=== PATIENT | male | born 1955 | race African-American/Black ===

== ENCOUNTER 2020-01-01 15:13 | Inpatient (IN) | payer MEDICARE, OTHER ==
[2020-01-01] VITALS (13 sets, daily range): BP systolic 127–158; BP diastolic 72–99
[~2020-01-01] VITALS: Ht 172.7 cm; Wt 83.9 kg
[2020-01-01] MEDS ORDERED: Solu-MEDROL 125mg Inj IVP ONE (15:30)
[2020-01-01] MEDS ORDERED: Terbutaline 1mg/ml Inj SUBQ ONE (15:30)
[2020-01-01] MEDS ORDERED: Rocuronium Bromide 50mg/5ml Inj IV ONE (15:45)
[2020-01-01] MEDS ORDERED: Etomidate 40mg/20ml Inj IV ONE (15:45)
[2020-01-01] MEDS ORDERED: Albuterol/Ipratropium 3ml neb ONE ×2 (16:17→18:03)
[2020-01-01 17:09] LABS: ALANINE AMINOTRANSFERASE 34 U/L (12-78); ALBUMIN 3.5 G/DL (3.4-5.0); ALBUMIN/GLOBULIN RATIO 0.9 (1.0-2.7); ALKALINE PHOSPHATASE 84 U/L (46-116); ANION GAP 17 mmol/L (5-15); ASPARTATE AMINO TRANSFERASE 38 U/L (15-37); BILIRUBIN,TOTAL 0.6 MG/DL (0.2-1.0); BLOOD UREA NITROGEN 11 mg/dL (7-18); CALCIUM 8.8 MG/DL (8.5-10.1); CARBON DIOXIDE 21 MMOL/L (21-32); CHLORIDE 104 MMOL/L (98-107); CKMB 17.1 NG/ML (0.0-3.6); CREATINE KINASE 1165 U/L (26-308); CREATININE 1.4 MG/DL (0.55-1.30); POTASSIUM 3.9 MMOL/L (3.5-5.1); SODIUM 142 MMOL/L (136-145); TRIGLYCERIDES 264 MG/DL (30-150)
[2020-01-01 17:29] LABS: BASOPHILS % (AUTO) 1.4 % (0.0-2.0); EOSINOPHILS % (AUTO) 2.2 % (0.0-3.0); HEMOGLOBIN 13.9 G/DL (14.2-18.0); LYMPHOCYTES % (AUTO) 28.5 % (20.0-45.0); MEAN CORPUSCULAR VOLUME 98 FL (80-99); NEUTROPHILS % (AUTO) 52.9 % (45.0-75.0); PLATELET COUNT 208 K/UL (150-450); RED BLOOD COUNT 4.18 M/UL (4.70-6.10); RED CELL DISTRIBUTION WIDTH 13.5 % (11.6-14.8); WHITE BLOOD COUNT 14.8 K/UL (4.8-10.8)
--- NOTE | 2020-01-01 18:08 | Diagnostic Imaging Report ---
Indication: Headache Technique: Contiguous 5 mm thick transaxial imaging of the head obtained in a Siemens Sensation [address] scanner. Soft tissue and bone windows generated. Automatic Exposure Control was utilized. Total Dose length Product (DLP): 1101.1mGycm CT Dose Index Volume (CTDIvol): 53.4 mGy Comparison: none Findings: The size and configuration of the cortical sulci, basal cisterns, and ventricles are within normal limits for age. There is no mass effect, midline shift, or edema identified. There is no evidence of acute hemorrhage or abnormal intra-axial or extra-axial fluid collections. The bones and soft tissues are unremarkable. There is some opacification of the left posterior ethmoid and sphenoid sinus. Impression: No mass effect, edema or acute bleed. Sinusitis The CT scanner at [facility] is accredited by the [employer] and the scans are performed using dose optimization techniques as appropriate to a performed exam including Automatic Exposure control.
--- NOTE | 2020-01-01 18:19 | Diagnostic Imaging Report ---
Indication: Chest pain Technique: Continuous helical transaxial imaging of the chest was obtained from the thoracic inlet to the upper abdomen. No intravenous contrast was administered. Coronal 2-D reformats were also obtained. Total Dose length Product (DLP): 640.[address] Dose Index Volume (CTDIvol): 15.9 mGy Comparison: none Findings: Endotracheal tube is in good position. There is breathing motion limiting evaluation. Reticular densities are present in the posterior aspects of both lung bases. This appears to be atelectasis. There may be a chronic component of this or scarring present but this is not evaluated well. There is suggestion of mild emphysema within the upper lobes. Aorta is calcified. Heart is grossly unremarkable. Upper abdomen shows cholecystectomy clips. There are degenerative vertebral endplate osteophytes throughout the thoracic spine. IMPRESSION: Limited study due to motion. Posterior basilar reticular densities likely atelectasis. Some degree of chronic disease at the lung bases not excluded. Suggestion of a mild emphysema in the upper lobes. Endotracheal tube in good position. Status post cholecystectomy. The CT scanner at [facility] is accredited by the [employer] and the scans are performed using dose optimization techniques as appropriate to a performed exam including Automatic Exposure control.
--- NOTE | 2020-01-01 19:39 | Emergency Room Report ---
History of Present Illness General Chief Complaint: Overdose Source: EMS Present Illness HPI Patient is a 64-year-old male who presents after increased difficulty with breathing and altered mental status. Patient was brought in by EMS for possible overdose. He had been given Narcan in the field with some improvement. He was noted to be markedly short of breath and had some prior history of COPD. He had history of albuterol inhaler. History markedly limited by patient's mental status. Allergies: Coded Allergies: UNABLE TO ASSESS (Unverified , 01/01/20) COVID-19 Screening Contact w/high risk pt: No Recent Travel to affected area: No Experienced COVID-19 symptoms?: No Patient History Past Medical History: other - Unknown Nursing Documentation-[facility] Past Medical History Deferred: Patient Unconscious Past Medical History: No History, Except For Review of Systems All Other Systems: limited - By altered mental status Physical Exam Vital Signs Date Time Temp Pulse Resp B/P (MAP) Pulse Ox O2 Delivery O2 Flow Rate FiO2 01/01/20 15:09 97.5 100 20 210/100 (136) 100 Non-Rebreather 15.0 01/01/20 15:50 94 Procedures Critical Care Time Critical Care Time Patient had a critical medical condition which untreated could potentially result in life or limb threatening injury. Total critical care time excluding procedures approximately 45 minutes. Intubation Intubation : Consent: Emergent Time of Intubation: 19:33 Intubation Method: orotracheal Tube Size (cm): 7.5 Medications: Etomidate, Rocuronium Breath Sounds after Intubation: equal Intubation Complications: no complications Post Intubation Xray: Yes Attempts: One Patient Tolerated: Well Complications: None Medical Decision Making Diagnostic Impression: Primary Impression: Respiratory failure ER Course Patient presented for altered mental status. Differential diagnosis include was not limited to pneumonia,COPD exacerbation, hypercapnia, CVA among others. Because of complexity of patient's case laboratory tests and imaging studies were ordered. CT imaging was ordered due to patient's altered mental status. Arterial blood gas did show some evidence of hypercapnia. This is post intubation. Patient was given IV steroids due to prior history of reactive airway disease. CT imaging was also ordered of the chest. Dr. Francois Dickey was contacted for inpatient management Labs Test 01/01/20 16:20 01/01/20 16:52 01/01/20 19:20 01/01/20 19:25 White Blood Count 14.8 K/UL (4.8-10.8) Red Blood Count 4.18 M/UL (4.70-6.10) Hemoglobin 13.9 G/DL (14.2-18.0) Hematocrit 41.0 % (42.0-52.0) Mean Corpuscular Volume 98 FL (80-99) Mean Corpuscular Hemoglobin 33.2 PG (27.0-31.0) Mean Corpuscular Hemoglobin Concent 33.9 G/DL (32.0-36.0) Red Cell Distribution Width 13.5 % (11.6-14.8) Platelet Count 208 K/UL (150-450) Mean Platelet Volume 6.0 FL (6.5-10.1) Neutrophils (%) (Auto) 52.9 % (45.0-75.0) Lymphocytes (%) (Auto) 28.5 % (20.0-45.0) Monocytes (%) (Auto) 15.0 % (1.0-10.0) Eosinophils (%) (Auto) 2.2 % (0.0-3.0) Basophils (%) (Auto) 1.4 % (0.0-2.0) Sodium Level 142 MMOL/L (136-145) Potassium Level 3.9 MMOL/L (3.5-5.1) Chloride Level 104 MMOL/L (98-107) Carbon Dioxide Level 21 MMOL/L (21-32) Anion Gap 17 mmol/L (5-15) Blood Urea Nitrogen 11 mg/dL (7-18) Creatinine 1.4 MG/DL (0.55-1.30) Estimat Glomerular Filtration Rate > 60 mL/min (>60) Glucose Level 111 MG/DL (74-106) Calcium Level 8.8 MG/DL (8.5-10.1) Phosphorus Level 4.0 MG/DL (2.5-4.9) Magnesium Level 2.0 MG/DL (1.8-2.4) Total Bilirubin 0.6 MG/DL (0.2-1.0) Aspartate Amino Transf (AST/SGOT) 38 U/L (15-37) Alanine Aminotransferase (ALT/SGPT) 34 U/L (12-78) Alkaline Phosphatase 84 U/L (46-116) Total Creatine Kinase 1165 U/L (26-308) Creatine Kinase MB 17.1 NG/ML (0.0-3.6) Creatine Kinase MB Relative Index 1.4 Troponin I 0.000 ng/mL (0.000-0.056) Total Protein 7.4 G/DL (6.4-8.2) Albumin 3.5 G/DL (3.4-5.0) Globulin 3.9 g/dL Albumin/Globulin Ratio 0.9 (1.0-2.7) Triglycerides Level 264 MG/DL (30-150) Arterial Blood pH 7.249 (7.350-7.450) Arterial Blood Partial Pressure CO2 51.1 mmHg (35.0-45.0) Arterial Blood Partial Pressure O2 233.5 mmHg (75.0-100.0) Arterial Blood HCO3 21.9 mmol/L (22.0-26.0) Arterial Blood Oxygen Saturation 99.2 % (95-100) Arterial Blood Base Excess -5.7 (-2-2) Juan Test Positive Last Vital Signs Date Time Temp Pulse Resp B/P (MAP) Pulse Ox O2 Delivery O2 Flow Rate FiO2 01/01/20 18:30 14 145/72 Mechanical Ventilator 100 01/01/20 18:30 97.5 93 100 14.0 Status: unchanged Disposition: ADMITTED INPATIENT Condition: Critical Referrals: NOT CHOSEN IPA/,REFERRING (PCP) Tomasz Boateng MD Jan 01, 2020 19:39
[2020-01-01 19:41] LABS: APPEARANCE,URINE CLEAR; BILIRUBIN, URINE NEGATIVE (NEGATIVE); COLOR,URINE AMBER; GLUCOSE, URINE (UA) NEGATIVE (NEGATIVE); KETONES,URINE NEGATIVE (NEGATIVE); LEUKOCYTE ESTERASE ,URINE NEGATIVE (NEGATIVE); NITRITE,URINE NEGATIVE (NEGATIVE); PH,URINE 5 (4.5-8.0); PROTEIN,URINE 1+ (NEGATIVE); UROBILINOGEN,URINE NORMAL MG/DL (0.0-1.0)
[2020-01-01] MEDS ORDERED: Nitroglycerin Subl 0.4mg tab SL PRN (19:45)
[2020-01-01] MEDS ORDERED: Miralax 17gm pkt ORAL PRN (19:45)
[2020-01-01] MEDS ORDERED: Acetaminophen 650 MG SUPP RECTAL PRN ×2 (19:45)
[2020-01-01] MEDS: D5 1/2NS w/KCl 20mEq 1,000 ML IV SCH (22:05)
[2020-01-01] MEDS: cefTRIAXone 1 GM in D5W 55 ML IV SCH (22:13)
[2020-01-01] MEDS: Heparin 5000 units/ml inj SUBQ SCH (22:14)
[2020-01-01] MEDS: Azithromycin 500 MG in D5W 275 ML IV SCH (22:24)
[2020-01-02] VITALS (45 sets, daily range): BP systolic 88–163; BP diastolic 56–119
[2020-01-02] MEDS: D5 1/2NS w/KCl 20mEq 1,000 ML IV SCH (03:46)
[2020-01-02 06:02] LABS: HEMATOCRIT 42.2 % (42.0-52.0); MEAN CORPUSCULAR VOLUME 100 FL (80-99); PLATELET COUNT 235 K/UL (150-450); RED BLOOD COUNT 4.23 M/UL (4.70-6.10)
[2020-01-02 06:16] LABS: ALANINE AMINOTRANSFERASE 39 U/L (12-78); ALBUMIN 3.4 G/DL (3.4-5.0); ALKALINE PHOSPHATASE 94 U/L (46-116); ANION GAP 9 mmol/L (5-15); ASPARTATE AMINO TRANSFERASE 39 U/L (15-37); BILIRUBIN,DIRECT 0.2 MG/DL (0.0-0.3); BILIRUBIN,TOTAL 0.7 MG/DL (0.2-1.0); BLOOD UREA NITROGEN 17 mg/dL (7-18); CALCIUM 7.9 MG/DL (8.5-10.1); CARBON DIOXIDE 20 MMOL/L (21-32); CHLORIDE 104 MMOL/L (98-107); CREATININE 2.1 MG/DL (0.55-1.30); PHOSPHORUS 2.9 MG/DL (2.5-4.9); SODIUM 134 MMOL/L (136-145)
[2020-01-02 06:20] LABS: WHITE BLOOD COUNT 31.2 K/UL (4.8-10.8)
[2020-01-02 06:43] LABS: POTASSIUM 7.8 MMOL/L (3.5-5.1)
[2020-01-02] MEDS: Heparin 5000 units/ml inj SUBQ SCH ×2 (08:23→20:42)
[2020-01-02] MEDS ORDERED: NS IVPB SCH (10:00)
[2020-01-02] MEDS ORDERED: FENTANYL CITRATE IVPB SCH (10:00)
--- NOTE | 2020-01-02 11:00 | History and Physical Report ---
DATE OF ADMISSION: 01/01/2020 INTENSIVE CARE UNIT NOTE CHIEF COMPLAINT AND REASON FOR HOSPITALIZATION: The patient admitted with respiratory failure. HISTORY OF PRESENT ILLNESS: The patient is a 64-year-old man who presents with respiratory failure. He was seen in the emergency room and intubated. He had a CT of lungs showing right greater than left bilateral basilar atelectasis and infiltrates. The patient has known COPD and hepatitis C. He had a CT of brain that showed no acute findings. There is a concern for possible drug use. ALLERGIES: None known. SURGERIES: None per family. HABITS: He is a current smoker. REVIEW OF SYSTEMS: Unable according to the family. Major problems only as noted above. No other issues. PHYSICAL EXAMINATION: GENERAL: The patient is intubated, sedated. VITAL SIGNS: Blood pressure 98/65 to 106/66, pulse is 84-94, respirations 14-20, O2 saturation is 100% on 70% FiO2, and temperature 98.5. HEAD, EYES, EARS, NOSE, THROAT: His eyes are closed. He is orally intubated. He has an OG tube. NECK: No adenopathy. LUNGS: Distant breath sounds. I hear no rales or rhonchi. HEART: Rhythm is regular. Tachycardic. I hear no murmur. ABDOMEN: Mildly distended. I am unable to feel liver or spleen. GENITOURINARY: Card catheter is in place with some blood-tinged urine. EXTREMITIES: No edema, cyanosis, or clubbing. NEUROLOGIC: The patient is sedated. PERTINENT LABS: Initial white count 14.8 and repeat 31.2, hemoglobin is 14. Sodium 142, potassium 3.9. BUN 11 and creatinine 1.4, repeat 17 and 2.1, with potassium of 7.8, which could be hemolyzed. Troponin zero. CK 1165. AST 38, ALT 34. Lactic acid 4.7 and 1.7. Tox-screen is positive for opiates, benzodiazepines, and marijuana. IMPRESSION: 1. Acute respiratory failure. 2. Pneumonia, likely community-acquired, rule out COVID-19. 3. COPD with acute exacerbation. 4. Rhabdomyolysis. 5. Acute kidney injury, likely from obstruction, possibly from rhabdo. 6. Mild abdominal distention. 7. Mild elevation of liver enzymes. PLAN: All ICU orders have been given pulmonary care treat for pneumonia. Testing for COVID-19 and treating the above as indicated. His condition is critical. I have called the family to discuss. Francois Dickey M.D. DR: LISA JOB#: [id number] CC:
--- NOTE | 2020-01-02 11:54 | Diagnostic Imaging Report ---
Indication: OG tube placement Comparison: None Single view of the abdomen obtained Findings: OG tube is present. The tip is just past the EG junction. The proximal port is above the EG junction. The tube should be advanced minimal 5 cm further. There is a relative absence of bowel gas. Surgical clips in the right upper quadrant noted. IMPRESSION: OG tube is high and should be advanced further. This was discussed with the nurse.
--- NOTE | 2020-01-02 12:23 | Diagnostic Imaging Report ---
Indication: Dyspnea Comparison: None A single view chest radiograph was obtained. Findings: Endotracheal tube is in good position. There is mild pulmonary vascular congestion. Heart is enlarged. No definite pleural effusion seen. IMPRESSION: Mild pulmonary vascular congestion
--- NOTE | 2020-01-02 12:35 | Diagnostic Imaging Report ---
Indication: Dyspnea Comparison: 01/01/2020 A single view chest radiograph was obtained. Findings: No definite infiltrate or pulmonary vascular congestion identified. Endotracheal tube position satisfactory. There is an NG tube present but the the distal part of the tube is not seen well on this study and its position is unknown. The heart is enlarged. The aorta is mildly enlarged consistent with atherosclerotic vascular disease. The bones are osteopenic. There are thoracic vertebral enthesophytes at multiple levels. Impression: No change Query position of the NG tube which may terminate in the midesophagus.
[2020-01-02] MEDS: fentaNYL Citrate 2500mcg in NS 250ml IV SCH ×2 (12:40→23:11)
[2020-01-02] MEDS: Solu-MEDROL 40mg Inj IVP SCH ×2 (15:09→23:16)
[2020-01-02] MEDS ORDERED: Heparin1,000 units/500ml Premix(Conc:2 units/ml) IV PRN (18:58)
[2020-01-02] MEDS ORDERED: Lidocaine 1% Plain 30 ml INJ PRN (18:58)
--- NOTE | 2020-01-02 18:59 | Consultation ---
DATE OF CONSULTATION: 01/02/2020 PULMONARY CONSULTATION CONSULTING PHYSICIAN: Hardik Medina M.D. HISTORY OF PRESENT ILLNESS: This is a 64-year-old male who is seen and admitted to the hospital with respiratory failure. He has a history of chronic hep C and COPD. He was intubated by the ER physician. The patient was brought in by paramedics with the history of possible overdose and was given Narcan with some improvement. No other history is known about this patient. He was intubated by the ER physician and is now seen in the ICU. PAST MEDICAL HISTORY: Not known except for COPD and hep C. HOME MEDICATIONS: Unknown. ALLERGIES: None. PHYSICAL EXAMINATION: GENERAL: Revealed an intubated male. VITAL SIGNS: Blood pressure is 117/90, heart rate is 94, and respirations are 18. O2 saturation is 96% on 80% FiO2. HEENT: Unremarkable. LUNGS: Decreased breath sounds bilaterally with normal heart sounds. ABDOMEN: Soft. EXTREMITIES: There is no edema. LABORATORY AND DIAGNOSTIC DATA: Lab testing shows white count 31,000, hemoglobin of 14, and platelet count is normal. Chemistries show potassium of 7.8 and creatinine 2.1. ABG shows pH 7.24, pCO2 51, pO2 of 233. Toxicology is positive for opiates, benzodiazepines, and marijuana. CT chest was obtained, which showed chronic-appearing changes, emphysema, endotracheal tube, status post cholecystectomy, and posterior basal reticular densities suspicious for pneumonia. Head CT was also obtained, which was negative for any acute pathology. Nares was negative for influenza A and B. IMPRESSION: 1. Hyperkalemia. 2. Respiratory failure. 3. Marked leukocytosis. 4. Chronic obstructive pulmonary disease. 5. History of hepatitis C. DISCUSSION: 1. Admit to the hospital. 2. Continue IV fluids. 3. Avoid potassium. 4. Continue azithromycin, Rocephin, Pepcid, infusion. 5. DVT prophylaxis. 6. Propofol infusion. 7. The patient has received Solu-Medrol 40 mg IV x1. I will continue him on the 40 IV q.6 h. 8. Consider broadening antibiotic coverage. 9. We will follow carefully. Wean as tolerated. Hardik Medina M.D. DR: TIMOTHY JOB#: [id number] CC:
[2020-01-02] MEDS: Dyna-Hex 2% Top Sol 2oz TOPIC SCH (20:41)
[2020-01-02] MEDS: Azithromycin 500 MG in D5W 275 ML IV SCH (20:41)
[2020-01-02] MEDS: cefTRIAXone 1 GM in D5W 55 ML IV SCH (23:16)
[2020-01-03] VITALS (56 sets, daily range): BP systolic 93–195; BP diastolic 27–144
[2020-01-03 00:03] LABS: ANION GAP 10 mmol/L (5-15); BLOOD UREA NITROGEN 21 mg/dL (7-18); CALCIUM 8.2 MG/DL (8.5-10.1); CARBON DIOXIDE 24 MMOL/L (21-32); CHLORIDE 104 MMOL/L (98-107); CREATININE 1.2 MG/DL (0.55-1.30); SODIUM 137 MMOL/L (136-145)
[2020-01-03 00:09] LABS: POTASSIUM 6.3 MMOL/L (3.5-5.1)
[2020-01-03 05:48] LABS: HEMATOCRIT 39.1 % (42.0-52.0); HEMOGLOBIN 12.9 G/DL (14.2-18.0); MEAN CORPUSCULAR VOLUME 101 FL (80-99); PLATELET COUNT 176 K/UL (150-450); RED BLOOD COUNT 3.86 M/UL (4.70-6.10); RED CELL DISTRIBUTION WIDTH 13.4 % (11.6-14.8)
[2020-01-03 05:55] LABS: WHITE BLOOD COUNT 29.3 K/UL (4.8-10.8)
[2020-01-03 05:58] LABS: ALANINE AMINOTRANSFERASE 41 U/L (12-78); ALBUMIN 3.2 G/DL (3.4-5.0); ALBUMIN/GLOBULIN RATIO 0.8 (1.0-2.7); ALKALINE PHOSPHATASE 74 U/L (46-116); ANION GAP 7 mmol/L (5-15); ASPARTATE AMINO TRANSFERASE 52 U/L (15-37); BILIRUBIN,TOTAL 0.4 MG/DL (0.2-1.0); BLOOD UREA NITROGEN 22 mg/dL (7-18); CARBON DIOXIDE 26 MMOL/L (21-32); CHLORIDE 99 MMOL/L (98-107); CREATINE KINASE 1759 U/L (26-308); CREATININE 1.1 MG/DL (0.55-1.30); POTASSIUM 5.8 MMOL/L (3.5-5.1); SODIUM 132 MMOL/L (136-145)
[2020-01-03] MEDS: Solu-MEDROL 40mg Inj IVP SCH ×3 (06:33→22:02)
--- NOTE | 2020-01-03 07:24 | General Progress Note ---
Assessment/Plan Problem List: (1) Rhabdomyolysis ICD Codes: M62.82 - Rhabdomyolysis SNOMED: 351159461 (2) Elevated liver enzymes ICD Codes: R74.8 - Abnormal levels of other serum enzymes SNOMED: 182232374 (3) Hyperkalemia ICD Codes: E87.5 - Hyperkalemia SNOMED: 53344889 (4) LUDMILA (acute kidney injury) ICD Codes: N17.9 - Acute kidney failure, unspecified SNOMED: 1921370, 55486425 (5) Suspected COVID-19 virus infection ICD Codes: R68.89 - Other general symptoms and signs SNOMED: 472886758 (6) COPD (chronic obstructive pulmonary disease) ICD Codes: J44.9 - Chronic obstructive pulmonary disease, unspecified SNOMED: 52381357 (7) Respiratory failure ICD Codes: J96.90 - Respiratory failure, unspecified, unspecified whether with hypoxia or hypercapnia SNOMED: 427711511 Assessment/Plan: He needs more sedation, propofol, picc as poor access, vigorous hydration , ludmila and K improving, Vent care, icu orders reviewed and updated, icu time 35 min Subjective ROS Limited/Unobtainable: Yes Allergies: Coded Allergies: UNABLE TO ASSESS (Unverified , 01/01/20) Subjective on vent, agitated, 70% FIO2 Objective Last 24 Hour Vital Signs Date Time Temp Pulse Resp B/P (MAP) Pulse Ox O2 Delivery O2 Flow Rate FiO2 01/03/20 06:34 116 18 01/03/20 06:00 115 18 157/79 (105) 93 01/03/20 06:00 18 Mechanical Ventilator 01/03/20 05:25 109 18 70 01/03/20 05:00 18 Mechanical Ventilator 01/03/20 04:00 70 01/03/20 04:00 Mechanical Ventilator 01/03/20 04:00 14 Mechanical Ventilator 01/03/20 04:00 101 01/03/20 04:00 99.2 105 14 157/64 (95) 96 01/03/20 03:25 104 17 70 01/03/20 03:00 103 13 132/78 (96) 95 01/03/20 03:00 17 Mechanical Ventilator 01/03/20 02:00 13 Mechanical Ventilator 01/03/20 01:19 106 18 70 01/03/20 01:00 99 14 132/67 (88) 98 01/03/20 01:00 18 Mechanical Ventilator 01/03/20 00:00 70 01/03/20 00:00 Mechanical Ventilator 01/03/20 00:00 76 01/03/20 00:00 21 Mechanical Ventilator 01/03/20 00:00 98.6 112 16 147/115 (126) 93 01/02/20 23:20 114 17 70 01/02/20 23:11 17 Mechanical Ventilator 70 01/02/20 23:00 114 18 142/119 (127) 98 01/02/20 22:00 107 21 119/90 (100) 96 01/02/20 21:30 106 16 70 01/02/20 21:00 106 11 143/80 (101) 95 01/02/20 21:00 17 Mechanical Ventilator 01/02/20 20:00 Mechanical Ventilator 01/02/20 20:00 13 Mechanical Ventilator 01/02/20 20:00 70 01/02/20 20:00 88 01/02/20 20:00 98.7 113 13 129/106 (114) 94 01/02/20 19:20 106 17 70 01/02/20 19:00 94 16 135/65 (88) 98 01/02/20 19:00 16 Mechanical Ventilator 70 01/02/20 19:00 99.0 96 15 120/79 (93) 99 01/02/20 18:30 107 18 133/69 (90) 97 01/02/20 18:21 99.6 01/02/20 18:00 96 15 120/79 (93) 99 01/02/20 18:00 14 Mechanical Ventilator 70 01/02/20 17:30 100.0 113 15 108/82 (91) 94 01/02/20 17:00 14 Mechanical Ventilator 70 01/02/20 17:00 99 18 131/62 (85) 98 01/02/20 16:40 93 21 90 01/02/20 16:30 83 13 111/77 (88) 97 01/02/20 16:02 88 01/02/20 16:00 89 13 127/71 (89) 96 01/02/20 16:00 70 01/02/20 16:00 14 Mechanical Ventilator 70 01/02/20 16:00 Mechanical Ventilator 01/02/20 15:30 93 16 116/67 (83) 96 01/02/20 15:00 95 15 116/67 (83) 96 01/02/20 15:00 14 Mechanical Ventilator 70 01/02/20 14:53 82 14 90 01/02/20 14:30 82 14 120/63 (82) 100 01/02/20 14:15 84 14 129/68 (88) 99 01/02/20 14:00 84 13 125/62 (83) 99 01/02/20 14:00 14 Mechanical Ventilator 70 01/02/20 13:30 88 15 118/67 (84) 98 01/02/20 13:00 86 13 106/64 (78) 98 01/02/20 13:00 14 Mechanical Ventilator 70 01/02/20 12:45 92 20 90 01/02/20 12:40 16 Mechanical Ventilator 70 01/02/20 12:30 78 13 135/81 (99) 100 01/02/20 12:11 76 01/02/20 12:00 14 Mechanical Ventilator 70 01/02/20 12:00 98.5 76 14 129/74 (92) 100 01/02/20 12:00 Mechanical Ventilator 01/02/20 12:00 70 01/02/20 11:30 75 14 131/69 (89) 100 01/02/20 11:01 93 16 80 01/02/20 11:00 14 Mechanical Ventilator 70 01/02/20 11:00 77 14 127/79 (95) 99 01/02/20 10:30 80 14 121/72 (88) 99 01/02/20 10:00 83 19 129/77 (94) 98 01/02/20 10:00 14 Mechanical Ventilator 70 01/02/20 09:30 95 16 117/93 (101) 96 01/02/20 09:02 91 18 90 01/02/20 09:00 96 16 141/85 (103) 96 01/02/20 09:00 16 Mechanical Ventilator 70 01/02/20 08:45 92 11 115/56 (75) 97 01/02/20 08:30 95 11 163/94 (117) 97 01/02/20 08:24 16 Mechanical Ventilator 70 01/02/20 08:00 70 01/02/20 08:00 Mechanical Ventilator 01/02/20 08:00 16 Mechanical Ventilator 70 01/02/20 08:00 93 14 113/71 (85) 99 01/02/20 07:35 91 01/02/20 07:30 94 16 117/72 (87) 99 Intake and Output 01/02/20 01/03/20 19:00 07:00 Intake Total 2611.666 ml 2046 ml Output Total 870 ml 485 ml Balance 1741.666 ml 1561 ml IV Total 2611.666 ml 2046 ml Output Urine Total 870 ml 485 ml Laboratory Tests 01/02/20 23:26: Sodium Level 137, Potassium Level 6.3*H, Chloride Level 104, Carbon Dioxide Level 24, Anion Gap 10, Blood Urea Nitrogen 21H, Creatinine 1.2, Estimat Glomerular Filtration Rate > 60, Glucose Level 102, Calcium Level 8.2L 01/03/20 04:00: Sodium Level 132L, Potassium Level 5.8H, Chloride Level 99, Carbon Dioxide Level 26, Anion Gap 7, Blood Urea Nitrogen 22H, Creatinine 1.1, Estimat Glomerular Filtration Rate > 60, Glucose Level 87, Calcium Level 8.0L, White Blood Count 29.3*H, Red Blood Count 3.86L, Hemoglobin 12.9L, Hematocrit 39.1L, Mean Corpuscular Volume 101H, Mean Corpuscular Hemoglobin 33.3H, Mean Corpuscular Hemoglobin Concent 32.9, Red Cell Distribution Width 13.4, Platelet Count 176, Mean Platelet Volume 5.8L, Neutrophils (%) (Auto) , Lymphocytes (%) ( Auto) , Monocytes (%) (Auto) , Eosinophils (%) (Auto) , Basophils (%) (Auto) , Neutrophils % (Manual) [Pending], Lymphocytes % (Manual) [Pending], Platelet Estimate [Pending], Platelet Morphology [Pending], Total Bilirubin 0.4, Aspartate Amino Transf (AST/SGOT) 52H, Alanine Aminotransferase (ALT/SGPT) 41, Alkaline Phosphatase 74, Total Creatine Kinase 1759H, Troponin I 0.026, Total Protein 7.0, Albumin 3.2L, Globulin 3.8, Albumin/Globulin Ratio 0.8L Height (Feet): 5 Height (Inches): 8.00 Weight (Pounds): 200 General Appearance: moderate distress EENT: normal ENT inspection Neck: normal alignment Cardiovascular: regular rhythm, tachycardia Respiratory/Chest: rhonchi - bilaterally Abdomen: non tender Neurologic: other - agitated moves all ext Lang,Francois MD Jan 03, 2020 07:24
[2020-01-03] MEDS: fentaNYL Citrate 2500mcg in NS 250ml IV SCH ×3 (07:36→20:24)
[2020-01-03] MEDS: Heparin 5000 units/ml inj SUBQ SCH ×2 (09:00→20:42)
--- NOTE | 2020-01-03 11:08 | Brief Operative Note ---
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
--- NOTE | 2020-01-03 11:09 | Pulmonology Progress Note ---
Assessment/Plan Assessment/Plan IMPRESSION: 1. Hyperkalemia. 2. Respiratory failure. 3. Marked leukocytosis. 4. Chronic obstructive pulmonary disease. 5. History of hepatitis C. DISCUSSION: 1. Will adjust vent 2. Continue IV fluids. 3. Avoid potassium. 4. Continue azithromycin, Rocephin, Pepcid, propofol infusion. 5. DVT prophylaxis. 6. Check AM labs and ABG 7. The patient has received Solu-Medrol 40 mg IV x1. I will continue him on the 40 IV q.6 h. 8. Broad antibiotic coverage. 9. I will follow carefully. Wean as tolerated. Hardik Medina M.D. Subjective Interval Events: Remains intubated; doing poorly Constitutional: Reports: no symptoms HEENT: Repors: no symptoms Respiratory: Reports: no symptoms Cardiovascular: Reports: no symptoms Gastrointestinal/Abdominal: Reports: no symptoms Allergies: Coded Allergies: UNABLE TO ASSESS (Unverified , 01/01/20) Objective Last 24 Hour Vital Signs Date Time Temp Pulse Resp B/P (MAP) Pulse Ox O2 Delivery O2 Flow Rate FiO2 01/03/20 10:55 60 01/03/20 10:42 109 20 60 01/03/20 10:05 70 01/03/20 09:25 106 19 70 01/03/20 09:00 124 35 143/102 (116) 98 01/03/20 08:00 124 35 143/102 (116) 98 01/03/20 08:00 70 01/03/20 08:00 Mechanical Ventilator 01/03/20 07:51 111 37 70 01/03/20 07:30 97.4 120 18 170/117 (134) 96 01/03/20 07:00 120 18 170/117 (134) 96 01/03/20 07:00 22 Mechanical Ventilator 01/03/20 06:34 116 18 01/03/20 06:00 115 18 157/79 (105) 93 01/03/20 06:00 18 Mechanical Ventilator 01/03/20 05:25 109 18 70 01/03/20 05:00 117 18 170/117 (134) 94 01/03/20 05:00 18 Mechanical Ventilator 01/03/20 04:00 70 01/03/20 04:00 Mechanical Ventilator 01/03/20 04:00 14 Mechanical Ventilator 01/03/20 04:00 101 01/03/20 04:00 99.2 105 14 157/64 (95) 96 01/03/20 03:25 104 17 70 01/03/20 03:00 103 13 132/78 (96) 95 01/03/20 03:00 17 Mechanical Ventilator 01/03/20 02:00 13 Mechanical Ventilator 01/03/20 02:00 104 14 150/74 (99) 95 01/03/20 01:19 106 18 70 01/03/20 01:00 99 14 132/67 (88) 98 01/03/20 01:00 18 Mechanical Ventilator 01/03/20 00:00 70 01/03/20 00:00 Mechanical Ventilator 01/03/20 00:00 76 01/03/20 00:00 21 Mechanical Ventilator 01/03/20 00:00 98.6 112 16 147/115 (126) 93 01/02/20 23:20 114 17 70 01/02/20 23:11 17 Mechanical Ventilator 70 01/02/20 23:00 114 18 142/119 (127) 98 01/02/20 22:00 107 21 119/90 (100) 96 01/02/20 21:30 106 16 70 01/02/20 21:00 106 11 143/80 (101) 95 01/02/20 21:00 17 Mechanical Ventilator 01/02/20 20:00 Mechanical Ventilator 01/02/20 20:00 13 Mechanical Ventilator 01/02/20 20:00 70 01/02/20 20:00 88 01/02/20 20:00 98.7 113 13 129/106 (114) 94 01/02/20 19:20 106 17 70 01/02/20 19:00 94 16 135/65 (88) 98 01/02/20 19:00 16 Mechanical Ventilator 70 01/02/20 19:00 99.0 96 15 120/79 (93) 99 01/02/20 18:30 107 18 133/69 (90) 97 01/02/20 18:21 99.6 01/02/20 18:00 96 15 120/79 (93) 99 01/02/20 18:00 14 Mechanical Ventilator 70 01/02/20 17:30 100.0 113 15 108/82 (91) 94 01/02/20 17:00 14 Mechanical Ventilator 70 01/02/20 17:00 99 18 131/62 (85) 98 01/02/20 16:40 93 21 90 01/02/20 16:30 83 13 111/77 (88) 97 01/02/20 16:02 88 01/02/20 16:00 89 13 127/71 (89) 96 01/02/20 16:00 70 01/02/20 16:00 14 Mechanical Ventilator 70 01/02/20 16:00 Mechanical Ventilator 01/02/20 15:30 93 16 116/67 (83) 96 01/02/20 15:00 95 15 116/67 (83) 96 01/02/20 15:00 14 Mechanical Ventilator 70 01/02/20 14:53 82 14 90 01/02/20 14:30 82 14 120/63 (82) 100 01/02/20 14:15 84 14 129/68 (88) 99 01/02/20 14:00 84 13 125/62 (83) 99 01/02/20 14:00 14 Mechanical Ventilator 70 01/02/20 13:30 88 15 118/67 (84) 98 01/02/20 13:00 86 13 106/64 (78) 98 01/02/20 13:00 14 Mechanical Ventilator 70 01/02/20 12:45 92 20 90 01/02/20 12:40 16 Mechanical Ventilator 70 01/02/20 12:30 78 13 135/81 (99) 100 01/02/20 12:11 76 01/02/20 12:00 14 Mechanical Ventilator 70 01/02/20 12:00 98.5 76 14 129/74 (92) 100 01/02/20 12:00 Mechanical Ventilator 01/02/20 12:00 70 01/02/20 11:30 75 14 131/69 (89) 100 Intake and Output 01/02/20 01/03/20 19:00 07:00 Intake Total 2611.666 ml 2281 ml Output Total 870 ml 545 ml Balance 1741.666 ml 1736 ml IV Total 2611.666 ml 2281 ml Output Urine Total 870 ml 545 ml General Appearance: no acute distress HEENT: normocephalic Respiratory/Chest: chest wall non-tender, lungs clear Cardiovascular: normal peripheral pulses Abdomen: normal bowel sounds Microbiology Date/Time Source Procedure Growth Status 01/01/20 16:11 Blood Blood Culture - Preliminary NO GROWTH AFTER 24 HOURS Resulted 01/01/20 15:29 Blood Blood Culture - Preliminary Resulted 01/01/20 19:00 Nasal Nares MRSA Culture - Final NO METHICILLIN RESISTANT STAPH AUREUS... Complete 01/01/20 17:10 Nasal Nares - Final Complete 01/01/20 17:10 Nasal Nares - Final Complete 01/01/20 19:00 Rectum VRE Culture - Final NO VANCOMYCIN RESISTANT ENTEROCOCCUS ... Complete Laboratory Tests 01/02/20 23:26: Sodium Level 137, Potassium Level 6.3*H, Chloride Level 104, Carbon Dioxide Level 24, Anion Gap 10, Blood Urea Nitrogen 21H, Creatinine 1.2, Estimat Glomerular Filtration Rate > 60, Glucose Level 102, Calcium Level 8.2L 01/03/20 04:00: Sodium Level 132L, Potassium Level 5.8H, Chloride Level 99, Carbon Dioxide Level 26, Anion Gap 7, Blood Urea Nitrogen 22H, Creatinine 1.1, Estimat Glomerular Filtration Rate > 60, Glucose Level 87, Calcium Level 8.0L, White Blood Count 29.3*H, Red Blood Count 3.86L, Hemoglobin 12.9L, Hematocrit 39.1L, Mean Corpuscular Volume 101H, Mean Corpuscular Hemoglobin 33.3H, Mean Corpuscular Hemoglobin Concent 32.9, Red Cell Distribution Width 13.4, Platelet Count 176, Mean Platelet Volume 5.8L, Neutrophils (%) (Auto) , Lymphocytes (%) ( Auto) , Monocytes (%) (Auto) , Eosinophils (%) (Auto) , Basophils (%) (Auto) , Differential Total Cells Counted 100, Neutrophils % (Manual) 83H, Lymphocytes % (Manual) 7L, Monocytes % (Manual) 9, Eosinophils % (Manual) 1, Basophils % ( Manual) 0, Band Neutrophils 0, Platelet Estimate Adequate, Platelet Morphology Normal, Anisocytosis 1+, Macrocytosis 1+, Total Bilirubin 0.4, Aspartate Amino Transf (AST/SGOT) 52H, Alanine Aminotransferase (ALT/SGPT) 41, Alkaline Phosphatase 74, Total Creatine Kinase 1759H, Troponin I 0.026, Total Protein 7.0 , Albumin 3.2L, Globulin 3.8, Albumin/Globulin Ratio 0.8L, Triglycerides Level 190H 01/03/20 07:40: Arterial Blood pH 7.155*L, Arterial Blood Partial Pressure CO2 59.6*H, Arterial Blood Partial Pressure O2 71.6L, Arterial Blood HCO3 20.5L, Arterial Blood Oxygen Saturation 92.7L, Arterial Blood Base Excess -8.8L, Juan Test Positive Current Medications Medications (Trade) Dose Ordered Sig/Samia Route PRN Reason Start Time Stop Time Status Last Admin Dose Admin Acetaminophen (Tylenol) 650 mg Q4H PRN ORAL fever 01/01/20 19:45 01/31/20 19:44 01/02/20 17:51 Acetaminophen (Tylenol) 650 mg Q4H PRN ORAL Mild Pain (Pain Scale 1-3) 01/01/20 19:45 01/31/20 19:44 Acetaminophen (Tylenol) 650 mg Q4H PRN RECTAL Mild Pain (Pain Scale 1-3) 01/01/20 19:45 01/31/20 19:44 Acetaminophen (Tylenol) 650 mg Q4H PRN RECTAL fever 01/01/20 19:45 01/31/20 19:44 Azithromycin 500 mg/Dextrose 275 ml @ 275 mls/hr Q24H IV 01/01/20 21:00 01/06/20 20:59 01/02/20 20:41 Ceftriaxone Sodium 1 gm/ Dextrose 55 ml @ 110 mls/hr Q24H IV 01/01/20 22:00 01/08/20 21:59 01/02/20 23:16 Chlorhexidine Gluconate (Bhavana-Hex 2%) 1 applic DAILY@2000 TOPIC 01/02/20 20:00 04/01/20 19:59 01/02/20 20:41 Dextrose (Dextrose 50%) 25 ml Q30M PRN IV Hypoglycemia 01/01/20 19:45 03/31/20 19:44 Dextrose (Dextrose 50%) 50 ml Q30M PRN IV Hypoglycemia 01/01/20 19:45 03/31/20 19:44 Famotidine (Pepcid I.v.) 20 mg Q12HR IVP 01/01/20 21:00 01/31/20 20:59 01/02/20 20:41 Fentanyl Citrate 2500 mcg/Sodium Chloride 250 ml @ 0 mls/hr Q24H IV 01/02/20 10:20 01/09/20 10:19 01/02/20 23:11 Haloperidol Lactate 5 mg/ Dextrose 56 ml @ 224 mls/hr Q6H PRN IVPB Agitation 01/03/20 10:00 02/17/20 09:59 Heparin Sodium (Porcine) (Heparin 5000 units/ml) 5,000 units EVERY 12 HOURS SUBQ 01/01/20 21:00 02/15/20 20:59 01/02/20 20:42 Heparin Sodium/ Sodium Chloride (Heparin 1000 units/500ml Premix) 1,000 unit ONCE PRN IV PICC PLACEMENT 01/02/20 18:58 01/04/20 18:57 Lidocaine HCl (Xylocaine 1% 30ml) 30 ml ONCE PRN INJ PICC PLACEMENT 01/02/20 18:58 01/04/20 18:57 Methylprednisolone Sodium Succinate (Solu-MEDROL) 40 mg EVERY 8 HOURS IVP 01/02/20 14:00 04/01/20 13:59 01/03/20 06:33 Nitroglycerin (Ntg) 0.4 mg Q5M PRN SL Prn Chest Pain 01/01/20 19:45 01/31/20 19:44 Ondansetron HCl (Zofran) 4 mg Q6H PRN IVP Nausea & Vomiting 01/01/20 19:45 01/31/20 19:44 Polyethylene Glycol (Miralax) 17 gm DAILYPRN PRN ORAL Constipation 01/01/20 19:45 01/31/20 19:44 Propofol 100 ml @ 0 mls/hr Q24H IV 01/03/20 07:30 01/05/20 07:29 Sodium Chloride 1,000 ml @ 200 mls/hr Q5H IV 01/02/20 08:00 02/01/20 07:59 01/03/20 04:10 Hardik Medina MD Jan 03, 2020 11:09
--- NOTE | 2020-01-03 12:00 | Diagnostic Imaging Report ---
Indications: Needs long-term IV access Technique: Procedure performed at bedside. Procedural timeout performed. Ultrasound confirms patent compressible left basilic vein. Total sterile technique, including sterile probe cover and sterile gel, sterile gloves, hand hygiene, hat, mask,, sterile gown, large sterile drape, and preparation with 2% chlorhexidine utilized. Local anesthesia with 1% lidocaine. Under real-time ultrasound guidance, puncture basilic vein using 21-gauge needle, passage 0.018 guidewire, exchange for 4 Greek peel-away sheath. 4 Greek Bard dual-lumen power PICC cut to 47 cm. It was inserted through the peel-away sheath. Peel-away sheath and guidewire removed. Catheter fixed to the skin. Both catheter ports aspirated and flushed. Patient tolerated procedure well, without immediate complication. Followup chest x-ray obtained, documents catheter tip position at the high right atrium Impression: Successful bedside placement of right arm PICC under sonographic guidance, as described above.
--- NOTE | 2020-01-03 12:17 | Diagnostic Imaging Report ---
Indication: Dyspnea Technique: One view of the chest Comparison: 01/02/2020 Findings: Stable satisfactory position of endotracheal tube. Orogastric tube tip is obscured, was slightly high on previous abdomen radiograph. There is some atelectasis in the right perihilar region which was not evident previously. Bilateral generalized interstitial disease is largely unchanged on the left, appears to have increased on the right. The heart size is normal. Impression: Bilateral interstitial disease, stable on the left and slightly worse on the right Developing right perihilar atelectasis, over one day
[2020-01-03] MEDS: Haloperidol Lactate 5 MG in D5W 55 ML IVPB PRN ×2 (13:50→22:03)
[2020-01-03] MEDS ORDERED: FUROSEMIDE40 MG ORAL (16:32)
[2020-01-03] MEDS ORDERED: VITAMIN D32400 UNIT/ MC (16:32)
[2020-01-03] MEDS ORDERED: COMBIVENT RESPIM4 GM IH (16:32)
[2020-01-03] MEDS ORDERED: MEDROL DOSEPAK4 MG ORAL (16:32)
[2020-01-03] MEDS ORDERED: CARTIA XT180 MG ORAL (16:32)
[2020-01-03] MEDS ORDERED: FLOMAX0.4 MG ORAL (16:32)
[2020-01-03] MEDS ORDERED: BACLOFEN10 MG ORAL (16:32)
[2020-01-03] MEDS ORDERED: SYMBICORT 16010.2 G1 IH (16:32)
[2020-01-03] MEDS ORDERED: POTASSIUM CHLO20 ME2 ORAL (16:32)
[2020-01-03] MEDS ORDERED: ZOFRAN4 M3 ORAL (16:32)
[2020-01-03] MEDS ORDERED: FOLIC ACID0.4 MG ORAL (16:32)
[2020-01-03] MEDS ORDERED: OMEPRAZOLE40 M1 ORAL (16:32)
[2020-01-03] MEDS ORDERED: PROAIR HFA8.5 GM INH (16:32)
[2020-01-03] MEDS ORDERED: Heparin1,000 units/500ml Premix(Conc:2 units/ml) IV PRN (17:15)
[2020-01-03] MEDS ORDERED: Lidocaine 1% Plain 30 ml INJ PRN (17:19)
[2020-01-03] MEDS ORDERED: Vancomycin 1750mg/D5W 550ml IVPB ONE ×2 (19:30)
[2020-01-03] MEDS: Dyna-Hex 2% Top Sol 2oz TOPIC SCH (20:21)
[2020-01-03] MEDS: Azithromycin 500 MG in D5W 275 ML IV SCH (20:22)
[2020-01-03] MEDS: cefTRIAXone 1 GM in D5W 55 ML IV SCH (22:01)
[2020-01-04] VITALS (83 sets, daily range): BP systolic 100–209; BP diastolic 67–137
[2020-01-04] MEDS: fentaNYL Citrate 2500mcg in NS 250ml IV SCH ×3 (03:28→23:08)
[2020-01-04] MEDS: Vancomycin 1.25gm/NS Premix IVPB SCH ×2 (05:00→17:38)
[2020-01-04] MEDS: Solu-MEDROL 40mg Inj IVP SCH ×3 (05:14→22:44)
[2020-01-04 05:30] LABS: HEMATOCRIT 38.9 % (42.0-52.0); HEMOGLOBIN 13.2 G/DL (14.2-18.0); MEAN CORPUSCULAR VOLUME 98 FL (80-99); PLATELET COUNT 157 K/UL (150-450); RED BLOOD COUNT 3.98 M/UL (4.70-6.10); RED CELL DISTRIBUTION WIDTH 12.7 % (11.6-14.8)
[2020-01-04 05:52] LABS: WHITE BLOOD COUNT 23.4 K/UL (4.8-10.8)
[2020-01-04 05:53] LABS: ALANINE AMINOTRANSFERASE 46 U/L (12-78); ALBUMIN 2.9 G/DL (3.4-5.0); ALBUMIN/GLOBULIN RATIO 0.8 (1.0-2.7); ALKALINE PHOSPHATASE 62 U/L (46-116); ANION GAP 9 mmol/L (5-15); ASPARTATE AMINO TRANSFERASE 60 U/L (15-37); BILIRUBIN,TOTAL 0.7 MG/DL (0.2-1.0); BLOOD UREA NITROGEN 21 mg/dL (7-18); CALCIUM 8.4 MG/DL (8.5-10.1); CARBON DIOXIDE 26 MMOL/L (21-32); CHLORIDE 101 MMOL/L (98-107); CREATININE 0.9 MG/DL (0.55-1.30); POTASSIUM 4.8 MMOL/L (3.5-5.1); SODIUM 136 MMOL/L (136-145)
[2020-01-04 05:58] LABS: PHOSPHORUS 2.3 MG/DL (2.5-4.9)
--- NOTE | 2020-01-04 08:56 | Pulmonology Progress Note ---
Assessment/Plan Assessment/Plan IMPRESSION: 1. Hyperkalemia. 2. Respiratory failure. 3. Marked leukocytosis. 4. Chronic obstructive pulmonary disease. 5. History of hepatitis C. DISCUSSION: 1. Will adjust vent; continue 2. Continue IV fluids. 3. Avoid potassium. 4. Continue azithromycin, Rocephin, Pepcid, propofol infusion. 5. DVT prophylaxis. 6. Check AM labs and ABG 7. Solu-Medrol 40 IV q.6 h. 8. Broad antibiotic coverage. 9. I will follow carefully. Wean as tolerated. Hardik Medina M.D. Subjective Interval Events: Doing poorly; bactermic Constitutional: Reports: no symptoms HEENT: Repors: no symptoms Respiratory: Reports: no symptoms Cardiovascular: Reports: no symptoms Gastrointestinal/Abdominal: Reports: no symptoms Allergies: Coded Allergies: UNABLE TO ASSESS (Unverified , 01/01/20) Objective Last 24 Hour Vital Signs Date Time Temp Pulse Resp B/P (MAP) Pulse Ox O2 Delivery O2 Flow Rate FiO2 01/04/20 06:30 116 18 01/04/20 06:30 110 18 01/04/20 06:14 18 133/104 Mechanical Ventilator 70 01/04/20 06:00 22 135/85 Mechanical Ventilator 70 01/04/20 06:00 15 Mechanical Ventilator 70 01/04/20 05:45 116 16 135/85 (102) 01/04/20 05:30 115 17 167/129 (142) 01/04/20 05:28 115 18 60 01/04/20 05:15 124 11 157/88 (111) 01/04/20 05:00 17 204/104 Mechanical Ventilator 70.0 01/04/20 05:00 17 Mechanical Ventilator 70 01/04/20 05:00 127 22 192/98 (129) 01/04/20 04:45 126 24 202/136 (158) 01/04/20 04:30 121 21 179/130 (146) 96 01/04/20 04:15 118 16 169/114 (132) 98 01/04/20 04:00 98.8 114 16 150/90 (110) 96 01/04/20 04:00 Mechanical Ventilator 01/04/20 04:00 122 01/04/20 04:00 22 169/114 Mechanical Ventilator 70 01/04/20 04:00 22 Mechanical Ventilator 70 01/04/20 04:00 70 01/04/20 03:45 111 15 134/86 (102) 95 01/04/20 03:30 105 18 105/76 (86) 98 01/04/20 03:28 18 Mechanical Ventilator 70 01/04/20 03:15 105 17 102/77 (85) 96 01/04/20 03:03 106 18 60 01/04/20 03:00 106 18 103/72 (82) 100 01/04/20 03:00 106 18 103/72 (82) 01/04/20 02:54 17 111/87 70 01/04/20 02:45 104 18 111/87 (95) 98 01/04/20 02:30 104 18 108/70 (83) 98 01/04/20 02:15 105 18 110/68 (82) 100 01/04/20 02:00 105 18 107/74 (85) 98 01/04/20 01:50 106 18 103/75 (84) 100 01/04/20 01:45 105 18 108/75 (86) 98 01/04/20 01:30 106 18 103/74 (84) 98 01/04/20 01:21 107 18 60 01/04/20 01:18 18 106/69 Mechanical Ventilator 70 01/04/20 01:18 18 103/75 Mechanical Ventilator 70 01/04/20 01:15 107 18 106/69 (81) 98 01/04/20 01:03 18 103/74 Mechanical Ventilator 70 01/04/20 01:00 108 18 106/69 (81) 98 01/04/20 01:00 26 Mechanical Ventilator 70 01/04/20 00:48 18 106/69 Mechanical Ventilator 70 01/04/20 00:45 109 18 110/67 (81) 98 01/04/20 00:33 18 113/67 Mechanical Ventilator 70 01/04/20 00:30 99.0 110 18 113/67 (82) 98 01/04/20 00:18 18 110/67 Mechanical Ventilator 70 01/04/20 00:15 110 18 104/67 (79) 4/1/20 00:13 110 18 101/74 (83) 01/04/20 00:00 60 01/04/20 00:00 Mechanical Ventilator 01/04/20 00:00 123 01/04/20 00:00 18 101/74 Mechanical Ventilator 70 01/04/20 00:00 113 18 100/68 (79) 01/03/20 23:48 18 93/62 Mechanical Ventilator 95 01/03/20 23:45 115 18 103/69 (80) 01/03/20 23:43 116 18 93/62 (72) 01/03/20 23:33 18 101/74 Mechanical Ventilator 70 01/03/20 23:30 125 18 127/109 (115) 96 01/03/20 23:30 114 18 60 01/03/20 23:18 18 113/67 Mechanical Ventilator 70 01/03/20 23:15 126 23 139/117 (124) 98 01/03/20 23:03 18 101/74 Mechanical Ventilator 70 01/03/20 23:00 125 28 159/139 (146) 96 01/03/20 23:00 30 Mechanical Ventilator 70 01/03/20 22:51 126 20 149/89 (109) 96 01/03/20 22:48 23 139/117 Mechanical Ventilator 70 01/03/20 22:45 127 29 97 01/03/20 22:33 30 96/76 70 01/03/20 22:30 133 34 131/80 (97) 95 01/03/20 22:15 127 26 96/73 (81) 97 01/03/20 22:00 131 32 141/86 (104) 96 01/03/20 22:00 26 Mechanical Ventilator 01/03/20 21:45 131 30 126/78 (94) 96 01/03/20 21:30 130 34 138/87 (104) 97 01/03/20 21:15 132 35 145/130 (135) 97 01/03/20 21:14 133 35 60 01/03/20 21:00 131 37 134/82 (99) 97 01/03/20 21:00 24 Mechanical Ventilator 70 01/03/20 20:45 124 23 161/73 (102) 97 01/03/20 20:30 129 35 195/102 (133) 96 01/03/20 20:24 19 Mechanical Ventilator 70 01/03/20 20:15 127 34 149/107 (121) 97 01/03/20 20:00 Mechanical Ventilator 01/03/20 20:00 98.8 130 36 158/123 (135) 96 01/03/20 20:00 60 01/03/20 20:00 123 01/03/20 19:45 128 30 168/144 (152) 96 01/03/20 19:40 130 23 60 01/03/20 19:30 126 25 150/93 (112) 95 01/03/20 19:15 131 44 188/93 (124) 93 01/03/20 19:00 127 31 150/90 (110) 94 01/03/20 18:00 26 Mechanical Ventilator 60 01/03/20 18:00 99.8 130 31 160/104 (122) 95 01/03/20 17:30 127 27 167/92 (117) 94 01/03/20 17:06 28 Mechanical Ventilator 60 01/03/20 17:00 30 Mechanical Ventilator 60 01/03/20 17:00 122 23 116/71 (86) 98 01/03/20 16:58 128 33 60 01/03/20 16:52 123 01/03/20 16:30 123 31 137/89 (105) 95 01/03/20 16:00 126 34 137/89 (105) 94 01/03/20 16:00 27 Mechanical Ventilator 60 01/03/20 16:00 60 01/03/20 16:00 Mechanical Ventilator 01/03/20 15:30 100.2 123 29 137/27 (63) 95 01/03/20 15:00 120 41 133/27 (62) 95 01/03/20 15:00 28 Mechanical Ventilator 60 01/03/20 14:53 126 39 60 01/03/20 14:45 124 27 187/103 (131) 95 01/03/20 14:30 125 28 169/107 (127) 95 01/03/20 14:15 123 25 174/102 (126) 95 01/03/20 14:00 26 Mechanical Ventilator 60 01/03/20 14:00 123 26 149/97 (114) 95 01/03/20 13:45 113 18 191/106 (134) 95 01/03/20 13:30 113 20 191/106 (134) 94 01/03/20 13:18 123 28 60 01/03/20 13:15 120 21 173/100 (124) 94 01/03/20 13:00 22 Mechanical Ventilator 60 01/03/20 13:00 130 22 181/104 (129) 92 01/03/20 12:45 100.0 123 26 170/114 (132) 94 01/03/20 12:30 116 19 150/86 (107) 96 01/03/20 12:15 114 18 148/95 (112) 97 01/03/20 12:00 Mechanical Ventilator 01/03/20 12:00 20 Mechanical Ventilator 60 01/03/20 12:00 110 17 160/94 (116) 100 01/03/20 11:45 109 18 152/80 (104) 100 01/03/20 11:30 111 16 179/86 (117) 98 01/03/20 11:17 22 Mechanical Ventilator 60 01/03/20 11:15 112 18 180/92 (121) 100 01/03/20 11:02 108 01/03/20 11:00 108 17 98 01/03/20 10:55 60 01/03/20 10:42 109 20 60 01/03/20 10:05 70 01/03/20 10:00 109 18 98 01/03/20 09:25 106 19 70 01/03/20 09:00 124 35 143/102 (116) 98 Intake and Output 01/03/20 01/04/20 19:00 07:00 Intake Total 1353.333 ml 1521.801 ml Output Total 1460 ml 940 ml Balance -106.667 ml 581.801 ml IV Total 1353.333 ml 1521.801 ml Output Urine Total 1440 ml 940 ml Emesis 20 ml General Appearance: no acute distress HEENT: normocephalic Respiratory/Chest: chest wall non-tender, decreased breath sounds Cardiovascular: normal peripheral pulses Abdomen: normal bowel sounds Microbiology Date/Time Source Procedure Growth Status 01/01/20 16:11 Blood Blood Culture - Preliminary NO GROWTH AFTER 48 HOURS Resulted 01/01/20 15:29 Blood Blood Culture - Preliminary Gram Positive Cocci Resulted 01/01/20 19:00 Nasal Nares MRSA Culture - Final NO METHICILLIN RESISTANT STAPH AUREUS... Complete 01/01/20 17:10 Nasal Nares - Final Complete 01/01/20 17:10 Nasal Nares - Final Complete 01/01/20 19:00 Rectum VRE Culture - Final NO VANCOMYCIN RESISTANT ENTEROCOCCUS ... Complete Laboratory Tests 01/04/20 04:30: White Blood Count 23.4*H, Red Blood Count 3.98L, Hemoglobin 13.2L, Hematocrit 38.9L, Mean Corpuscular Volume 98, Mean Corpuscular Hemoglobin 33.2H, Mean Corpuscular Hemoglobin Concent 34.0, Red Cell Distribution Width 12.7, Platelet Count 157, Mean Platelet Volume 5.7L, Neutrophils (%) (Auto) , Lymphocytes (%) ( Auto) , Monocytes (%) (Auto) , Eosinophils (%) (Auto) , Basophils (%) (Auto) , Differential Total Cells Counted 100, Neutrophils % (Manual) 86H, Lymphocytes % (Manual) 5L, Monocytes % (Manual) 9, Eosinophils % (Manual) 0, Basophils % ( Manual) 0, Band Neutrophils 0, Nucleated Red Blood Cells 2, Platelet Estimate Adequate, Platelet Morphology Normal, Red Blood Cell Morphology Normal, Sodium Level 136, Potassium Level 4.8, Chloride Level 101, Carbon Dioxide Level 26, Anion Gap 9, Blood Urea Nitrogen 21H, Creatinine 0.9, Estimat Glomerular Filtration Rate > 60, Glucose Level 114H, Calcium Level 8.4L, Phosphorus Level 2.3L, Magnesium Level 2.3, Total Bilirubin 0.7, Aspartate Amino Transf (AST/SGOT ) 60H, Alanine Aminotransferase (ALT/SGPT) 46, Alkaline Phosphatase 62, Total Protein 6.6, Albumin 2.9L, Globulin 3.7, Albumin/Globulin Ratio 0.8L Current Medications Medications (Trade) Dose Ordered Sig/Samia Route PRN Reason Start Time Stop Time Status Last Admin Dose Admin Acetaminophen (Tylenol) 650 mg Q4H PRN ORAL fever 01/01/20 19:45 01/31/20 19:44 01/02/20 17:51 Acetaminophen (Tylenol) 650 mg Q4H PRN ORAL Mild Pain (Pain Scale 1-3) 01/01/20 19:45 01/31/20 19:44 Acetaminophen (Tylenol) 650 mg Q4H PRN RECTAL Mild Pain (Pain Scale 1-3) 01/01/20 19:45 01/31/20 19:44 Acetaminophen (Tylenol) 650 mg Q4H PRN RECTAL fever 01/01/20 19:45 01/31/20 19:44 Azithromycin 500 mg/Dextrose 275 ml @ 275 mls/hr Q24H IV 01/01/20 21:00 01/06/20 20:59 01/03/20 20:22 Ceftriaxone Sodium 1 gm/ Dextrose 55 ml @ 110 mls/hr Q24H IV 01/01/20 22:00 01/08/20 21:59 01/03/20 22:01 Chlorhexidine Gluconate (Bhavana-Hex 2%) 1 applic DAILY@2000 TOPIC 01/02/20 20:00 04/01/20 19:59 01/03/20 20:21 Dextrose (Dextrose 50%) 25 ml Q30M PRN IV Hypoglycemia 01/01/20 19:45 03/31/20 19:44 Dextrose (Dextrose 50%) 50 ml Q30M PRN IV Hypoglycemia 01/01/20 19:45 03/31/20 19:44 Famotidine (Pepcid I.v.) 20 mg Q12HR IVP 01/01/20 21:00 01/31/20 20:59 01/03/20 20:41 Fentanyl Citrate 2500 mcg/Sodium Chloride 250 ml @ 0 mls/hr Q24H IV 01/02/20 10:20 01/09/20 10:19 01/04/20 03:28 Haloperidol Lactate 5 mg/ Dextrose 56 ml @ 224 mls/hr Q6H PRN IVPB Agitation 01/03/20 10:00 02/17/20 09:59 01/03/20 22:03 Heparin Sodium (Porcine) (Heparin 5000 units/ml) 5,000 units EVERY 12 HOURS SUBQ 01/01/20 21:00 02/15/20 20:59 01/03/20 20:42 Heparin Sodium/ Sodium Chloride (Heparin 1000 units/500ml Premix) 1,000 unit ONCE PRN IV PICC PLACEMENT 01/02/20 18:58 01/04/20 18:57 Heparin Sodium/ Sodium Chloride (Heparin 1000 units/500ml Premix) 1,000 unit ONCE PRN IV PICC 01/03/20 17:15 01/04/20 23:59 Lidocaine HCl (Xylocaine 1% 30ml) 30 ml ONCE PRN INJ PICC PLACEMENT 01/02/20 18:58 01/04/20 18:57 Lidocaine HCl (Xylocaine 1% 30ml) 30 ml ONCE PRN INJ PICC 01/03/20 17:19 01/04/20 23:59 Methylprednisolone Sodium Succinate (Solu-MEDROL) 40 mg EVERY 8 HOURS IVP 01/02/20 14:00 04/01/20 13:59 01/04/20 05:14 Nitroglycerin (Ntg) 0.4 mg Q5M PRN SL Prn Chest Pain 01/01/20 19:45 01/31/20 19:44 Ondansetron HCl (Zofran) 4 mg Q6H PRN IVP Nausea & Vomiting 01/01/20 19:45 01/31/20 19:44 Polyethylene Glycol (Miralax) 17 gm DAILYPRN PRN ORAL Constipation 01/01/20 19:45 01/31/20 19:44 Propofol 100 ml @ 0 mls/hr Q24H IV 01/03/20 07:30 01/05/20 07:29 01/04/20 06:14 Sodium Chloride 1,000 ml @ 125 mls/hr Q8H IV 01/03/20 17:12 02/02/20 17:11 01/03/20 22:05 Vancomycin HCl (Vanco rx to dose) 1 ea DAILY PRN MISC Per rx protocol 01/03/20 18:15 02/02/20 18:14 Vancomycin/Sodium Chloride 275 ml @ 183.333 mls/hr Q12HR@0600,1800 IVPB 01/04/20 06:00 01/09/20 05:59 01/04/20 05:00 Hardik Medina MD Jan 04, 2020 08:56
[2020-01-04] MEDS: Heparin 5000 units/ml inj SUBQ SCH ×2 (08:57→21:20)
[2020-01-04] MEDS: Haloperidol Lactate 5 MG in D5W 55 ML IVPB PRN (10:52)
--- NOTE | 2020-01-04 11:43 | Consultation ---
History of Present Illness General Date patient seen: Jan 04, 2020 Reason for Hospitalization: Overdose Present Illness HPI This is a 89-ivxx-hio-year-old male with multiple medical comorbidities who [facility] identified to be septic leukocytosis fever tachycardia abnormal labs likely overdose. Patient intubated admitted to the intensive care unit for further care and management. Surgery called to evaluate and assist with care. Patient significantly agitated on high-dose fentanyl and propofol drip ill-appearing. Leukocytosis 30 ,000 trending down. Lactic acidosis, abnormal labs. Unable to obtain history from patient. EMR and chart reviewed. Allergies: Coded Allergies: UNABLE TO ASSESS (Unverified , 01/01/20) COVID-19 Screening Contact w/high risk pt: Yes Recent Travel to affected area: No Experienced COVID-19 symptoms?: Yes COVID-19 symptoms experienced: Shortness of Breath Medication History Scheduled Baclofen* (Baclofen*), 10 MG ORAL Q6HR, (Reported) Budesonide/Formoterol Fumarate (Symbicort 160-4.5 Mcg Inhaler), 2 PUFF IH BID, ( Reported) Cholecalciferol (Vitamin D3) (Vitamin D3), 2,000 UNIT MC DAILY, (Reported) Diltiazem Hcl* (Cartia Xt*), 180 MG ORAL BID, (Reported) Folic Acid (Folic Acid), 1 MG ORAL DAILY, (Reported) Furosemide* (Lasix*), 40 MG ORAL DAILY, (Reported) Ipratropium/Albuterol Sulfate (Combivent Respimat Inhal [place]), 20-100 MCG IH FOUR TIMES A DAY, (Reported) Methylprednisolone (Methylprednisolone*), 4 MG ORAL DIRECTED, (Reported) Omeprazole (Omeprazole), 40 MG ORAL DAILY, (Reported) Potassium Chloride (Potassium Chloride), 20 MEQ ORAL TWICE A DAY, (Reported) Tamsulosin HCl (Flomax), 0.8 MG ORAL BEDTIME, (Reported) Scheduled PRN Albuterol Sulfate* (Proair Hfa*), 2 PUFFS INH Q4HR PRN for Bronchospasm, ( Reported) Ondansetron* (Zofran*), 4 MG ORAL Q4HR PRN for Nausea & Vomiting, (Reported) Patient History Limited by: medical condition History Provided By: Medical Record, PMD Healthcare decision maker self Resuscitation status Full Code Advanced Directive on File No Past Medical/Surgical History Past Medical/Surgical History: (1) COPD (chronic obstructive pulmonary disease) (2) Hyperkalemia (3) Respiratory failure (4) Rhabdomyolysis (5) Elevated liver enzymes (6) LUDMILA (acute kidney injury) (7) Suspected COVID-19 virus infection Review of Systems Review of Symptoms General ROS: no weight loss or fever Psychological ROS: no depression or mood changes, no memory loss Ophthalmic ROS: no visual changes or eye irritation ENT ROS: no nasal congestion, hearing loss, dizziness Allergy and Immunology ROS: no allergic symptoms or urticaria Hematological and Lymphatic ROS: no swollen glands, unusual bleeding or bruising Endocrine ROS: no polyuria, polydipsia, weight changes, temperature intolerance Respiratory ROS: no cough, shortness of breath, or wheezing Cardiovascular ROS: no chest pain or dyspnea on exertion Gastrointestinal ROS: denies abdominal pain, bright red blood in stool. Musculoskeletal ROS: no myalgias or arthralgias Neurological ROS: no TIA or stroke symptoms Dermatological ROS: no new or changing skin lesions, rashes or pruritis Unable to obtain given patient's current medical condition Physical Exam Physical Exam General appearance: Ill-appearing in ICU on vent support Head: Normocephalic, without obvious abnormality, atraumatic Eyes: conjunctivae/corneas clear. PERRL, EOM's intact. Fundi benign Throat: Lips, mucosa, and tongue normal. Teeth and gums normal Neck: supple, symmetrical, trachea midline, no adenopathy, thyroid: not enlarged, symmetric, no tenderness/mass/nodules, no carotid bruit and no JVD Lungs: On vent support Heart: regular rate and rhythm, S1, S2 normal, no murmur, click, rub or gallop Abdomen: soft, non-tender. Bowel sounds normal. No masses, no organomegaly Extremities: extremities normal, atraumatic, no cyanosis or edema Pulses: 2+ and symmetric Skin: Skin color, texture, turgor normal. No rashes or lesions Neurologic: Grossly normal Last 24 Hour Vital Signs Date Time Temp Pulse Resp B/P (MAP) Pulse Ox O2 Delivery O2 Flow Rate FiO2 01/04/20 11:11 110 18 60 01/04/20 09:08 21 111/78 Mechanical Ventilator 70 01/04/20 08:45 105 19 60 01/04/20 07:05 101 23 60 01/04/20 06:30 116 18 01/04/20 06:30 110 18 01/04/20 06:14 18 133/104 Mechanical Ventilator 70 01/04/20 06:00 22 135/85 Mechanical Ventilator 70 01/04/20 06:00 15 Mechanical Ventilator 70 01/04/20 05:45 116 16 135/85 (102) 01/04/20 05:30 115 17 167/129 (142) 01/04/20 05:28 115 18 60 01/04/20 05:15 124 11 157/88 (111) 01/04/20 05:00 17 204/104 Mechanical Ventilator 70.0 01/04/20 05:00 17 Mechanical Ventilator 70 01/04/20 05:00 127 22 192/98 (129) 01/04/20 04:45 126 24 202/136 (158) 01/04/20 04:30 121 21 179/130 (146) 96 01/04/20 04:15 118 16 169/114 (132) 98 01/04/20 04:00 98.8 114 16 150/90 (110) 96 01/04/20 04:00 Mechanical Ventilator 01/04/20 04:00 122 01/04/20 04:00 22 169/114 Mechanical Ventilator 70 01/04/20 04:00 22 Mechanical Ventilator 70 01/04/20 04:00 70 01/04/20 03:45 111 15 134/86 (102) 95 01/04/20 03:30 105 18 105/76 (86) 98 01/04/20 03:28 18 Mechanical Ventilator 70 01/04/20 03:15 105 17 102/77 (85) 96 01/04/20 03:03 106 18 60 01/04/20 03:00 106 18 103/72 (82) 100 01/04/20 03:00 106 18 103/72 (82) 01/04/20 02:54 17 111/87 70 01/04/20 02:45 104 18 111/87 (95) 98 01/04/20 02:30 104 18 108/70 (83) 98 01/04/20 02:15 105 18 110/68 (82) 100 01/04/20 02:00 105 18 107/74 (85) 98 01/04/20 01:50 106 18 103/75 (84) 100 01/04/20 01:45 105 18 108/75 (86) 98 01/04/20 01:30 106 18 103/74 (84) 98 01/04/20 01:21 107 18 60 01/04/20 01:18 18 106/69 Mechanical Ventilator 70 01/04/20 01:18 18 103/75 Mechanical Ventilator 70 01/04/20 01:15 107 18 106/69 (81) 98 01/04/20 01:03 18 103/74 Mechanical Ventilator 70 01/04/20 01:00 108 18 106/69 (81) 98 01/04/20 01:00 26 Mechanical Ventilator 70 01/04/20 00:48 18 106/69 Mechanical Ventilator 70 01/04/20 00:45 109 18 110/67 (81) 98 01/04/20 00:33 18 113/67 Mechanical Ventilator 70 01/04/20 00:30 99.0 110 18 113/67 (82) 98 01/04/20 00:18 18 110/67 Mechanical Ventilator 70 01/04/20 00:15 110 18 104/67 (79) 01/04/20 00:13 110 18 101/74 (83) 01/04/20 00:00 60 01/04/20 00:00 Mechanical Ventilator 01/04/20 00:00 123 01/04/20 00:00 18 101/74 Mechanical Ventilator 70 01/04/20 00:00 113 18 100/68 (79) 01/03/20 23:48 18 93/62 Mechanical Ventilator 95 01/03/20 23:45 115 18 103/69 (80) 01/03/20 23:43 116 18 93/62 (72) 01/03/20 23:33 18 101/74 Mechanical Ventilator 70 01/03/20 23:30 125 18 127/109 (115) 96 01/03/20 23:30 114 18 60 01/03/20 23:18 18 113/67 Mechanical Ventilator 70 01/03/20 23:15 126 23 139/117 (124) 98 01/03/20 23:03 18 101/74 Mechanical Ventilator 70 01/03/20 23:00 125 28 159/139 (146) 96 01/03/20 23:00 30 Mechanical Ventilator 70 01/03/20 22:51 126 20 149/89 (109) 96 01/03/20 22:48 23 139/117 Mechanical Ventilator 70 01/03/20 22:45 127 29 97 01/03/20 22:33 30 96/76 70 01/03/20 22:30 133 34 131/80 (97) 95 01/03/20 22:15 127 26 96/73 (81) 97 01/03/20 22:00 131 32 141/86 (104) 96 01/03/20 22:00 26 Mechanical Ventilator 01/03/20 21:45 131 30 126/78 (94) 96 01/03/20 21:30 130 34 138/87 (104) 97 01/03/20 21:15 132 35 145/130 (135) 97 01/03/20 21:14 133 35 60 01/03/20 21:00 131 37 134/82 (99) 97 01/03/20 21:00 24 Mechanical Ventilator 70 01/03/20 20:45 124 23 161/73 (102) 97 01/03/20 20:30 129 35 195/102 (133) 96 01/03/20 20:24 19 Mechanical Ventilator 70 01/03/20 20:15 127 34 149/107 (121) 97 01/03/20 20:00 Mechanical Ventilator 01/03/20 20:00 98.8 130 36 158/123 (135) 96 01/03/20 20:00 60 01/03/20 20:00 123 01/03/20 19:45 128 30 168/144 (152) 96 01/03/20 19:40 130 23 60 01/03/20 19:30 126 25 150/93 (112) 95 01/03/20 19:15 131 44 188/93 (124) 93 01/03/20 19:00 127 31 150/90 (110) 94 01/03/20 18:00 26 Mechanical Ventilator 60 01/03/20 18:00 99.8 130 31 160/104 (122) 95 01/03/20 17:30 127 27 167/92 (117) 94 01/03/20 17:06 28 Mechanical Ventilator 60 01/03/20 17:00 30 Mechanical Ventilator 60 01/03/20 17:00 122 23 116/71 (86) 98 01/03/20 16:58 128 33 60 01/03/20 16:52 123 01/03/20 16:30 123 31 137/89 (105) 95 01/03/20 16:00 126 34 137/89 (105) 94 01/03/20 16:00 27 Mechanical Ventilator 60 01/03/20 16:00 60 01/03/20 16:00 Mechanical Ventilator 01/03/20 15:30 100.2 123 29 137/27 (63) 95 01/03/20 15:00 120 41 133/27 (62) 95 01/03/20 15:00 28 Mechanical Ventilator 60 01/03/20 14:53 126 39 60 01/03/20 14:45 124 27 187/103 (131) 95 01/03/20 14:30 125 28 169/107 (127) 95 01/03/20 14:15 123 25 174/102 (126) 95 01/03/20 14:00 26 Mechanical Ventilator 60 01/03/20 14:00 123 26 149/97 (114) 95 01/03/20 13:45 113 18 191/106 (134) 95 01/03/20 13:30 113 20 191/106 (134) 94 01/03/20 13:18 123 28 60 01/03/20 13:15 120 21 173/100 (124) 94 01/03/20 13:00 22 Mechanical Ventilator 60 01/03/20 13:00 130 22 181/104 (129) 92 01/03/20 12:45 100.0 123 26 170/114 (132) 94 01/03/20 12:30 116 19 150/86 (107) 96 01/03/20 12:15 114 18 148/95 (112) 97 01/03/20 12:00 Mechanical Ventilator 01/03/20 12:00 20 Mechanical Ventilator 60 01/03/20 12:00 110 17 160/94 (116) 100 01/03/20 11:45 109 18 152/80 (104) 100 Intake and Output 01/03/20 01/04/20 19:00 07:00 Intake Total 1353.333 ml 1521.801 ml Output Total 1460 ml 940 ml Balance -106.667 ml 581.801 ml IV Total 1353.333 ml 1521.801 ml Output Urine Total 1440 ml 940 ml Emesis 20 ml Laboratory Tests Test 01/04/20 04:30 White Blood Count 23.4 K/UL (4.8-10.8) *H Red Blood Count 3.98 M/UL (4.70-6.10) L Hemoglobin 13.2 G/DL (14.2-18.0) L Hematocrit 38.9 % (42.0-52.0) L Mean Corpuscular Volume 98 FL (80-99) Mean Corpuscular Hemoglobin 33.2 PG (27.0-31.0) H Mean Corpuscular Hemoglobin Concent 34.0 G/DL (32.0-36.0) Red Cell Distribution Width 12.7 % (11.6-14.8) Platelet Count 157 K/UL (150-450) Mean Platelet Volume 5.7 FL (6.5-10.1) L Neutrophils (%) (Auto) % (45.0-75.0) Lymphocytes (%) (Auto) % (20.0-45.0) Monocytes (%) (Auto) % (1.0-10.0) Eosinophils (%) (Auto) % (0.0-3.0) Basophils (%) (Auto) % (0.0-2.0) Differential Total Cells Counted 100 Neutrophils % (Manual) 86 % (45-75) H Lymphocytes % (Manual) 5 % (20-45) L Monocytes % (Manual) 9 % (1-10) Eosinophils % (Manual) 0 % (0-3) Basophils % (Manual) 0 % (0-2) Band Neutrophils 0 % (0-8) Nucleated Red Blood Cells 2 /100 WBC Platelet Estimate Adequate Platelet Morphology Normal Red Blood Cell Morphology Normal Sodium Level 136 MMOL/L (136-145) Potassium Level 4.8 MMOL/L (3.5-5.1) Chloride Level 101 MMOL/L (98-107) Carbon Dioxide Level 26 MMOL/L (21-32) Anion Gap 9 mmol/L (5-15) Blood Urea Nitrogen 21 mg/dL (7-18) H Creatinine 0.9 MG/DL (0.55-1.30) Estimat Glomerular Filtration Rate > 60 mL/min (>60) Glucose Level 114 MG/DL (74-106) H Calcium Level 8.4 MG/DL (8.5-10.1) L Phosphorus Level 2.3 MG/DL (2.5-4.9) L Magnesium Level 2.3 MG/DL (1.8-2.4) Total Bilirubin 0.7 MG/DL (0.2-1.0) Aspartate Amino Transf (AST/SGOT) 60 U/L (15-37) H Alanine Aminotransferase (ALT/SGPT) 46 U/L (12-78) Alkaline Phosphatase 62 U/L (46-116) Total Protein 6.6 G/DL (6.4-8.2) Albumin 2.9 G/DL (3.4-5.0) L Globulin 3.7 g/dL Albumin/Globulin Ratio 0.8 (1.0-2.7) L Height (Feet): 5 Height (Inches): 8.00 Weight (Pounds): 203 Medications Current Medications Medications (Trade) Dose Ordered Sig/Samia Route PRN Reason Start Time Stop Time Status Last Admin Dose Admin Acetaminophen (Tylenol) 650 mg Q4H PRN ORAL fever 01/01/20 19:45 01/31/20 19:44 01/02/20 17:51 Acetaminophen (Tylenol) 650 mg Q4H PRN ORAL Mild Pain (Pain Scale 1-3) 01/01/20 19:45 01/31/20 19:44 Acetaminophen (Tylenol) 650 mg Q4H PRN RECTAL Mild Pain (Pain Scale 1-3) 01/01/20 19:45 01/31/20 19:44 Acetaminophen (Tylenol) 650 mg Q4H PRN RECTAL fever 01/01/20 19:45 01/31/20 19:44 Azithromycin 500 mg/Dextrose 275 ml @ 275 mls/hr Q24H IV 01/01/20 21:00 01/06/20 20:59 01/03/20 20:22 Ceftriaxone Sodium 1 gm/ Dextrose 55 ml @ 110 mls/hr Q24H IV 01/01/20 22:00 01/08/20 21:59 01/03/20 22:01 Chlorhexidine Gluconate (Bhavana-Hex 2%) 1 applic DAILY@2000 TOPIC 01/02/20 20:00 04/01/20 19:59 01/03/20 20:21 Dextrose (Dextrose 50%) 25 ml Q30M PRN IV Hypoglycemia 01/01/20 19:45 03/31/20 19:44 Dextrose (Dextrose 50%) 50 ml Q30M PRN IV Hypoglycemia 01/01/20 19:45 03/31/20 19:44 Famotidine (Pepcid I.v.) 20 mg Q12HR IVP 01/01/20 21:00 01/31/20 20:59 01/04/20 08:57 Fentanyl Citrate 2500 mcg/Sodium Chloride 250 ml @ 0 mls/hr Q24H IV 01/02/20 10:20 01/09/20 10:19 01/04/20 03:28 Haloperidol Lactate 5 mg/ Dextrose 56 ml @ 224 mls/hr Q6H PRN IVPB Agitation 01/03/20 10:00 02/17/20 09:59 01/04/20 10:52 Heparin Sodium (Porcine) (Heparin 5000 units/ml) 5,000 units EVERY 12 HOURS SUBQ 01/01/20 21:00 02/15/20 20:59 01/03/20 20:42 Heparin Sodium/ Sodium Chloride (Heparin 1000 units/500ml Premix) 1,000 unit ONCE PRN IV PICC PLACEMENT 01/02/20 18:58 01/04/20 18:57 Heparin Sodium/ Sodium Chloride (Heparin 1000 units/500ml Premix) 1,000 unit ONCE PRN IV PICC 01/03/20 17:15 01/04/20 23:59 Lidocaine HCl (Xylocaine 1% 30ml) 30 ml ONCE PRN INJ PICC PLACEMENT 01/02/20 18:58 01/04/20 18:57 Lidocaine HCl (Xylocaine 1% 30ml) 30 ml ONCE PRN INJ PICC 01/03/20 17:19 01/04/20 23:59 Methylprednisolone Sodium Succinate (Solu-MEDROL) 40 mg EVERY 8 HOURS IVP 01/02/20 14:00 04/01/20 13:59 01/04/20 05:14 Midazolam HCl 100 ml @ 0 mls/hr Q24H PRN IV Agitation 01/04/20 11:20 01/11/20 11:19 Nitroglycerin (Ntg) 0.4 mg Q5M PRN SL Prn Chest Pain 01/01/20 19:45 01/31/20 19:44 Ondansetron HCl (Zofran) 4 mg Q6H PRN IVP Nausea & Vomiting 01/01/20 19:45 01/31/20 19:44 Polyethylene Glycol (Miralax) 17 gm DAILYPRN PRN ORAL Constipation 01/01/20 19:45 01/31/20 19:44 Sodium Chloride 1,000 ml @ 125 mls/hr Q8H IV 01/03/20 17:12 02/02/20 17:11 01/04/20 08:57 Vancomycin HCl (Vanco rx to dose) 1 ea DAILY PRN MISC Per rx protocol 01/03/20 18:15 02/02/20 18:14 Vancomycin/Sodium Chloride 275 ml @ 183.333 mls/hr Q12HR@0600,1800 IVPB 01/04/20 06:00 01/09/20 05:59 01/04/20 05:00 Assessment/Plan Problem List: (1) COPD (chronic obstructive pulmonary disease) Assessment & Plan: As per pulmonology Continue vent support ICD Codes: J44.9 - Chronic obstructive pulmonary disease, unspecified SNOMED: 70906184 (2) Hyperkalemia ICD Codes: E87.5 - Hyperkalemia SNOMED: 18950870 (3) Respiratory failure Assessment & Plan: Intubated intensive care unit on vent support Unable to be weaned at this time Chest x-ray noted Sedation ICD Codes: J96.90 - Respiratory failure, unspecified, unspecified whether with hypoxia or hypercapnia SNOMED: 299307503 (4) Rhabdomyolysis Assessment & Plan: IV fluid hydration Trend labs Improving ICD Codes: M62.82 - Rhabdomyolysis SNOMED: 796119013 (5) Elevated liver enzymes Assessment & Plan: Likely related to hypotension expressiveness originally. Improving with resuscitation. Likely shock. Hold on ultrasound tentatively Labs improving ICD Codes: R74.8 - Abnormal levels of other serum enzymes SNOMED: 201094139 (6) LUDMILA (acute kidney injury) ICD Codes: N17.9 - Acute kidney failure, unspecified SNOMED: 0986332, 12101663 (7) Suspected COVID-19 virus infection Assessment & Plan: Continues to be ill appearing Pending swabs results initially PICC line placed and patient receiving medications through this but patient was able to pull through his restraints and with movement PICC line was dislodged patient unable to receive sedation medications and requiring urgent central venous catheter insertion. ICD Codes: R68.89 - Other general symptoms and signs SNOMED: 347715635 Yousif Bates Jan 04, 2020 11:43
--- NOTE | 2020-01-04 11:44 | Operative Note - PDOC ---
Operative Note Operative Note Date of Operation/Procedure: Jan 04, 2020 Pre-op Diagnosis: Leukocytosis, fever, lactic acidosis, sepsis Respiratory insufficiency on ventilatory support Procedure: Left femoral triple-lumen venous central catheter insertion Post-op Diagnosis: same as pre-op Surgeon: Yousif Bates Anesthesia: local Specimen: none Complications: none Fluids: none Estimated Blood Loss: minimal Implant(s) used?: No Indications for Procedure Initially PICC line placed and patient receiving medications through this but patient was able to pull through his restraints and with movement PICC line was dislodged patient unable to receive sedation medications and requiring urgent central venous catheter insertion. Description of Procedure With assistance of nursing staff patient was made comfortable at the bedside in the supine position. The left groin was prepped draped in the same surgical fashion. Left femoral vein was cannulated on first stick and good venous blood noted. Guidewire pressed over the needle needle removed. Small skin incision was made and dilator was used and tract was dilated. Following this the triple- lumen catheter was inserted over the guidewire and guidewire was discarded. Triple-lumen catheter was sutured in place all 3 ports flushed and aspirated appropriately. Dressings were applied. Patient taught procedure well. Initiation of Ayo immediate medications through the line was made. Discarded malposition pulled PICC line Yousif Bates Jan 04, 2020 11:44
[2020-01-04] MEDS: Versed 50mg/D5W 100ml 100 ML IV PRN ×4 (12:51→21:49)
--- NOTE | 2020-01-04 13:48 | General Progress Note ---
Assessment/Plan Problem List: (1) Rhabdomyolysis ICD Codes: M62.82 - Rhabdomyolysis SNOMED: 107078703 (2) Elevated liver enzymes ICD Codes: R74.8 - Abnormal levels of other serum enzymes SNOMED: 975995998 (3) Hyperkalemia ICD Codes: E87.5 - Hyperkalemia SNOMED: 25361446 (4) LUDMILA (acute kidney injury) ICD Codes: N17.9 - Acute kidney failure, unspecified SNOMED: 3035851, 12984405 (5) Suspected COVID-19 virus infection ICD Codes: R68.89 - Other general symptoms and signs SNOMED: 929168741 (6) COPD (chronic obstructive pulmonary disease) ICD Codes: J44.9 - Chronic obstructive pulmonary disease, unspecified SNOMED: 40279819 (7) Respiratory failure ICD Codes: J96.90 - Respiratory failure, unspecified, unspecified whether with hypoxia or hypercapnia SNOMED: 163474895 (8) Drug abuse ICD Codes: F19.10 - Other psychoactive substance abuse, uncomplicated SNOMED: 02780655 (9) Staphylococcal septicemia ICD Codes: A41.2 - Sepsis due to unspecified staphylococcus SNOMED: 21064617, [id number] Assessment/Plan: He needs more sedation, , picc as poor access,pulled out , now fem cath for access + hydration , ludmila and K improving, Staph sepsis Vent care, icu orders reviewed and updated, icu time 40min Subjective ROS Limited/Unobtainable: Yes Allergies: Coded Allergies: UNABLE TO ASSESS (Unverified , 01/01/20) Subjective on vent, agitated, 70% FIO2 Objective Last 24 Hour Vital Signs Date Time Temp Pulse Resp B/P (MAP) Pulse Ox O2 Delivery O2 Flow Rate FiO2 01/04/20 12:51 18 Mechanical Ventilator 60 01/04/20 12:51 18 Mechanical Ventilator 60 01/04/20 12:00 18 127/81 Mechanical Ventilator 60 01/04/20 12:00 18 Mechanical Ventilator 60 01/04/20 11:30 107 18 148/88 (108) 100 01/04/20 11:15 116 17 187/95 (125) 100 01/04/20 11:11 110 18 60 01/04/20 11:00 18 187/95 Mechanical Ventilator 60 01/04/20 11:00 21 Mechanical Ventilator 60 01/04/20 11:00 113 13 121/102 (108) 100 01/04/20 10:45 120 19 144/107 (119) 99 01/04/20 10:30 115 20 179/87 (117) 100 01/04/20 10:15 116 15 173/107 (129) 99 01/04/20 10:00 18 169/75 Mechanical Ventilator 60 01/04/20 10:00 21 Mechanical Ventilator 60 01/04/20 10:00 106 16 169/75 (106) 100 01/04/20 09:45 113 14 151/86 (107) 79 01/04/20 09:30 21 Mechanical Ventilator 70 01/04/20 09:30 107 17 144/95 (111) 01/04/20 09:15 20 Mechanical Ventilator 70 01/04/20 09:15 107 17 144/95 (111) 01/04/20 09:08 21 111/78 Mechanical Ventilator 70 01/04/20 09:00 20 Mechanical Ventilator 70 01/04/20 09:00 99.1 107 17 144/95 (111) 01/04/20 08:45 113 15 144/95 (111) 01/04/20 08:45 105 19 60 01/04/20 08:30 109 18 135/85 (102) 01/04/20 08:15 110 14 135/85 (102) 01/04/20 08:00 107 18 135/85 (102) 01/04/20 08:00 20 111/78 Mechanical Ventilator 70 01/04/20 08:00 20 Mechanical Ventilator 70 01/04/20 07:45 116 11 135/85 (102) 01/04/20 07:30 111 17 135/85 (102) 01/04/20 07:15 116 14 135/85 (102) 01/04/20 07:05 101 23 60 01/04/20 07:00 21 111/78 Mechanical Ventilator 70 01/04/20 07:00 20 Mechanical Ventilator 70 01/04/20 07:00 109 18 135/85 (102) 01/04/20 06:30 116 18 01/04/20 06:30 110 18 01/04/20 06:14 18 133/104 Mechanical Ventilator 70 01/04/20 06:00 22 135/85 Mechanical Ventilator 70 01/04/20 06:00 15 Mechanical Ventilator 70 01/04/20 05:45 116 16 135/85 (102) 01/04/20 05:30 115 17 167/129 (142) 01/04/20 05:28 115 18 60 01/04/20 05:15 124 11 157/88 (111) 01/04/20 05:00 17 204/104 Mechanical Ventilator 70.0 01/04/20 05:00 17 Mechanical Ventilator 70 01/04/20 05:00 127 22 192/98 (129) 01/04/20 04:45 126 24 202/136 (158) 01/04/20 04:30 121 21 179/130 (146) 96 01/04/20 04:15 118 16 169/114 (132) 98 01/04/20 04:00 98.8 114 16 150/90 (110) 96 01/04/20 04:00 Mechanical Ventilator 01/04/20 04:00 122 01/04/20 04:00 22 169/114 Mechanical Ventilator 70 01/04/20 04:00 22 Mechanical Ventilator 70 01/04/20 04:00 70 01/04/20 03:45 111 15 134/86 (102) 95 01/04/20 03:30 105 18 105/76 (86) 98 01/04/20 03:28 18 Mechanical Ventilator 70 01/04/20 03:15 105 17 102/77 (85) 96 01/04/20 03:03 106 18 60 01/04/20 03:00 106 18 103/72 (82) 100 01/04/20 03:00 106 18 103/72 (82) 01/04/20 02:54 17 111/87 70 01/04/20 02:45 104 18 111/87 (95) 98 01/04/20 02:30 104 18 108/70 (83) 98 01/04/20 02:15 105 18 110/68 (82) 100 01/04/20 02:00 105 18 107/74 (85) 98 01/04/20 01:50 106 18 103/75 (84) 100 01/04/20 01:45 105 18 108/75 (86) 98 01/04/20 01:30 106 18 103/74 (84) 98 01/04/20 01:21 107 18 60 01/04/20 01:18 18 106/69 Mechanical Ventilator 70 01/04/20 01:18 18 103/75 Mechanical Ventilator 70 01/04/20 01:15 107 18 106/69 (81) 98 01/04/20 01:03 18 103/74 Mechanical Ventilator 70 01/04/20 01:00 108 18 106/69 (81) 98 01/04/20 01:00 26 Mechanical Ventilator 70 01/04/20 00:48 18 106/69 Mechanical Ventilator 70 01/04/20 00:45 109 18 110/67 (81) 98 01/04/20 00:33 18 113/67 Mechanical Ventilator 70 01/04/20 00:30 99.0 110 18 113/67 (82) 98 01/04/20 00:18 18 110/67 Mechanical Ventilator 70 01/04/20 00:15 110 18 104/67 (79) 01/04/20 00:13 110 18 101/74 (83) 01/04/20 00:00 60 01/04/20 00:00 Mechanical Ventilator 01/04/20 00:00 123 01/04/20 00:00 18 101/74 Mechanical Ventilator 70 01/04/20 00:00 113 18 100/68 (79) 01/03/20 23:48 18 93/62 Mechanical Ventilator 95 01/03/20 23:45 115 18 103/69 (80) 01/03/20 23:43 116 18 93/62 (72) 01/03/20 23:33 18 101/74 Mechanical Ventilator 70 01/03/20 23:30 125 18 127/109 (115) 96 01/03/20 23:30 114 18 60 01/03/20 23:18 18 113/67 Mechanical Ventilator 70 01/03/20 23:15 126 23 139/117 (124) 98 01/03/20 23:03 18 101/74 Mechanical Ventilator 70 01/03/20 23:00 125 28 159/139 (146) 96 01/03/20 23:00 30 Mechanical Ventilator 70 01/03/20 22:51 126 20 149/89 (109) 96 01/03/20 22:48 23 139/117 Mechanical Ventilator 70 01/03/20 22:45 127 29 97 01/03/20 22:33 30 96/76 70 01/03/20 22:30 133 34 131/80 (97) 95 01/03/20 22:15 127 26 96/73 (81) 97 01/03/20 22:00 131 32 141/86 (104) 96 01/03/20 22:00 26 Mechanical Ventilator 01/03/20 21:45 131 30 126/78 (94) 96 01/03/20 21:30 130 34 138/87 (104) 97 01/03/20 21:15 132 35 145/130 (135) 97 01/03/20 21:14 133 35 60 01/03/20 21:00 131 37 134/82 (99) 97 01/03/20 21:00 24 Mechanical Ventilator 70 01/03/20 20:45 124 23 161/73 (102) 97 01/03/20 20:30 129 35 195/102 (133) 96 01/03/20 20:24 19 Mechanical Ventilator 70 01/03/20 20:15 127 34 149/107 (121) 97 01/03/20 20:00 Mechanical Ventilator 01/03/20 20:00 98.8 130 36 158/123 (135) 96 01/03/20 20:00 60 01/03/20 20:00 123 01/03/20 19:45 128 30 168/144 (152) 96 01/03/20 19:40 130 23 60 01/03/20 19:30 126 25 150/93 (112) 95 01/03/20 19:15 131 44 188/93 (124) 93 01/03/20 19:00 127 31 150/90 (110) 94 01/03/20 18:00 26 Mechanical Ventilator 60 01/03/20 18:00 99.8 130 31 160/104 (122) 95 01/03/20 17:30 127 27 167/92 (117) 94 01/03/20 17:06 28 Mechanical Ventilator 60 01/03/20 17:00 30 Mechanical Ventilator 60 01/03/20 17:00 122 23 116/71 (86) 98 01/03/20 16:58 128 33 60 01/03/20 16:52 123 01/03/20 16:30 123 31 137/89 (105) 95 01/03/20 16:00 126 34 137/89 (105) 94 01/03/20 16:00 27 Mechanical Ventilator 60 01/03/20 16:00 60 01/03/20 16:00 Mechanical Ventilator 01/03/20 15:30 100.2 123 29 137/27 (63) 95 01/03/20 15:00 120 41 133/27 (62) 95 01/03/20 15:00 28 Mechanical Ventilator 60 01/03/20 14:53 126 39 60 01/03/20 14:45 124 27 187/103 (131) 95 01/03/20 14:30 125 28 169/107 (127) 95 01/03/20 14:15 123 25 174/102 (126) 95 01/03/20 14:00 26 Mechanical Ventilator 60 01/03/20 14:00 123 26 149/97 (114) 95 Intake and Output 01/03/20 01/04/20 19:00 07:00 Intake Total 1353.333 ml 1569.068 ml Output Total 1460 ml 940 ml Balance -106.667 ml 629.068 ml IV Total 1353.333 ml 1569.068 ml Output Urine Total 1440 ml 940 ml Emesis 20 ml Laboratory Tests 01/04/20 04:30: White Blood Count 23.4*H, Red Blood Count 3.98L, Hemoglobin 13.2L, Hematocrit 38.9L, Mean Corpuscular Volume 98, Mean Corpuscular Hemoglobin 33.2H, Mean Corpuscular Hemoglobin Concent 34.0, Red Cell Distribution Width 12.7, Platelet Count 157, Mean Platelet Volume 5.7L, Neutrophils (%) (Auto) , Lymphocytes (%) ( Auto) , Monocytes (%) (Auto) , Eosinophils (%) (Auto) , Basophils (%) (Auto) , Differential Total Cells Counted 100, Neutrophils % (Manual) 86H, Lymphocytes % (Manual) 5L, Monocytes % (Manual) 9, Eosinophils % (Manual) 0, Basophils % ( Manual) 0, Band Neutrophils 0, Nucleated Red Blood Cells 2, Platelet Estimate Adequate, Platelet Morphology Normal, Red Blood Cell Morphology Normal, Sodium Level 136, Potassium Level 4.8, Chloride Level 101, Carbon Dioxide Level 26, Anion Gap 9, Blood Urea Nitrogen 21H, Creatinine 0.9, Estimat Glomerular Filtration Rate > 60, Glucose Level 114H, Calcium Level 8.4L, Phosphorus Level 2.3L, Magnesium Level 2.3, Total Bilirubin 0.7, Aspartate Amino Transf (AST/SGOT ) 60H, Alanine Aminotransferase (ALT/SGPT) 46, Alkaline Phosphatase 62, Total Protein 6.6, Albumin 2.9L, Globulin 3.7, Albumin/Globulin Ratio 0.8L Height (Feet): 5 Height (Inches): 8.00 Weight (Pounds): 203 General Appearance: mild distress EENT: normal ENT inspection Neck: normal alignment Cardiovascular: regular rhythm Respiratory/Chest: rhonchi - bilaterally Abdomen: non tender, soft Edema: no edema noted Arm (L), no edema noted Arm (R), no edema noted Leg (L), no edema noted Leg (R), no edema noted Pedal (L), no edema noted Pedal (R), no edema noted Generalized Edema: other - no edema Francois Dickey MD Jan 04, 2020 13:48
[2020-01-04] MEDS: Dyna-Hex 2% Top Sol 2oz TOPIC SCH (21:16)
[2020-01-04] MEDS: Azithromycin 500 MG in D5W 275 ML IV SCH (21:16)
[2020-01-04] MEDS: cefTRIAXone 1 GM in D5W 55 ML IV SCH (22:00)
[2020-01-05] VITALS (52 sets, daily range): BP systolic 115–244; BP diastolic 74–156
[2020-01-05] MEDS: Versed 50mg/D5W 100ml 100 ML IV PRN ×6 (00:46→21:32)
[2020-01-05 05:41] LABS: BASOPHILS % (AUTO) 1.5 % (0.0-2.0); HEMATOCRIT 37.3 % (42.0-52.0); HEMOGLOBIN 12.7 G/DL (14.2-18.0); LYMPHOCYTES % (AUTO) 6.3 % (20.0-45.0); MEAN CORPUSCULAR VOLUME 97 FL (80-99); NEUTROPHILS % (AUTO) 82.1 % (45.0-75.0); PLATELET COUNT 156 K/UL (150-450); RED BLOOD COUNT 3.83 M/UL (4.70-6.10); RED CELL DISTRIBUTION WIDTH 12.3 % (11.6-14.8); WHITE BLOOD COUNT 13.2 K/UL (4.8-10.8)
[2020-01-05 06:00] LABS: ANION GAP 9 mmol/L (5-15); BLOOD UREA NITROGEN 20 mg/dL (7-18); CALCIUM 8.2 MG/DL (8.5-10.1); CARBON DIOXIDE 27 MMOL/L (21-32); CHLORIDE 107 MMOL/L (98-107); POTASSIUM 4.7 MMOL/L (3.5-5.1); SODIUM 143 MMOL/L (136-145)
[2020-01-05] MEDS: Solu-MEDROL 40mg Inj IVP SCH ×3 (06:15→21:34)
[2020-01-05] MEDS: Vancomycin 1.25gm/NS Premix IVPB SCH ×2 (06:16→18:44)
[2020-01-05 06:46] LABS: CREATINE KINASE 1317 U/L (26-308); PHOSPHORUS 1.9 MG/DL (2.5-4.9)
[2020-01-05] MEDS: Heparin 5000 units/ml inj SUBQ SCH ×2 (08:22→20:25)
[2020-01-05] MEDS: fentaNYL Citrate 2500mcg in NS 250ml IV SCH ×2 (11:33→21:33)
--- NOTE | 2020-01-05 12:01 | Pulmonology Progress Note ---
Assessment/Plan Assessment/Plan IMPRESSION: 1. Hyperkalemia. 2. Respiratory failure. 3. Marked leukocytosis. 4. Chronic obstructive pulmonary disease. 5. History of hepatitis C. DISCUSSION: 1. Will adjust vent; continue AC mode 2. Continue IV fluids. 3. Avoid potassium. 4. Continue azithromycin, Rocephin, Pepcid, Fentanyl and Versed 5. DVT prophylaxis. 6. Check AM labs and ABG 7. Solu-Medrol 40 IV q.6 h. 8. Broad antibiotic coverage. 9. I will follow carefully. Wean as tolerated. Hardik Medina M.D. Subjective Interval Events: On max versed and fentanyl Constitutional: Reports: no symptoms HEENT: Repors: no symptoms Respiratory: Reports: no symptoms Cardiovascular: Reports: no symptoms Allergies: Coded Allergies: UNABLE TO ASSESS (Unverified , 01/01/20) Objective Last 24 Hour Vital Signs Date Time Temp Pulse Resp B/P (MAP) Pulse Ox O2 Delivery O2 Flow Rate FiO2 01/05/20 11:43 26 Endotracheal Tube 50 01/05/20 11:33 26 Endotracheal Tube 50 01/05/20 11:21 106 26 50 01/05/20 11:00 112 15 155/100 (118) 96 01/05/20 11:00 15 Endotracheal Tube 50 01/05/20 11:00 15 Endotracheal Tube 50 01/05/20 10:30 20 Endotracheal Tube 50 01/05/20 10:00 15 Endotracheal Tube 50 01/05/20 10:00 15 Endotracheal Tube 50 01/05/20 10:00 114 15 153/109 (124) 94 01/05/20 09:40 25 Endotracheal Tube 50 01/05/20 09:05 120 24 50 01/05/20 09:00 24 Endotracheal Tube 50 01/05/20 09:00 24 Endotracheal Tube 50 01/05/20 09:00 126 24 165/104 (124) 95 01/05/20 08:00 97.5 79 18 141/77 (98) 98 01/05/20 08:00 18 Endotracheal Tube 50 01/05/20 08:00 18 Endotracheal Tube 01/05/20 08:00 50 01/05/20 08:00 Mechanical Ventilator 01/05/20 08:00 124 01/05/20 07:30 81 18 139/78 (98) 97 01/05/20 07:25 79 18 50 01/05/20 07:00 83 18 144/74 (97) 97 01/05/20 07:00 18 Endotracheal Tube 50 01/05/20 07:00 18 Endotracheal Tube 01/05/20 06:55 18 50 01/05/20 06:30 100 61 01/05/20 06:30 89 18 140/75 (96) 97 01/05/20 06:00 93 18 134/80 (98) 96 01/05/20 06:00 18 Mechanical Ventilator 50 01/05/20 06:00 18 Mechanical Ventilator 01/05/20 05:30 99 18 135/81 (99) 96 01/05/20 05:20 91 18 50 01/05/20 05:00 110 19 168/95 (119) 96 01/05/20 04:30 119 14 129/80 (96) 97 01/05/20 04:15 106 18 130/84 (99) 96 01/05/20 04:00 106 01/05/20 04:00 16 Mechanical Ventilator 50 01/05/20 04:00 20 Mechanical Ventilator 50 01/05/20 04:00 50 01/05/20 04:00 Mechanical Ventilator 01/05/20 04:00 99.0 111 11 144/91 (108) 94 01/05/20 03:30 121 15 164/119 (134) 95 01/05/20 03:18 18 60 01/05/20 03:06 90 18 50 01/05/20 03:00 132 23 216/124 (154) 98 01/05/20 03:00 18 Mechanical Ventilator 01/05/20 03:00 20 Mechanical Ventilator 50 01/05/20 02:30 129 18 244/119 (160) 98 01/05/20 02:00 123 17 224/109 (147) 97 01/05/20 02:00 18 Mechanical Ventilator 50 01/05/20 02:00 22 Mechanical Ventilator 50 01/05/20 01:30 116 14 183/120 (141) 98 01/05/20 01:01 91 18 50 01/05/20 01:00 95 19 124/85 (98) 97 01/05/20 01:00 18 Mechanical Ventilator 50 01/05/20 01:00 20 Mechanical Ventilator 50 01/05/20 00:46 18 Mechanical Ventilator 60 01/05/20 00:45 96 18 121/80 (94) 97 01/05/20 00:30 98 18 120/84 (96) 96 01/05/20 00:15 100 18 124/90 (101) 96 01/05/20 00:00 99.0 101 18 120/94 (103) 95 01/05/20 00:00 50 01/05/20 00:00 18 Mechanical Ventilator 60 01/05/20 00:00 16 Mechanical Ventilator 60 01/05/20 00:00 108 01/05/20 00:00 Mechanical Ventilator 01/04/20 23:45 102 18 127/91 (103) 94 01/04/20 23:30 94 18 50 01/04/20 23:30 102 18 117/87 (97) 94 01/04/20 23:08 18 Mechanical Ventilator 60 01/04/20 23:00 18 Mechanical Ventilator 60 01/04/20 23:00 30 Mechanical Ventilator 60 01/04/20 23:00 109 18 117/86 (96) 95 01/04/20 22:30 113 10 152/106 (121) 93 01/04/20 22:00 24 Mechanical Ventilator 60 01/04/20 22:00 26 Mechanical Ventilator 60 01/04/20 22:00 113 13 165/110 (128) 92 01/04/20 21:49 Mechanical Ventilator 50 01/04/20 21:30 130 30 209/137 (161) 93 01/04/20 21:18 86 19 50 01/04/20 21:00 20 Mechanical Ventilator 60 01/04/20 21:00 15 Mechanical Ventilator 60 01/04/20 21:00 121 27 209/128 (155) 94 01/04/20 20:30 90 18 165/92 (116) 96 01/04/20 20:15 87 18 147/95 (112) 98 01/04/20 20:00 89 01/04/20 20:00 16 Mechanical Ventilator 60 01/04/20 20:00 18 Mechanical Ventilator 01/04/20 20:00 50 01/04/20 20:00 98.6 88 18 147/93 (111) 97 01/04/20 20:00 Mechanical Ventilator 01/04/20 19:30 87 18 154/91 (112) 96 01/04/20 19:01 87 18 50 01/04/20 19:00 87 18 152/86 (108) 95 01/04/20 19:00 18 Mechanical Ventilator 50 01/04/20 19:00 18 Mechanical Ventilator 50 01/04/20 18:45 86 18 154/83 (106) 96 01/04/20 18:30 85 19 152/85 (107) 97 01/04/20 18:15 87 18 160/90 (113) 96 01/04/20 18:05 18 Mechanical Ventilator 50 01/04/20 18:05 18 Mechanical Ventilator 50 01/04/20 18:04 18 Mechanical Ventilator 50 01/04/20 18:00 88 18 153/87 (109) 95 01/04/20 17:45 94 18 150/93 (112) 96 01/04/20 17:30 89 18 142/79 (100) 94 01/04/20 17:29 89 18 50 01/04/20 17:15 89 18 139/82 (101) 95 01/04/20 17:15 18 Mechanical Ventilator 50 01/04/20 17:00 18 Mechanical Ventilator 50 01/04/20 17:00 18 Mechanical Ventilator 50 01/04/20 17:00 89 18 142/81 (101) 96 01/04/20 16:45 18 Mechanical Ventilator 50 01/04/20 16:45 90 18 145/78 (100) 95 01/04/20 16:30 89 18 143/81 (101) 94 01/04/20 16:30 18 Mechanical Ventilator 50 01/04/20 16:15 18 Mechanical Ventilator 50 01/04/20 16:15 88 18 141/83 (102) 95 01/04/20 16:00 50 01/04/20 16:00 Mechanical Ventilator 01/04/20 16:00 86 01/04/20 16:00 98.6 86 18 147/82 (103) 100 01/04/20 16:00 18 Mechanical Ventilator 50 01/04/20 16:00 18 Mechanical Ventilator 50 01/04/20 15:43 18 Mechanical Ventilator 50 01/04/20 15:40 18 Mechanical Ventilator 50 01/04/20 15:26 85 18 131/79 (96) 98 01/04/20 15:20 88 18 50 01/04/20 15:00 86 18 131/73 (92) 97 01/04/20 15:00 18 Mechanical Ventilator 50 01/04/20 15:00 18 Mechanical Ventilator 50 01/04/20 14:30 89 18 118/76 (90) 96 01/04/20 14:15 90 18 121/73 (89) 97 01/04/20 14:00 93 18 119/74 (89) 97 01/04/20 14:00 18 Mechanical Ventilator 50 01/04/20 14:00 18 Mechanical Ventilator 50 01/04/20 13:45 20 Mechanical Ventilator 50 01/04/20 13:45 96 18 123/76 (92) 96 01/04/20 13:30 21 Mechanical Ventilator 50 01/04/20 13:30 96 18 127/76 (93) 98 01/04/20 13:15 100 17 182/85 (117) 01/04/20 13:15 20 Mechanical Ventilator 50 01/04/20 13:05 95 16 60 01/04/20 13:00 93 18 126/77 (93) 100 01/04/20 13:00 20 Mechanical Ventilator 50 01/04/20 13:00 20 Mechanical Ventilator 50 01/04/20 13:00 50 01/04/20 12:51 18 Mechanical Ventilator 60 01/04/20 12:51 18 182/85 Mechanical Ventilator 60 01/04/20 12:51 18 Mechanical Ventilator 60 01/04/20 12:45 95 18 124/76 (92) 100 01/04/20 12:45 18 Mechanical Ventilator 60 01/04/20 12:30 100 18 129/83 (98) 100 01/04/20 12:15 98 18 123/77 (92) 100 Intake and Output 01/04/20 01/05/20 19:00 07:00 Intake Total 2532.335 ml 1760 ml Output Total 1150 ml 1135 ml Balance 1382.335 ml 625 ml IV Total 2532.335 ml 1760 ml Output Urine Total 1150 ml 1135 ml General Appearance: no acute distress HEENT: normocephalic Respiratory/Chest: chest wall non-tender, decreased breath sounds Cardiovascular: normal peripheral pulses Abdomen: normal bowel sounds Laboratory Tests 01/04/20 16:05: Arterial Blood pH 7.381, Arterial Blood Partial Pressure CO2 45.3H, Arterial Blood Partial Pressure O2 74.0L, Arterial Blood HCO3 26.3H, Arterial Blood Oxygen Saturation 94.2L, Arterial Blood Base Excess 0.8, Juan Test Positive 01/05/20 04:50: White Blood Count 13.2H, Red Blood Count 3.83L, Hemoglobin 12.7L, Hematocrit 37.3L, Mean Corpuscular Volume 97, Mean Corpuscular Hemoglobin 33.1H, Mean Corpuscular Hemoglobin Concent 34.1, Red Cell Distribution Width 12.3, Platelet Count 156, Mean Platelet Volume 5.8L, Neutrophils (%) (Auto) 82.1H, Lymphocytes (%) (Auto) 6.3L, Monocytes (%) (Auto) 10.0, Eosinophils (%) (Auto) 0.0, Basophils (%) (Auto) 1.5, Sodium Level 143, Potassium Level 4.7, Chloride Level 107, Carbon Dioxide Level 27, Anion Gap 9, Blood Urea Nitrogen 20H, Creatinine 1.0, Estimat Glomerular Filtration Rate > 60, Glucose Level 145H, Calcium Level 8.2L, Phosphorus Level 1.9L, Magnesium Level 2.7H, Total Creatine Kinase 1317H, Vancomycin Level Trough 0.4L 01/05/20 11:04: Arterial Blood pH 7.368, Arterial Blood Partial Pressure CO2 47.2H, Arterial Blood Partial Pressure O2 85.9, Arterial Blood HCO3 26.6H, Arterial Blood Oxygen Saturation 95.9, Arterial Blood Base Excess 0.8, Juan Test Positive Current Medications Medications (Trade) Dose Ordered Sig/Samia Route PRN Reason Start Time Stop Time Status Last Admin Dose Admin Acetaminophen (Tylenol) 650 mg Q4H PRN ORAL fever 01/01/20 19:45 01/31/20 19:44 01/02/20 17:51 Acetaminophen (Tylenol) 650 mg Q4H PRN ORAL Mild Pain (Pain Scale 1-3) 01/01/20 19:45 01/31/20 19:44 Acetaminophen (Tylenol) 650 mg Q4H PRN RECTAL Mild Pain (Pain Scale 1-3) 01/01/20 19:45 01/31/20 19:44 Acetaminophen (Tylenol) 650 mg Q4H PRN RECTAL fever 01/01/20 19:45 01/31/20 19:44 Azithromycin 500 mg/Dextrose 275 ml @ 275 mls/hr Q24H IV 01/01/20 21:00 01/06/20 20:59 01/04/20 21:16 Ceftriaxone Sodium 1 gm/ Dextrose 55 ml @ 110 mls/hr Q24H IV 01/01/20 22:00 01/08/20 21:59 01/04/20 22:00 Chlorhexidine Gluconate (Bhavana-Hex 2%) 1 applic DAILY@2000 TOPIC 01/02/20 20:00 04/01/20 19:59 01/04/20 21:16 Dextrose (Dextrose 50%) 25 ml Q30M PRN IV Hypoglycemia 01/01/20 19:45 03/31/20 19:44 Dextrose (Dextrose 50%) 50 ml Q30M PRN IV Hypoglycemia 01/01/20 19:45 03/31/20 19:44 Famotidine (Pepcid I.v.) 20 mg Q12HR IVP 01/01/20 21:00 01/31/20 20:59 01/05/20 08:20 Fentanyl Citrate 2500 mcg/Sodium Chloride 250 ml @ 0 mls/hr Q24H IV 01/02/20 10:20 01/09/20 10:19 01/05/20 11:33 Haloperidol Lactate 5 mg/ Dextrose 56 ml @ 224 mls/hr Q6H PRN IVPB Agitation 01/03/20 10:00 02/17/20 09:59 01/04/20 10:52 Heparin Sodium (Porcine) (Heparin 5000 units/ml) 5,000 units EVERY 12 HOURS SUBQ 01/01/20 21:00 02/15/20 20:59 01/04/20 21:20 Methylprednisolone Sodium Succinate (Solu-MEDROL) 40 mg EVERY 8 HOURS IVP 01/02/20 14:00 04/01/20 13:59 01/05/20 06:15 Midazolam HCl 100 ml @ 0 mls/hr Q24H PRN IV Agitation 01/04/20 11:20 01/11/20 11:19 01/05/20 11:43 Nitroglycerin (Ntg) 0.4 mg Q5M PRN SL Prn Chest Pain 01/01/20 19:45 01/31/20 19:44 Ondansetron HCl (Zofran) 4 mg Q6H PRN IVP Nausea & Vomiting 01/01/20 19:45 01/31/20 19:44 Polyethylene Glycol (Miralax) 17 gm DAILYPRN PRN ORAL Constipation 01/01/20 19:45 01/31/20 19:44 Sodium Chloride 1,000 ml @ 100 mls/hr Q10H IV 01/04/20 13:54 02/03/20 13:53 01/05/20 11:33 Vancomycin HCl (Vanco rx to dose) 1 ea DAILY PRN MISC Per rx protocol 01/03/20 18:15 02/02/20 18:14 Vancomycin/Sodium Chloride 275 ml @ 183.333 mls/hr Q12HR@0600,1800 IVPB 01/04/20 06:00 01/09/20 05:59 01/05/20 06:16 Hardik Medina MD Jan 05, 2020 12:01
--- NOTE | 2020-01-05 12:48 | General Progress Note ---
Assessment/Plan Problem List: (1) Rhabdomyolysis ICD Codes: M62.82 - Rhabdomyolysis SNOMED: 927181432 (2) Elevated liver enzymes ICD Codes: R74.8 - Abnormal levels of other serum enzymes SNOMED: 657785117 (3) Hyperkalemia ICD Codes: E87.5 - Hyperkalemia SNOMED: 14059140 (4) LUDMILA (acute kidney injury) ICD Codes: N17.9 - Acute kidney failure, unspecified SNOMED: 5565836, 68729735 (5) Suspected COVID-19 virus infection ICD Codes: R68.89 - Other general symptoms and signs SNOMED: 111057744 (6) COPD (chronic obstructive pulmonary disease) ICD Codes: J44.9 - Chronic obstructive pulmonary disease, unspecified SNOMED: 49926485 (7) Respiratory failure ICD Codes: J96.90 - Respiratory failure, unspecified, unspecified whether with hypoxia or hypercapnia SNOMED: 426046461 (8) Drug abuse ICD Codes: F19.10 - Other psychoactive substance abuse, uncomplicated SNOMED: 91969158 (9) Staphylococcal septicemia Assessment & Plan: staph hemolyticus likely contaminant ICD Codes: A41.2 - Sepsis due to unspecified staphylococcus SNOMED: 12853434, [id number] Assessment/Plan: He needs sedation, , picc as poor access,pulled out , now fem cath for access + hydration , ludmila and K improving, Staph sepsis likely contaminant Vent care, icu orders reviewed and updated,low phos , will give some glucose and lipids icu time 40min Subjective ROS Limited/Unobtainable: Yes Allergies: Coded Allergies: UNABLE TO ASSESS (Unverified , 01/01/20) Subjective on vent, sedated, 50% FIO2 Objective Last 24 Hour Vital Signs Date Time Temp Pulse Resp B/P (MAP) Pulse Ox O2 Delivery O2 Flow Rate FiO2 01/05/20 12:00 97.8 107 14 155/104 (121) 94 01/05/20 12:00 50 01/05/20 12:00 108 01/05/20 12:00 Mechanical Ventilator 01/05/20 12:00 14 Endotracheal Tube 50 01/05/20 12:00 14 Endotracheal Tube 50 01/05/20 11:45 106 12 164/93 (116) 94 01/05/20 11:43 26 Endotracheal Tube 50 01/05/20 11:33 26 Endotracheal Tube 50 01/05/20 11:30 111 15 163/108 (126) 94 01/05/20 11:21 106 26 50 01/05/20 11:00 112 15 155/100 (118) 96 01/05/20 11:00 15 Endotracheal Tube 50 01/05/20 11:00 15 Endotracheal Tube 50 01/05/20 10:45 112 16 166/114 (131) 94 01/05/20 10:30 123 20 161/135 (144) 94 01/05/20 10:30 20 Endotracheal Tube 50 01/05/20 10:15 116 15 129/95 (106) 98 01/05/20 10:00 15 Endotracheal Tube 50 01/05/20 10:00 15 Endotracheal Tube 50 01/05/20 10:00 114 15 153/109 (124) 94 01/05/20 09:45 118 20 183/139 (154) 94 01/05/20 09:40 25 Endotracheal Tube 50 01/05/20 09:30 126 20 181/145 (157) 98 01/05/20 09:05 120 24 50 01/05/20 09:00 24 Endotracheal Tube 50 01/05/20 09:00 24 Endotracheal Tube 50 01/05/20 09:00 126 24 165/104 (124) 95 01/05/20 08:00 97.5 79 18 141/77 (98) 98 01/05/20 08:00 18 Endotracheal Tube 50 01/05/20 08:00 18 Endotracheal Tube 01/05/20 08:00 50 01/05/20 08:00 Mechanical Ventilator 01/05/20 08:00 124 01/05/20 07:30 81 18 139/78 (98) 97 01/05/20 07:25 79 18 50 01/05/20 07:00 83 18 144/74 (97) 97 01/05/20 07:00 18 Endotracheal Tube 50 01/05/20 07:00 18 Endotracheal Tube 01/05/20 06:55 18 50 01/05/20 06:30 100 61 01/05/20 06:30 89 18 140/75 (96) 97 01/05/20 06:00 93 18 134/80 (98) 96 01/05/20 06:00 18 Mechanical Ventilator 50 01/05/20 06:00 18 Mechanical Ventilator 01/05/20 05:30 99 18 135/81 (99) 96 01/05/20 05:20 91 18 50 01/05/20 05:00 110 19 168/95 (119) 96 01/05/20 04:30 119 14 129/80 (96) 97 01/05/20 04:15 106 18 130/84 (99) 96 01/05/20 04:00 106 01/05/20 04:00 16 Mechanical Ventilator 50 01/05/20 04:00 20 Mechanical Ventilator 50 01/05/20 04:00 50 01/05/20 04:00 Mechanical Ventilator 01/05/20 04:00 99.0 111 11 144/91 (108) 94 01/05/20 03:30 121 15 164/119 (134) 95 01/05/20 03:18 18 60 01/05/20 03:06 90 18 50 01/05/20 03:00 132 23 216/124 (154) 98 01/05/20 03:00 18 Mechanical Ventilator 01/05/20 03:00 20 Mechanical Ventilator 50 01/05/20 02:30 129 18 244/119 (160) 98 01/05/20 02:00 123 17 224/109 (147) 97 01/05/20 02:00 18 Mechanical Ventilator 50 01/05/20 02:00 22 Mechanical Ventilator 50 01/05/20 01:30 116 14 183/120 (141) 98 01/05/20 01:01 91 18 50 01/05/20 01:00 95 19 124/85 (98) 97 01/05/20 01:00 18 Mechanical Ventilator 50 01/05/20 01:00 20 Mechanical Ventilator 50 01/05/20 00:46 18 Mechanical Ventilator 60 01/05/20 00:45 96 18 121/80 (94) 97 01/05/20 00:30 98 18 120/84 (96) 96 01/05/20 00:15 100 18 124/90 (101) 96 01/05/20 00:00 99.0 101 18 120/94 (103) 95 01/05/20 00:00 50 01/05/20 00:00 18 Mechanical Ventilator 60 01/05/20 00:00 16 Mechanical Ventilator 60 01/05/20 00:00 108 01/05/20 00:00 Mechanical Ventilator 01/04/20 23:45 102 18 127/91 (103) 94 01/04/20 23:30 94 18 50 01/04/20 23:30 102 18 117/87 (97) 94 01/04/20 23:08 18 Mechanical Ventilator 60 01/04/20 23:00 18 Mechanical Ventilator 60 01/04/20 23:00 30 Mechanical Ventilator 60 01/04/20 23:00 109 18 117/86 (96) 95 01/04/20 22:30 113 10 152/106 (121) 93 01/04/20 22:00 24 Mechanical Ventilator 60 01/04/20 22:00 26 Mechanical Ventilator 60 01/04/20 22:00 113 13 165/110 (128) 92 01/04/20 21:49 Mechanical Ventilator 50 01/04/20 21:30 130 30 209/137 (161) 93 01/04/20 21:18 86 19 50 01/04/20 21:00 20 Mechanical Ventilator 60 01/04/20 21:00 15 Mechanical Ventilator 60 01/04/20 21:00 121 27 209/128 (155) 94 01/04/20 20:30 90 18 165/92 (116) 96 01/04/20 20:15 87 18 147/95 (112) 98 01/04/20 20:00 89 01/04/20 20:00 16 Mechanical Ventilator 60 01/04/20 20:00 18 Mechanical Ventilator 01/04/20 20:00 50 01/04/20 20:00 98.6 88 18 147/93 (111) 97 01/04/20 20:00 Mechanical Ventilator 01/04/20 19:30 87 18 154/91 (112) 96 01/04/20 19:01 87 18 50 01/04/20 19:00 87 18 152/86 (108) 95 01/04/20 19:00 18 Mechanical Ventilator 50 01/04/20 19:00 18 Mechanical Ventilator 50 01/04/20 18:45 86 18 154/83 (106) 96 01/04/20 18:30 85 19 152/85 (107) 97 01/04/20 18:15 87 18 160/90 (113) 96 01/04/20 18:05 18 Mechanical Ventilator 50 01/04/20 18:05 18 Mechanical Ventilator 50 01/04/20 18:04 18 Mechanical Ventilator 50 01/04/20 18:00 88 18 153/87 (109) 95 01/04/20 17:45 94 18 150/93 (112) 96 01/04/20 17:30 89 18 142/79 (100) 94 01/04/20 17:29 89 18 50 01/04/20 17:15 89 18 139/82 (101) 95 01/04/20 17:15 18 Mechanical Ventilator 50 01/04/20 17:00 18 Mechanical Ventilator 50 01/04/20 17:00 18 Mechanical Ventilator 50 01/04/20 17:00 89 18 142/81 (101) 96 01/04/20 16:45 18 Mechanical Ventilator 50 01/04/20 16:45 90 18 145/78 (100) 95 01/04/20 16:30 89 18 143/81 (101) 94 01/04/20 16:30 18 Mechanical Ventilator 50 01/04/20 16:15 18 Mechanical Ventilator 50 01/04/20 16:15 88 18 141/83 (102) 95 01/04/20 16:00 50 01/04/20 16:00 Mechanical Ventilator 01/04/20 16:00 86 01/04/20 16:00 98.6 86 18 147/82 (103) 100 01/04/20 16:00 18 Mechanical Ventilator 50 01/04/20 16:00 18 Mechanical Ventilator 50 01/04/20 15:43 18 Mechanical Ventilator 50 01/04/20 15:40 18 Mechanical Ventilator 50 01/04/20 15:26 85 18 131/79 (96) 98 01/04/20 15:20 88 18 50 01/04/20 15:00 86 18 131/73 (92) 97 01/04/20 15:00 18 Mechanical Ventilator 50 01/04/20 15:00 18 Mechanical Ventilator 50 01/04/20 14:30 89 18 118/76 (90) 96 01/04/20 14:15 90 18 121/73 (89) 97 01/04/20 14:00 93 18 119/74 (89) 97 01/04/20 14:00 18 Mechanical Ventilator 50 01/04/20 14:00 18 Mechanical Ventilator 50 01/04/20 13:45 20 Mechanical Ventilator 50 01/04/20 13:45 96 18 123/76 (92) 96 01/04/20 13:30 21 Mechanical Ventilator 50 01/04/20 13:30 96 18 127/76 (93) 98 01/04/20 13:15 100 17 182/85 (117) 01/04/20 13:15 20 Mechanical Ventilator 50 01/04/20 13:05 95 16 60 01/04/20 13:00 93 18 126/77 (93) 100 01/04/20 13:00 20 Mechanical Ventilator 50 01/04/20 13:00 20 Mechanical Ventilator 50 01/04/20 13:00 50 01/04/20 12:51 18 Mechanical Ventilator 60 01/04/20 12:51 18 182/85 Mechanical Ventilator 60 01/04/20 12:51 18 Mechanical Ventilator 60 01/04/20 12:45 95 18 124/76 (92) 100 01/04/20 12:45 18 Mechanical Ventilator 60 Intake and Output 01/04/20 01/05/20 19:00 07:00 Intake Total 2532.335 ml 1760 ml Output Total 1150 ml 1135 ml Balance 1382.335 ml 625 ml IV Total 2532.335 ml 1760 ml Output Urine Total 1150 ml 1135 ml Laboratory Tests 01/04/20 16:05: Arterial Blood pH 7.381, Arterial Blood Partial Pressure CO2 45.3H, Arterial Blood Partial Pressure O2 74.0L, Arterial Blood HCO3 26.3H, Arterial Blood Oxygen Saturation 94.2L, Arterial Blood Base Excess 0.8, Juan Test Positive 01/05/20 04:50: White Blood Count 13.2H, Red Blood Count 3.83L, Hemoglobin 12.7L, Hematocrit 37.3L, Mean Corpuscular Volume 97, Mean Corpuscular Hemoglobin 33.1H, Mean Corpuscular Hemoglobin Concent 34.1, Red Cell Distribution Width 12.3, Platelet Count 156, Mean Platelet Volume 5.8L, Neutrophils (%) (Auto) 82.1H, Lymphocytes (%) (Auto) 6.3L, Monocytes (%) (Auto) 10.0, Eosinophils (%) (Auto) 0.0, Basophils (%) (Auto) 1.5, Sodium Level 143, Potassium Level 4.7, Chloride Level 107, Carbon Dioxide Level 27, Anion Gap 9, Blood Urea Nitrogen 20H, Creatinine 1.0, Estimat Glomerular Filtration Rate > 60, Glucose Level 145H, Calcium Level 8.2L, Phosphorus Level 1.9L, Magnesium Level 2.7H, Total Creatine Kinase 1317H, Vancomycin Level Trough 0.4L 01/05/20 11:04: Arterial Blood pH 7.368, Arterial Blood Partial Pressure CO2 47.2H, Arterial Blood Partial Pressure O2 85.9, Arterial Blood HCO3 26.6H, Arterial Blood Oxygen Saturation 95.9, Arterial Blood Base Excess 0.8, Juan Test Positive Height (Feet): 5 Height (Inches): 8.00 Weight (Pounds): 190 EENT: other - injtubated eyes closed Neck: normal alignment Cardiovascular: normal rate, regular rhythm, tachycardia Respiratory/Chest: rhonchi - bilaterally Abdomen: non tender, soft Edema: no edema noted Arm (L), no edema noted Arm (R), no edema noted Leg (L), no edema noted Leg (R), no edema noted Pedal (L), no edema noted Pedal (R), no edema noted Generalized Francois Dickey MD Jan 05, 2020 12:47
[2020-01-05] MEDS: DEXTROSE IV SCH (14:22)
[2020-01-05] MEDS: SOD CHL IV SCH (14:22)
[2020-01-05] MEDS: SODIUM PHOSPHATE IV SCH (14:22)
--- NOTE | 2020-01-05 14:28 | Surgery Progress Note ---
Surgery Progress Note Subjective Procedure Performed Left femoral triple-lumen venous central catheter insertion Additional Comments ill appearing lab snoted Objective Last 24 Hour Vital Signs Date Time Temp Pulse Resp B/P (MAP) Pulse Ox O2 Delivery O2 Flow Rate FiO2 01/05/20 14:00 19 Endotracheal Tube 50 01/05/20 14:00 18 Endotracheal Tube 50 01/05/20 13:00 108 11 149/93 (111) 93 01/05/20 13:00 11 Endotracheal Tube 50 01/05/20 13:00 11 Endotracheal Tube 50 01/05/20 12:00 97.8 107 14 155/104 (121) 94 01/05/20 12:00 50 01/05/20 12:00 108 01/05/20 12:00 Mechanical Ventilator 01/05/20 12:00 14 Endotracheal Tube 50 01/05/20 12:00 14 Endotracheal Tube 50 01/05/20 11:45 106 12 164/93 (116) 94 01/05/20 11:43 26 Endotracheal Tube 50 01/05/20 11:33 26 Endotracheal Tube 50 01/05/20 11:30 111 15 163/108 (126) 94 01/05/20 11:21 106 26 50 01/05/20 11:00 112 15 155/100 (118) 96 01/05/20 11:00 15 Endotracheal Tube 50 01/05/20 11:00 15 Endotracheal Tube 50 01/05/20 10:45 112 16 166/114 (131) 94 01/05/20 10:30 123 20 161/135 (144) 94 01/05/20 10:30 20 Endotracheal Tube 50 01/05/20 10:15 116 15 129/95 (106) 98 01/05/20 10:00 15 Endotracheal Tube 50 01/05/20 10:00 15 Endotracheal Tube 50 01/05/20 10:00 114 15 153/109 (124) 94 01/05/20 09:45 118 20 183/139 (154) 94 01/05/20 09:40 25 Endotracheal Tube 50 01/05/20 09:30 126 20 181/145 (157) 98 01/05/20 09:05 120 24 50 01/05/20 09:00 24 Endotracheal Tube 50 01/05/20 09:00 24 Endotracheal Tube 50 01/05/20 09:00 126 24 165/104 (124) 95 01/05/20 08:00 97.5 79 18 141/77 (98) 98 01/05/20 08:00 18 Endotracheal Tube 50 01/05/20 08:00 18 Endotracheal Tube 01/05/20 08:00 50 01/05/20 08:00 Mechanical Ventilator 01/05/20 08:00 124 01/05/20 07:30 81 18 139/78 (98) 97 01/05/20 07:25 79 18 50 01/05/20 07:00 83 18 144/74 (97) 97 01/05/20 07:00 18 Endotracheal Tube 50 01/05/20 07:00 18 Endotracheal Tube 01/05/20 06:55 18 50 01/05/20 06:30 100 61 01/05/20 06:30 89 18 140/75 (96) 97 01/05/20 06:00 93 18 134/80 (98) 96 01/05/20 06:00 18 Mechanical Ventilator 50 01/05/20 06:00 18 Mechanical Ventilator 01/05/20 05:30 99 18 135/81 (99) 96 01/05/20 05:20 91 18 50 01/05/20 05:00 110 19 168/95 (119) 96 01/05/20 04:30 119 14 129/80 (96) 97 01/05/20 04:15 106 18 130/84 (99) 96 01/05/20 04:00 106 01/05/20 04:00 16 Mechanical Ventilator 50 01/05/20 04:00 20 Mechanical Ventilator 50 01/05/20 04:00 50 01/05/20 04:00 Mechanical Ventilator 01/05/20 04:00 99.0 111 11 144/91 (108) 94 01/05/20 03:30 121 15 164/119 (134) 95 01/05/20 03:18 18 60 01/05/20 03:06 90 18 50 01/05/20 03:00 132 23 216/124 (154) 98 01/05/20 03:00 18 Mechanical Ventilator 01/05/20 03:00 20 Mechanical Ventilator 50 01/05/20 02:30 129 18 244/119 (160) 98 01/05/20 02:00 123 17 224/109 (147) 97 01/05/20 02:00 18 Mechanical Ventilator 50 01/05/20 02:00 22 Mechanical Ventilator 50 01/05/20 01:30 116 14 183/120 (141) 98 01/05/20 01:01 91 18 50 01/05/20 01:00 95 19 124/85 (98) 97 01/05/20 01:00 18 Mechanical Ventilator 50 01/05/20 01:00 20 Mechanical Ventilator 50 01/05/20 00:46 18 Mechanical Ventilator 60 01/05/20 00:45 96 18 121/80 (94) 97 01/05/20 00:30 98 18 120/84 (96) 96 01/05/20 00:15 100 18 124/90 (101) 96 01/05/20 00:00 99.0 101 18 120/94 (103) 95 01/05/20 00:00 50 01/05/20 00:00 18 Mechanical Ventilator 60 01/05/20 00:00 16 Mechanical Ventilator 60 01/05/20 00:00 108 01/05/20 00:00 Mechanical Ventilator 01/04/20 23:45 102 18 127/91 (103) 94 01/04/20 23:30 94 18 50 01/04/20 23:30 102 18 117/87 (97) 94 01/04/20 23:08 18 Mechanical Ventilator 60 01/04/20 23:00 18 Mechanical Ventilator 60 01/04/20 23:00 30 Mechanical Ventilator 60 01/04/20 23:00 109 18 117/86 (96) 95 01/04/20 22:30 113 10 152/106 (121) 93 01/04/20 22:00 24 Mechanical Ventilator 60 01/04/20 22:00 26 Mechanical Ventilator 60 01/04/20 22:00 113 13 165/110 (128) 92 01/04/20 21:49 Mechanical Ventilator 50 01/04/20 21:30 130 30 209/137 (161) 93 01/04/20 21:18 86 19 50 01/04/20 21:00 20 Mechanical Ventilator 60 01/04/20 21:00 15 Mechanical Ventilator 60 01/04/20 21:00 121 27 209/128 (155) 94 01/04/20 20:30 90 18 165/92 (116) 96 01/04/20 20:15 87 18 147/95 (112) 98 01/04/20 20:00 89 01/04/20 20:00 16 Mechanical Ventilator 60 01/04/20 20:00 18 Mechanical Ventilator 01/04/20 20:00 50 01/04/20 20:00 98.6 88 18 147/93 (111) 97 01/04/20 20:00 Mechanical Ventilator 01/04/20 19:30 87 18 154/91 (112) 96 01/04/20 19:01 87 18 50 01/04/20 19:00 87 18 152/86 (108) 95 01/04/20 19:00 18 Mechanical Ventilator 50 01/04/20 19:00 18 Mechanical Ventilator 50 01/04/20 18:45 86 18 154/83 (106) 96 01/04/20 18:30 85 19 152/85 (107) 97 01/04/20 18:15 87 18 160/90 (113) 96 01/04/20 18:05 18 Mechanical Ventilator 50 01/04/20 18:05 18 Mechanical Ventilator 50 01/04/20 18:04 18 Mechanical Ventilator 50 01/04/20 18:00 88 18 153/87 (109) 95 01/04/20 17:45 94 18 150/93 (112) 96 01/04/20 17:30 89 18 142/79 (100) 94 01/04/20 17:29 89 18 50 01/04/20 17:15 89 18 139/82 (101) 95 01/04/20 17:15 18 Mechanical Ventilator 50 01/04/20 17:00 18 Mechanical Ventilator 50 01/04/20 17:00 18 Mechanical Ventilator 50 01/04/20 17:00 89 18 142/81 (101) 96 01/04/20 16:45 18 Mechanical Ventilator 50 01/04/20 16:45 90 18 145/78 (100) 95 01/04/20 16:30 89 18 143/81 (101) 94 01/04/20 16:30 18 Mechanical Ventilator 50 01/04/20 16:15 18 Mechanical Ventilator 50 01/04/20 16:15 88 18 141/83 (102) 95 01/04/20 16:00 50 01/04/20 16:00 Mechanical Ventilator 01/04/20 16:00 86 01/04/20 16:00 98.6 86 18 147/82 (103) 100 01/04/20 16:00 18 Mechanical Ventilator 50 01/04/20 16:00 18 Mechanical Ventilator 50 01/04/20 15:43 18 Mechanical Ventilator 50 01/04/20 15:40 18 Mechanical Ventilator 50 01/04/20 15:26 85 18 131/79 (96) 98 01/04/20 15:20 88 18 50 01/04/20 15:00 86 18 131/73 (92) 97 01/04/20 15:00 18 Mechanical Ventilator 50 01/04/20 15:00 18 Mechanical Ventilator 50 01/04/20 14:30 89 18 118/76 (90) 96 I&O Intake and Output 01/04/20 01/05/20 19:00 07:00 Intake Total 2532.335 ml 1760 ml Output Total 1150 ml 1135 ml Balance 1382.335 ml 625 ml IV Total 2532.335 ml 1760 ml Output Urine Total 1150 ml 1135 ml Dressing: other Wound: other Drains: other Cardiovascular: RSR Respiratory: decreased breath sounds Abdomen: soft, non-tender, present bowel sounds Extremities: edema, no cyanosis Laboratory Tests Test 01/04/20 16:05 01/05/20 04:50 01/05/20 11:04 Arterial Blood pH 7.381 (7.350-7.450) 7.368 (7.350-7.450) Arterial Blood Partial Pressure CO2 45.3 mmHg (35.0-45.0) H 47.2 mmHg (35.0-45.0) H Arterial Blood Partial Pressure O2 74.0 mmHg (75.0-100.0) L 85.9 mmHg (75.0-100.0) Arterial Blood HCO3 26.3 mmol/L (22.0-26.0) H 26.6 mmol/L (22.0-26.0) H Arterial Blood Oxygen Saturation 94.2 % (95-100) L 95.9 % (95-100) Arterial Blood Base Excess 0.8 (-2-2) 0.8 (-2-2) Juan Test Positive Positive White Blood Count 13.2 K/UL (4.8-10.8) H Red Blood Count 3.83 M/UL (4.70-6.10) L Hemoglobin 12.7 G/DL (14.2-18.0) L Hematocrit 37.3 % (42.0-52.0) L Mean Corpuscular Volume 97 FL (80-99) Mean Corpuscular Hemoglobin 33.1 PG (27.0-31.0) H Mean Corpuscular Hemoglobin Concent 34.1 G/DL (32.0-36.0) Red Cell Distribution Width 12.3 % (11.6-14.8) Platelet Count 156 K/UL (150-450) Mean Platelet Volume 5.8 FL (6.5-10.1) L Neutrophils (%) (Auto) 82.1 % (45.0-75.0) H Lymphocytes (%) (Auto) 6.3 % (20.0-45.0) L Monocytes (%) (Auto) 10.0 % (1.0-10.0) Eosinophils (%) (Auto) 0.0 % (0.0-3.0) Basophils (%) (Auto) 1.5 % (0.0-2.0) Sodium Level 143 MMOL/L (136-145) Potassium Level 4.7 MMOL/L (3.5-5.1) Chloride Level 107 MMOL/L (98-107) Carbon Dioxide Level 27 MMOL/L (21-32) Anion Gap 9 mmol/L (5-15) Blood Urea Nitrogen 20 mg/dL (7-18) H Creatinine 1.0 MG/DL (0.55-1.30) Estimat Glomerular Filtration Rate > 60 mL/min (>60) Glucose Level 145 MG/DL (74-106) H Calcium Level 8.2 MG/DL (8.5-10.1) L Phosphorus Level 1.9 MG/DL (2.5-4.9) L Magnesium Level 2.7 MG/DL (1.8-2.4) H Total Creatine Kinase 1317 U/L (26-308) H Vancomycin Level Trough 0.4 ug/mL (5.0-12.0) L Plan Problems: (1) COPD (chronic obstructive pulmonary disease) Assessment & Plan: As per pulmonology Continue vent support (2) Hyperkalemia (3) Respiratory failure Assessment & Plan: Intubated intensive care unit on vent support Unable to be weaned at this time Chest x-ray noted Sedation (4) Rhabdomyolysis Assessment & Plan: IV fluid hydration Trend labs Improving (5) Elevated liver enzymes Assessment & Plan: Likely related to hypotension expressiveness originally. Improving with resuscitation. Likely shock. Hold on ultrasound tentatively Labs improving (6) LUDMILA (acute kidney injury) (7) Suspected COVID-19 virus infection Assessment & Plan: Continues to be ill appearing Pending swabs results initially PICC line placed and patient receiving medications through this but patient was able to pull through his restraints and with movement PICC line was dislodged patient unable to receive sedation medications and requiring urgent central venous catheter insertion. Yousif Bates Jan 05, 2020 14:28
[2020-01-05] MEDS ORDERED: Fat Emulsion Iv 20% 250 ML IV ONE (16:00)
--- NOTE | 2020-01-05 16:19 | Diagnostic Imaging Report ---
Indication: Dyspnea Comparison: 01/03/2020 A single view chest radiograph was obtained. Findings: Pulmonary vascular congestion demonstrated with worsening disease since the last exam. Endotracheal tube is stable. Heart is enlarged. IMPRESSION: Worsening CHF
[2020-01-05] MEDS: Azithromycin 500 MG in D5W 275 ML IV SCH (20:22)
[2020-01-05] MEDS: Dyna-Hex 2% Top Sol 2oz TOPIC SCH (20:27)
[2020-01-05] MEDS: cefTRIAXone 1 GM in D5W 55 ML IV SCH (21:34)
[2020-01-06] VITALS (43 sets, daily range): BP systolic 106–183; BP diastolic 68–133
[2020-01-06] MEDS: Versed 50mg/D5W 100ml 100 ML IV PRN ×5 (02:17→23:32)
[2020-01-06] MEDS: fentaNYL Citrate 2500mcg in NS 250ml IV SCH ×2 (04:52→16:25)
[2020-01-06 05:29] LABS: BASOPHILS % (AUTO) 2.6 % (0.0-2.0); HEMOGLOBIN 12.3 G/DL (14.2-18.0); LYMPHOCYTES % (AUTO) 9.9 % (20.0-45.0); MEAN CORPUSCULAR VOLUME 99 FL (80-99); MONOCYTES % (AUTO) 10.4 % (1.0-10.0); NEUTROPHILS % (AUTO) 77.1 % (45.0-75.0); PLATELET COUNT 149 K/UL (150-450); RED BLOOD COUNT 3.64 M/UL (4.70-6.10); RED CELL DISTRIBUTION WIDTH 12.6 % (11.6-14.8); WHITE BLOOD COUNT 11.9 K/UL (4.8-10.8)
[2020-01-06] MEDS: Vancomycin 1.25gm/NS Premix IVPB SCH ×2 (05:59→18:25)
[2020-01-06] MEDS: Solu-MEDROL 40mg Inj IVP SCH ×3 (06:00→22:13)
[2020-01-06 06:06] LABS: ANION GAP 8 mmol/L (5-15); BLOOD UREA NITROGEN 18 mg/dL (7-18); CALCIUM 7.6 MG/DL (8.5-10.1); CARBON DIOXIDE 26 MMOL/L (21-32); CHLORIDE 102 MMOL/L (98-107); CREATININE 0.9 MG/DL (0.55-1.30); SODIUM 136 MMOL/L (136-145)
[2020-01-06 06:25] LABS: PHOSPHORUS 3.7 MG/DL (2.5-4.9)
[2020-01-06] MEDS: Heparin 5000 units/ml inj SUBQ SCH ×2 (08:40→20:42)
--- NOTE | 2020-01-06 10:46 | Pulmonology Progress Note ---
Assessment/Plan Assessment/Plan IMPRESSION: 1. Hyperkalemia. 2. Respiratory failure. 3. Marked leukocytosis. 4. Chronic obstructive pulmonary disease. 5. History of hepatitis C. DISCUSSION: 1. Will adjust vent; continue AC mode 2. Continue IV fluids. WIll start diuresis 3. Avoid potassium. 4. Continue azithromycin, Rocephin, Pepcid, Fentanyl and Versed 5. DVT prophylaxis. 6. Check AM labs and ABG 7. Solu-Medrol 40 IV q.6 h. 8. Broad antibiotic coverage. 9. I will follow carefully. Wean as tolerated. Hardik Medina M.D. Subjective Interval Events: None new; remains intubated Constitutional: Reports: no symptoms HEENT: Repors: no symptoms Respiratory: Reports: no symptoms Cardiovascular: Reports: no symptoms Allergies: Coded Allergies: UNABLE TO ASSESS (Unverified , 01/01/20) Objective Last 24 Hour Vital Signs Date Time Temp Pulse Resp B/P (MAP) Pulse Ox O2 Delivery O2 Flow Rate FiO2 01/06/20 08:00 50 01/06/20 08:00 Mechanical Ventilator 01/06/20 07:24 18 Mechanical Ventilator 50 01/06/20 06:48 65 18 50 01/06/20 06:30 100 63 01/06/20 06:30 62 18 113/72 (86) 96 01/06/20 06:15 64 18 109/68 (82) 95 01/06/20 06:06 63 18 50 01/06/20 06:00 64 18 108/68 (81) 94 01/06/20 06:00 18 Mechanical Ventilator 50 01/06/20 06:00 18 Mechanical Ventilator 50 01/06/20 05:30 75 18 106/75 (85) 95 01/06/20 05:00 78 12 117/79 (92) 97 01/06/20 05:00 16 Mechanical Ventilator 50 01/06/20 04:52 18 Mechanical Ventilator 60 01/06/20 04:30 98 11 151/112 (125) 99 01/06/20 04:00 18 Mechanical Ventilator 50 01/06/20 04:00 18 Mechanical Ventilator 50 01/06/20 04:00 66 01/06/20 04:00 98.6 65 18 138/89 (105) 96 01/06/20 04:00 Mechanical Ventilator 01/06/20 04:00 50 01/06/20 03:30 66 18 139/85 (103) 96 01/06/20 03:00 66 18 139/88 (105) 97 01/06/20 03:00 18 Mechanical Ventilator 50 01/06/20 03:00 18 Mechanical Ventilator 50 01/06/20 02:39 65 18 50 01/06/20 02:30 67 18 129/88 (102) 97 01/06/20 02:17 16 Mechanical Ventilator 50 01/06/20 02:17 16 Mechanical Ventilator 50 01/06/20 02:00 20 Mechanical Ventilator 50 01/06/20 02:00 67 18 126/81 (96) 97 01/06/20 01:30 68 18 117/78 (91) 97 01/06/20 01:00 70 18 114/73 (87) 96 01/06/20 01:00 22 Mechanical Ventilator 50 01/06/20 01:00 18 Mechanical Ventilator 50 01/06/20 00:53 72 18 50 01/06/20 00:30 72 18 115/77 (90) 95 01/06/20 00:00 20 Mechanical Ventilator 50 01/06/20 00:00 20 Mechanical Ventilator 50 01/06/20 00:00 Mechanical Ventilator 01/06/20 00:00 98.8 78 18 112/75 (87) 94 01/06/20 00:00 68 01/06/20 00:00 50 01/05/20 23:25 87 18 50 01/05/20 23:00 99 9 127/106 (113) 93 01/05/20 22:30 107 18 166/94 (118) 96 01/05/20 22:00 102 10 148/90 (109) 93 01/05/20 22:00 24 Mechanical Ventilator 50 01/05/20 22:00 24 Endotracheal Tube 01/05/20 21:33 20 Mechanical Ventilator 01/05/20 21:32 20 50 01/05/20 21:30 107 12 162/120 (134) 92 01/05/20 21:29 115 25 50 01/05/20 21:00 20 Mechanical Ventilator 50 01/05/20 21:00 109 11 159/99 (119) 92 01/05/20 20:30 119 16 177/115 (135) 92 01/05/20 20:00 50 01/05/20 20:00 18 Mechanical Ventilator 50 01/05/20 20:00 18 Mechanical Ventilator 50 01/05/20 20:00 86 01/05/20 20:00 98.8 121 17 194/114 (140) 92 01/05/20 20:00 Mechanical Ventilator 01/05/20 19:30 124 17 160/110 (127) 92 01/05/20 19:15 119 25 50 01/05/20 19:00 14 Endotracheal Tube 50 01/05/20 19:00 14 Endotracheal Tube 50 01/05/20 19:00 113 14 173/129 (144) 97 01/05/20 18:00 18 Endotracheal Tube 50 01/05/20 18:00 18 Endotracheal Tube 50 01/05/20 18:00 78 18 125/85 (98) 98 01/05/20 17:30 75 18 120/84 (96) 98 01/05/20 17:00 77 18 120/79 (93) 98 01/05/20 17:00 18 Endotracheal Tube 50 01/05/20 17:00 18 Endotracheal Tube 50 01/05/20 17:00 76 18 50 01/05/20 16:30 76 18 121/84 (96) 97 01/05/20 16:19 18 Endotracheal Tube 50 01/05/20 16:00 75 01/05/20 16:00 Mechanical Ventilator 01/05/20 16:00 18 Endotracheal Tube 50 01/05/20 16:00 98.8 79 18 119/80 (93) 97 01/05/20 16:00 50 01/05/20 15:30 85 18 119/81 (94) 97 01/05/20 15:03 90 18 50 01/05/20 15:00 87 18 117/79 (92) 96 01/05/20 15:00 90 18 115/80 (92) 96 01/05/20 15:00 18 Endotracheal Tube 50 01/05/20 15:00 18 Endotracheal Tube 50 01/05/20 14:30 96 18 120/81 (94) 94 01/05/20 14:00 103 18 143/100 (114) 94 01/05/20 14:00 19 Endotracheal Tube 50 01/05/20 14:00 18 Endotracheal Tube 50 01/05/20 13:30 108 13 156/110 (125) 93 01/05/20 13:00 108 11 149/93 (111) 93 01/05/20 13:00 110 22 50 01/05/20 13:00 11 Endotracheal Tube 50 01/05/20 13:00 11 Endotracheal Tube 50 01/05/20 12:30 108 13 155/102 (119) 93 01/05/20 12:00 97.8 107 14 155/104 (121) 94 01/05/20 12:00 50 01/05/20 12:00 108 01/05/20 12:00 Mechanical Ventilator 01/05/20 12:00 14 Endotracheal Tube 50 01/05/20 12:00 14 Endotracheal Tube 50 01/05/20 11:45 106 12 164/93 (116) 94 01/05/20 11:43 26 Endotracheal Tube 50 01/05/20 11:33 26 Endotracheal Tube 50 01/05/20 11:30 111 15 163/108 (126) 94 01/05/20 11:21 106 26 50 01/05/20 11:00 112 15 155/100 (118) 96 01/05/20 11:00 15 Endotracheal Tube 50 01/05/20 11:00 15 Endotracheal Tube 50 Intake and Output 01/05/20 01/06/20 19:00 07:00 Intake Total 1310.559 ml 991 ml Output Total 820 ml 790 ml Balance 490.559 ml 201 ml IV Total 1310.559 ml 991 ml Output Urine Total 820 ml 790 ml General Appearance: no acute distress HEENT: normocephalic Respiratory/Chest: chest wall non-tender, lungs clear Cardiovascular: normal peripheral pulses Abdomen: normal bowel sounds Microbiology Date/Time Source Procedure Growth Status 01/03/20 13:40 Nasopharynx Coronavirus COVID-19 PCR ([facility]) - Final Complete Laboratory Tests 01/05/20 11:04: Arterial Blood pH 7.368, Arterial Blood Partial Pressure CO2 47.2H, Arterial Blood Partial Pressure O2 85.9, Arterial Blood HCO3 26.6H, Arterial Blood Oxygen Saturation 95.9, Arterial Blood Base Excess 0.8, Juan Test Positive 01/06/20 04:36: White Blood Count 11.9H, Red Blood Count 3.64L, Hemoglobin 12.3L, Hematocrit 36.0L, Mean Corpuscular Volume 99, Mean Corpuscular Hemoglobin 33.8H, Mean Corpuscular Hemoglobin Concent 34.2, Red Cell Distribution Width 12.6, Platelet Count 149L, Mean Platelet Volume 5.9L, Neutrophils (%) (Auto) 77.1H, Lymphocytes (%) (Auto) 9.9L, Monocytes (%) (Auto) 10.4H, Eosinophils (%) (Auto) 0.0, Basophils (%) (Auto) 2.6H, Sodium Level 136, Potassium Level 4.0, Chloride Level 102, Carbon Dioxide Level 26, Anion Gap 8, Blood Urea Nitrogen 18, Creatinine 0.9, Estimat Glomerular Filtration Rate > 60, Glucose Level 491#H, Calcium Level 7.6L, Phosphorus Level 3.7, Magnesium Level 2.5H 01/06/20 08:50: Arterial Blood pH 7.341L, Arterial Blood Partial Pressure CO2 55.8*H, Arterial Blood Partial Pressure O2 118.2H, Arterial Blood HCO3 29.5H, Arterial Blood Oxygen Saturation 97.4, Arterial Blood Base Excess 2.6H, Juan Test Positive Current Medications Medications (Trade) Dose Ordered Sig/Samia Route PRN Reason Start Time Stop Time Status Last Admin Dose Admin Acetaminophen (Tylenol) 650 mg Q4H PRN ORAL fever 01/01/20 19:45 01/31/20 19:44 01/02/20 17:51 Acetaminophen (Tylenol) 650 mg Q4H PRN ORAL Mild Pain (Pain Scale 1-3) 01/01/20 19:45 01/31/20 19:44 Acetaminophen (Tylenol) 650 mg Q4H PRN RECTAL Mild Pain (Pain Scale 1-3) 01/01/20 19:45 01/31/20 19:44 Acetaminophen (Tylenol) 650 mg Q4H PRN RECTAL fever 01/01/20 19:45 01/31/20 19:44 Azithromycin 500 mg/Dextrose 275 ml @ 275 mls/hr Q24H IV 01/01/20 21:00 01/06/20 20:59 01/05/20 20:22 Ceftriaxone Sodium 1 gm/ Dextrose 55 ml @ 110 mls/hr Q24H IV 01/01/20 22:00 01/08/20 21:59 01/05/20 21:34 Chlorhexidine Gluconate (Bhavana-Hex 2%) 1 applic DAILY@2000 TOPIC 01/02/20 20:00 04/01/20 19:59 01/05/20 20:27 Dextrose (Dextrose 50%) 25 ml Q30M PRN IV Hypoglycemia 01/01/20 19:45 03/31/20 19:44 Dextrose (Dextrose 50%) 50 ml Q30M PRN IV Hypoglycemia 01/01/20 19:45 03/31/20 19:44 Famotidine (Pepcid I.v.) 20 mg Q12HR IVP 01/01/20 21:00 01/31/20 20:59 01/06/20 08:39 Fentanyl Citrate 2500 mcg/Sodium Chloride 250 ml @ 0 mls/hr Q24H IV 01/02/20 10:20 01/09/20 10:19 01/06/20 04:52 Haloperidol Lactate 5 mg/ Dextrose 56 ml @ 224 mls/hr Q6H PRN IVPB Agitation 01/03/20 10:00 02/17/20 09:59 01/04/20 10:52 Heparin Sodium (Porcine) (Heparin 5000 units/ml) 5,000 units EVERY 12 HOURS SUBQ 01/01/20 21:00 02/15/20 20:59 01/06/20 08:40 Methylprednisolone Sodium Succinate (Solu-MEDROL) 40 mg EVERY 8 HOURS IVP 01/02/20 14:00 04/01/20 13:59 01/06/20 06:00 Midazolam HCl 100 ml @ 0 mls/hr Q24H PRN IV Agitation 01/04/20 11:20 01/11/20 11:19 01/06/20 07:24 Nitroglycerin (Ntg) 0.4 mg Q5M PRN SL Prn Chest Pain 01/01/20 19:45 01/31/20 19:44 Ondansetron HCl (Zofran) 4 mg Q6H PRN IVP Nausea & Vomiting 01/01/20 19:45 01/31/20 19:44 Polyethylene Glycol (Miralax) 17 gm DAILYPRN PRN ORAL Constipation 01/01/20 19:45 01/31/20 19:44 Sodium Phosphate 20 mm/Dextrose/ Sodium Chloride 1,006.6667 ml @ 50 mls/hr Q20H8M IV 01/05/20 14:30 02/04/20 14:29 01/05/20 14:22 Vancomycin HCl (Vanco rx to dose) 1 ea DAILY PRN MISC Per rx protocol 01/03/20 18:15 02/02/20 18:14 Vancomycin/Sodium Chloride 275 ml @ 183.333 mls/hr Q12HR@0600,1800 IVPB 01/04/20 06:00 01/09/20 05:59 01/06/20 05:59 Hardik Medina MD Jan 06, 2020 10:46
--- NOTE | 2020-01-06 11:22 | General Progress Note ---
Assessment/Plan Problem List: (1) Rhabdomyolysis ICD Codes: M62.82 - Rhabdomyolysis SNOMED: 314814186 (2) Elevated liver enzymes ICD Codes: R74.8 - Abnormal levels of other serum enzymes SNOMED: 828982906 (3) Hyperkalemia ICD Codes: E87.5 - Hyperkalemia SNOMED: 74143871 (4) LUDMILA (acute kidney injury) ICD Codes: N17.9 - Acute kidney failure, unspecified SNOMED: 7737355, 16113133 (5) Suspected COVID-19 virus infection ICD Codes: R68.89 - Other general symptoms and signs SNOMED: 759599270 (6) COPD (chronic obstructive pulmonary disease) ICD Codes: J44.9 - Chronic obstructive pulmonary disease, unspecified SNOMED: 16853701 (7) Respiratory failure ICD Codes: J96.90 - Respiratory failure, unspecified, unspecified whether with hypoxia or hypercapnia SNOMED: 688150275 (8) Drug abuse ICD Codes: F19.10 - Other psychoactive substance abuse, uncomplicated SNOMED: 27716518 (9) Staphylococcal septicemia Assessment & Plan: staph hemolyticus likely contaminant ICD Codes: A41.2 - Sepsis due to unspecified staphylococcus SNOMED: 77178808, [id number] Assessment/Plan: He needs sedation, , picc as poor access,pulled out , now fem cath for access + hydration , ludmila and K improving, Staph sepsis likely contaminant Vent care, icu orders reviewed and updated,low phos , will give some glucose and lipids, lasix drip d/w dr johnson, still high risk icu time 40min Subjective ROS Limited/Unobtainable: Yes Allergies: Coded Allergies: UNABLE TO ASSESS (Unverified , 01/01/20) Subjective on vent, sedated, 50% FIO2 Objective Last 24 Hour Vital Signs Date Time Temp Pulse Resp B/P (MAP) Pulse Ox O2 Delivery O2 Flow Rate FiO2 01/06/20 11:13 73 18 50 01/06/20 09:14 75 18 50 01/06/20 08:00 50 01/06/20 08:00 Mechanical Ventilator 01/06/20 07:24 18 Mechanical Ventilator 50 01/06/20 06:48 65 18 50 01/06/20 06:30 100 63 01/06/20 06:30 62 18 113/72 (86) 96 01/06/20 06:15 64 18 109/68 (82) 95 01/06/20 06:06 63 18 50 01/06/20 06:00 64 18 108/68 (81) 94 01/06/20 06:00 18 Mechanical Ventilator 50 01/06/20 06:00 18 Mechanical Ventilator 50 01/06/20 05:30 75 18 106/75 (85) 95 01/06/20 05:00 78 12 117/79 (92) 97 01/06/20 05:00 16 Mechanical Ventilator 50 01/06/20 04:52 18 Mechanical Ventilator 60 01/06/20 04:30 98 11 151/112 (125) 99 01/06/20 04:00 18 Mechanical Ventilator 50 01/06/20 04:00 18 Mechanical Ventilator 50 01/06/20 04:00 66 01/06/20 04:00 98.6 65 18 138/89 (105) 96 01/06/20 04:00 Mechanical Ventilator 01/06/20 04:00 50 01/06/20 03:30 66 18 139/85 (103) 96 01/06/20 03:00 66 18 139/88 (105) 97 01/06/20 03:00 18 Mechanical Ventilator 50 01/06/20 03:00 18 Mechanical Ventilator 50 01/06/20 02:39 65 18 50 01/06/20 02:30 67 18 129/88 (102) 97 01/06/20 02:17 16 Mechanical Ventilator 50 01/06/20 02:17 16 Mechanical Ventilator 50 01/06/20 02:00 20 Mechanical Ventilator 50 01/06/20 02:00 67 18 126/81 (96) 97 01/06/20 01:30 68 18 117/78 (91) 97 01/06/20 01:00 70 18 114/73 (87) 96 01/06/20 01:00 22 Mechanical Ventilator 50 01/06/20 01:00 18 Mechanical Ventilator 50 01/06/20 00:53 72 18 50 01/06/20 00:30 72 18 115/77 (90) 95 01/06/20 00:00 20 Mechanical Ventilator 50 01/06/20 00:00 20 Mechanical Ventilator 50 01/06/20 00:00 Mechanical Ventilator 01/06/20 00:00 98.8 78 18 112/75 (87) 94 01/06/20 00:00 68 01/06/20 00:00 50 01/05/20 23:25 87 18 50 01/05/20 23:00 99 9 127/106 (113) 93 01/05/20 22:30 107 18 166/94 (118) 96 01/05/20 22:00 102 10 148/90 (109) 93 01/05/20 22:00 24 Mechanical Ventilator 50 01/05/20 22:00 24 Endotracheal Tube 01/05/20 21:33 20 Mechanical Ventilator 01/05/20 21:32 20 50 01/05/20 21:30 107 12 162/120 (134) 92 01/05/20 21:29 115 25 50 01/05/20 21:00 20 Mechanical Ventilator 50 01/05/20 21:00 109 11 159/99 (119) 92 01/05/20 20:30 119 16 177/115 (135) 92 01/05/20 20:00 50 01/05/20 20:00 18 Mechanical Ventilator 50 01/05/20 20:00 18 Mechanical Ventilator 50 01/05/20 20:00 86 01/05/20 20:00 98.8 121 17 194/114 (140) 92 01/05/20 20:00 Mechanical Ventilator 01/05/20 19:30 124 17 160/110 (127) 92 01/05/20 19:15 119 25 50 01/05/20 19:00 14 Endotracheal Tube 50 01/05/20 19:00 14 Endotracheal Tube 50 01/05/20 19:00 113 14 173/129 (144) 97 01/05/20 18:00 18 Endotracheal Tube 50 01/05/20 18:00 18 Endotracheal Tube 50 01/05/20 18:00 78 18 125/85 (98) 98 01/05/20 17:30 75 18 120/84 (96) 98 01/05/20 17:00 77 18 120/79 (93) 98 01/05/20 17:00 18 Endotracheal Tube 50 01/05/20 17:00 18 Endotracheal Tube 50 01/05/20 17:00 76 18 50 01/05/20 16:30 76 18 121/84 (96) 97 01/05/20 16:19 18 Endotracheal Tube 50 01/05/20 16:00 75 01/05/20 16:00 Mechanical Ventilator 4/2/20 16:00 18 Endotracheal Tube 50 01/05/20 16:00 98.8 79 18 119/80 (93) 97 01/05/20 16:00 50 01/05/20 15:30 85 18 119/81 (94) 97 01/05/20 15:03 90 18 50 01/05/20 15:00 87 18 117/79 (92) 96 01/05/20 15:00 90 18 115/80 (92) 96 01/05/20 15:00 18 Endotracheal Tube 50 01/05/20 15:00 18 Endotracheal Tube 50 01/05/20 14:30 96 18 120/81 (94) 94 01/05/20 14:00 103 18 143/100 (114) 94 01/05/20 14:00 19 Endotracheal Tube 50 01/05/20 14:00 18 Endotracheal Tube 50 01/05/20 13:30 108 13 156/110 (125) 93 01/05/20 13:00 108 11 149/93 (111) 93 01/05/20 13:00 110 22 50 01/05/20 13:00 11 Endotracheal Tube 50 01/05/20 13:00 11 Endotracheal Tube 50 01/05/20 12:30 108 13 155/102 (119) 93 01/05/20 12:00 97.8 107 14 155/104 (121) 94 01/05/20 12:00 50 01/05/20 12:00 108 01/05/20 12:00 Mechanical Ventilator 01/05/20 12:00 14 Endotracheal Tube 50 01/05/20 12:00 14 Endotracheal Tube 50 01/05/20 11:45 106 12 164/93 (116) 94 01/05/20 11:43 26 Endotracheal Tube 50 01/05/20 11:33 26 Endotracheal Tube 50 01/05/20 11:30 111 15 163/108 (126) 94 01/05/20 11:21 106 26 50 Intake and Output 01/05/20 01/06/20 19:00 07:00 Intake Total 1310.559 ml 991 ml Output Total 820 ml 790 ml Balance 490.559 ml 201 ml IV Total 1310.559 ml 991 ml Output Urine Total 820 ml 790 ml Laboratory Tests 01/06/20 04:36: White Blood Count 11.9H, Red Blood Count 3.64L, Hemoglobin 12.3L, Hematocrit 36.0L, Mean Corpuscular Volume 99, Mean Corpuscular Hemoglobin 33.8H, Mean Corpuscular Hemoglobin Concent 34.2, Red Cell Distribution Width 12.6, Platelet Count 149L, Mean Platelet Volume 5.9L, Neutrophils (%) (Auto) 77.1H, Lymphocytes (%) (Auto) 9.9L, Monocytes (%) (Auto) 10.4H, Eosinophils (%) (Auto) 0.0, Basophils (%) (Auto) 2.6H, Sodium Level 136, Potassium Level 4.0, Chloride Level 102, Carbon Dioxide Level 26, Anion Gap 8, Blood Urea Nitrogen 18, Creatinine 0.9, Estimat Glomerular Filtration Rate > 60, Glucose Level 491#H, Calcium Level 7.6L, Phosphorus Level 3.7, Magnesium Level 2.5H 01/06/20 08:50: Arterial Blood pH 7.341L, Arterial Blood Partial Pressure CO2 55.8*H, Arterial Blood Partial Pressure O2 118.2H, Arterial Blood HCO3 29.5H, Arterial Blood Oxygen Saturation 97.4, Arterial Blood Base Excess 2.6H, Juan Test Positive Height (Feet): 5 Height (Inches): 8.00 Weight (Pounds): 188 General Appearance: other - sedated on vent EENT: other - eyees closed Cardiovascular: regular rhythm Respiratory/Chest: rhonchi - bilaterally Abdomen: non tender Edema: no edema noted Arm (L), no edema noted Arm (R), no edema noted Leg (L), no edema noted Leg (R), no edema noted Pedal (L), no edema noted Pedal (R), no edema noted Generalized Francois Dickey MD Jan 06, 2020 11:21
[2020-01-06] MEDS: NovoLOG Insulin Flexpen SUBQ SCH ×3 (11:30→20:59)
[2020-01-06] MEDS: SODIUM PHOSPHATE IV SCH (12:59)
[2020-01-06] MEDS: SOD CHL IV SCH (12:59)
[2020-01-06] MEDS: DEXTROSE IV SCH (12:59)
--- NOTE | 2020-01-06 15:11 | Diagnostic Imaging Report ---
Indication: Dyspnea Comparison: 01/05/2020 A single view chest radiograph was obtained. Findings: Patchy infiltrates demonstrated bilaterally with the mostly reticular appearing densities present. Heart size is normal. Endotracheal tube is in good position unchanged. IMPRESSION: No significant change. Bilateral infiltrate suspected
--- NOTE | 2020-01-06 19:48 | Surgery Progress Note ---
Surgery Progress Note Subjective Procedure Performed Left femoral triple-lumen venous central catheter insertion Additional Comments labs improving exam stable in ICU on support Objective Last 24 Hour Vital Signs Date Time Temp Pulse Resp B/P (MAP) Pulse Ox O2 Delivery O2 Flow Rate FiO2 01/06/20 19:00 83 18 129/79 (96) 94 01/06/20 19:00 18 Mechanical Ventilator 40 01/06/20 19:00 18 Mechanical Ventilator 40 01/06/20 18:55 101 22 50 01/06/20 18:30 104 13 158/92 (114) 94 01/06/20 18:26 18 Mechanical Ventilator 40 01/06/20 18:00 100 12 169/76 (107) 93 01/06/20 17:30 94 18 168/113 (131) 97 01/06/20 17:00 18 Mechanical Ventilator 40 01/06/20 17:00 18 Mechanical Ventilator 40 01/06/20 17:00 111 15 148/111 (123) 97 01/06/20 16:51 118 18 50 01/06/20 16:30 116 19 172/107 (128) 95 01/06/20 16:25 20 40 01/06/20 16:00 117 01/06/20 16:00 99.0 112 20 159/102 (121) 97 01/06/20 16:00 50 01/06/20 16:00 18 Mechanical Ventilator 40 01/06/20 16:00 Mechanical Ventilator 01/06/20 15:30 101 13 183/133 (150) 94 01/06/20 15:00 89 18 125/84 (98) 94 01/06/20 15:00 18 Non-Rebreather 40 01/06/20 14:42 109 18 50 01/06/20 14:30 109 11 151/117 (128) 95 01/06/20 14:00 18 Mechanical Ventilator 40 01/06/20 14:00 18 Mechanical Ventilator 40 01/06/20 14:00 104 13 157/111 (126) 99 01/06/20 13:00 18 Mechanical Ventilator 40 01/06/20 13:00 18 Mechanical Ventilator 40 01/06/20 13:00 62 18 130/82 (98) 99 01/06/20 12:56 20 Mechanical Ventilator 40 01/06/20 12:55 18 Mechanical Ventilator 50 01/06/20 12:50 61 18 50 01/06/20 12:30 61 18 125/82 (96) 98 01/06/20 12:19 59 01/06/20 12:00 Mechanical Ventilator 01/06/20 12:00 18 Mechanical Ventilator 50 01/06/20 12:00 18 Mechanical Ventilator 50 01/06/20 12:00 98.7 63 18 129/80 (96) 98 01/06/20 12:00 50 01/06/20 11:30 61 18 117/75 (89) 97 01/06/20 11:13 73 18 50 01/06/20 11:00 65 18 115/74 (88) 96 01/06/20 11:00 18 Mechanical Ventilator 50 01/06/20 11:00 18 Mechanical Ventilator 50 01/06/20 10:30 75 18 121/83 (96) 96 01/06/20 10:00 81 17 121/72 (88) 95 01/06/20 10:00 20 Mechanical Ventilator 50 01/06/20 10:00 20 Mechanical Ventilator 50 01/06/20 09:30 78 16 138/91 (107) 99 01/06/20 09:14 75 18 50 01/06/20 09:00 98 18 146/87 (106) 100 01/06/20 09:00 20 Mechanical Ventilator 50 01/06/20 09:00 20 Mechanical Ventilator 50 01/06/20 08:30 61 18 141/84 (103) 97 01/06/20 08:00 97.9 64 18 131/80 (97) 97 01/06/20 08:00 50 01/06/20 08:00 20 Mechanical Ventilator 50 01/06/20 08:00 20 Mechanical Ventilator 50 01/06/20 08:00 Mechanical Ventilator 01/06/20 07:30 62 18 118/78 (91) 97 01/06/20 07:24 18 Mechanical Ventilator 50 01/06/20 07:22 64 01/06/20 07:00 20 Mechanical Ventilator 50 01/06/20 07:00 20 Mechanical Ventilator 50 01/06/20 07:00 74 16 161/106 (124) 98 01/06/20 06:48 65 18 50 01/06/20 06:30 100 63 01/06/20 06:30 62 18 113/72 (86) 96 01/06/20 06:15 64 18 109/68 (82) 95 01/06/20 06:06 63 18 50 4/3/20 06:00 64 18 108/68 (81) 94 01/06/20 06:00 18 Mechanical Ventilator 50 01/06/20 06:00 18 Mechanical Ventilator 50 01/06/20 05:30 75 18 106/75 (85) 95 01/06/20 05:00 78 12 117/79 (92) 97 01/06/20 05:00 16 Mechanical Ventilator 50 01/06/20 04:52 18 Mechanical Ventilator 60 01/06/20 04:30 98 11 151/112 (125) 99 01/06/20 04:00 18 Mechanical Ventilator 50 01/06/20 04:00 18 Mechanical Ventilator 50 01/06/20 04:00 66 01/06/20 04:00 98.6 65 18 138/89 (105) 96 01/06/20 04:00 Mechanical Ventilator 01/06/20 04:00 50 01/06/20 03:30 66 18 139/85 (103) 96 01/06/20 03:00 66 18 139/88 (105) 97 01/06/20 03:00 18 Mechanical Ventilator 50 01/06/20 03:00 18 Mechanical Ventilator 50 01/06/20 02:39 65 18 50 01/06/20 02:30 67 18 129/88 (102) 97 01/06/20 02:17 16 Mechanical Ventilator 50 01/06/20 02:17 16 Mechanical Ventilator 50 01/06/20 02:00 20 Mechanical Ventilator 50 01/06/20 02:00 67 18 126/81 (96) 97 01/06/20 01:30 68 18 117/78 (91) 97 01/06/20 01:00 70 18 114/73 (87) 96 01/06/20 01:00 22 Mechanical Ventilator 50 01/06/20 01:00 18 Mechanical Ventilator 50 01/06/20 00:53 72 18 50 01/06/20 00:30 72 18 115/77 (90) 95 01/06/20 00:00 20 Mechanical Ventilator 50 01/06/20 00:00 20 Mechanical Ventilator 50 01/06/20 00:00 Mechanical Ventilator 01/06/20 00:00 98.8 78 18 112/75 (87) 94 01/06/20 00:00 68 01/06/20 00:00 50 01/05/20 23:25 87 18 50 01/05/20 23:00 99 9 127/106 (113) 93 01/05/20 22:30 107 18 166/94 (118) 96 01/05/20 22:00 102 10 148/90 (109) 93 01/05/20 22:00 24 Mechanical Ventilator 50 01/05/20 22:00 24 Endotracheal Tube 01/05/20 21:33 20 Mechanical Ventilator 01/05/20 21:32 20 50 01/05/20 21:30 107 12 162/120 (134) 92 01/05/20 21:29 115 25 50 01/05/20 21:00 20 Mechanical Ventilator 50 01/05/20 21:00 109 11 159/99 (119) 92 01/05/20 20:30 119 16 177/115 (135) 92 01/05/20 20:00 50 01/05/20 20:00 18 Mechanical Ventilator 50 01/05/20 20:00 18 Mechanical Ventilator 50 01/05/20 20:00 86 01/05/20 20:00 98.8 121 17 194/114 (140) 92 01/05/20 20:00 Mechanical Ventilator I&O Intake and Output 01/05/20 01/06/20 19:00 07:00 Intake Total 1310.559 ml 1041 ml Output Total 820 ml 840 ml Balance 490.559 ml 201 ml IV Total 1310.559 ml 1041 ml Output Urine Total 820 ml 840 ml Dressing: other Wound: other Drains: other Cardiovascular: RSR Respiratory: decreased breath sounds Abdomen: soft, non-tender, present bowel sounds Extremities: no cyanosis Laboratory Tests Test 01/06/20 04:36 01/06/20 08:50 01/06/20 16:56 White Blood Count 11.9 K/UL (4.8-10.8) H Red Blood Count 3.64 M/UL (4.70-6.10) L Hemoglobin 12.3 G/DL (14.2-18.0) L Hematocrit 36.0 % (42.0-52.0) L Mean Corpuscular Volume 99 FL (80-99) Mean Corpuscular Hemoglobin 33.8 PG (27.0-31.0) H Mean Corpuscular Hemoglobin Concent 34.2 G/DL (32.0-36.0) Red Cell Distribution Width 12.6 % (11.6-14.8) Platelet Count 149 K/UL (150-450) L Mean Platelet Volume 5.9 FL (6.5-10.1) L Neutrophils (%) (Auto) 77.1 % (45.0-75.0) H Lymphocytes (%) (Auto) 9.9 % (20.0-45.0) L Monocytes (%) (Auto) 10.4 % (1.0-10.0) H Eosinophils (%) (Auto) 0.0 % (0.0-3.0) Basophils (%) (Auto) 2.6 % (0.0-2.0) H Sodium Level 136 MMOL/L (136-145) Potassium Level 4.0 MMOL/L (3.5-5.1) Chloride Level 102 MMOL/L (98-107) Carbon Dioxide Level 26 MMOL/L (21-32) Anion Gap 8 mmol/L (5-15) Blood Urea Nitrogen 18 mg/dL (7-18) Creatinine 0.9 MG/DL (0.55-1.30) Estimat Glomerular Filtration Rate > 60 mL/min (>60) Glucose Level 491 MG/DL (74-106) #H Calcium Level 7.6 MG/DL (8.5-10.1) L Phosphorus Level 3.7 MG/DL (2.5-4.9) Magnesium Level 2.5 MG/DL (1.8-2.4) H Arterial Blood pH 7.341 (7.350-7.450) Arterial Blood Partial Pressure CO2 55.8 mmHg (35.0-45.0) *H Arterial Blood Partial Pressure O2 118.2 mmHg (75.0-100.0) H Arterial Blood HCO3 29.5 mmol/L (22.0-26.0) H Arterial Blood Oxygen Saturation 97.4 % (95-100) Arterial Blood Base Excess 2.6 (-2-2) H Juan Test Positive Vancomycin Level Trough 7.4 ug/mL (5.0-12.0) Plan Problems: (1) COPD (chronic obstructive pulmonary disease) Assessment & Plan: As per pulmonology Continue vent support (2) Hyperkalemia (3) Respiratory failure Assessment & Plan: Intubated intensive care unit on vent support Unable to be weaned at this time Chest x-ray noted Sedation (4) Rhabdomyolysis Assessment & Plan: IV fluid hydration Trend labs Improving (5) Elevated liver enzymes Assessment & Plan: Likely related to hypotension expressiveness originally. Improving with resuscitation. Likely shock. Hold on ultrasound tentatively Labs improving (6) LUDMILA (acute kidney injury) (7) Suspected COVID-19 virus infection Assessment & Plan: Continues to be ill appearing Pending swabs results initially PICC line placed and patient receiving medications through this but patient was able to pull through his restraints and with movement PICC line was dislodged patient unable to receive sedation medications and requiring urgent central venous catheter insertion. Yousif Bates Jan 06, 2020 19:48
[2020-01-06] MEDS: Dyna-Hex 2% Top Sol 2oz TOPIC SCH (19:56)
[2020-01-06] MEDS: cefTRIAXone 1 GM in D5W 55 ML IV SCH (22:13)
[2020-01-07] VITALS (41 sets, daily range): BP systolic 115–198; BP diastolic 11–159
[2020-01-07] MEDS: fentaNYL Citrate 2500mcg in NS 250ml IV SCH ×3 (01:23→21:42)
[2020-01-07] MEDS: Versed 50mg/D5W 100ml 100 ML IV PRN ×4 (04:35→23:54)
[2020-01-07] MEDS: Vancomycin 1.5gm/NS Premix q24h IVPB SCH ×2 (05:47→17:08)
[2020-01-07] MEDS: Solu-MEDROL 40mg Inj IVP SCH ×3 (05:47→21:42)
[2020-01-07] MEDS: NovoLOG Insulin Flexpen SUBQ SCH ×4 (06:31→21:10)
[2020-01-07] MEDS: SOD CHL IV SCH (07:02)
[2020-01-07] MEDS: SODIUM PHOSPHATE IV SCH (07:02)
[2020-01-07] MEDS: DEXTROSE IV SCH (07:02)
[2020-01-07 07:30] LABS: ANION GAP 6 mmol/L (5-15); BLOOD UREA NITROGEN 18 mg/dL (7-18); CALCIUM 7.9 MG/DL (8.5-10.1); CARBON DIOXIDE 34 MMOL/L (21-32); CHLORIDE 104 MMOL/L (98-107); CREATININE 0.9 MG/DL (0.55-1.30); PHOSPHORUS 2.8 MG/DL (2.5-4.9); POTASSIUM 3.4 MMOL/L (3.5-5.1); SODIUM 144 MMOL/L (136-145)
[2020-01-07 07:34] LABS: BASOPHILS % (AUTO) 1.4 % (0.0-2.0); HEMATOCRIT 34.7 % (42.0-52.0); HEMOGLOBIN 11.8 G/DL (14.2-18.0); LYMPHOCYTES % (AUTO) 10.5 % (20.0-45.0); MEAN CORPUSCULAR VOLUME 96 FL (80-99); MONOCYTES % (AUTO) 11.1 % (1.0-10.0); PLATELET COUNT 144 K/UL (150-450); RED BLOOD COUNT 3.61 M/UL (4.70-6.10); RED CELL DISTRIBUTION WIDTH 11.9 % (11.6-14.8); WHITE BLOOD COUNT 10.5 K/UL (4.8-10.8)
[2020-01-07] MEDS: Heparin 5000 units/ml inj SUBQ SCH ×2 (09:00→20:59)
--- NOTE | 2020-01-07 12:04 | Pulmonology Progress Note ---
Assessment/Plan Assessment/Plan IMPRESSION: 1. Hyperkalemia. 2. Respiratory failure. 3. Marked leukocytosis. 4. Chronic obstructive pulmonary disease. 5. History of hepatitis C. DISCUSSION: 1. Will adjust vent; continue AC mode 2. Continue IV fluids. WIll start diuresis 3. Avoid potassium. 4. Continue azithromycin, Rocephin, Pepcid, Fentanyl and Versed 5. DVT prophylaxis. 6. Check AM labs and ABG 7. Solu-Medrol 40 IV q.6 h. 8. Broad antibiotic coverage. 9. I will follow carefully. Wean as tolerated. Will decrease sedation Hope to wean Hardik Medina M.D. Subjective Interval Events: Remains intubated Constitutional: Reports: no symptoms HEENT: Repors: no symptoms Respiratory: Reports: no symptoms Cardiovascular: Reports: no symptoms Gastrointestinal/Abdominal: Reports: no symptoms Genitourinary: Reports: no symptoms Allergies: Coded Allergies: UNABLE TO ASSESS (Unverified , 01/01/20) Objective Last 24 Hour Vital Signs Date Time Temp Pulse Resp B/P (MAP) Pulse Ox O2 Delivery O2 Flow Rate FiO2 01/07/20 11:08 91 24 50 01/07/20 09:43 12 Mechanical Ventilator 40 01/07/20 09:43 12 Mechanical Ventilator 40 01/07/20 09:00 20 Mechanical Ventilator 40 01/07/20 09:00 18 Mechanical Ventilator 40 01/07/20 08:56 75 18 50 01/07/20 08:00 Mechanical Ventilator 01/07/20 08:00 18 Mechanical Ventilator 40 01/07/20 08:00 18 Mechanical Ventilator 40 01/07/20 08:00 40 01/07/20 07:14 75 18 50 01/07/20 07:02 18 Mechanical Ventilator 40 01/07/20 07:02 18 Mechanical Ventilator 40 01/07/20 07:00 66 18 119/74 (89) 96 01/07/20 06:30 66 18 01/07/20 06:00 78 16 141/83 (102) 95 01/07/20 06:00 16 Mechanical Ventilator 40 01/07/20 06:00 16 Mechanical Ventilator 40 01/07/20 05:26 67 18 50 01/07/20 05:00 18 Mechanical Ventilator 40 01/07/20 05:00 18 Mechanical Ventilator 40 01/07/20 05:00 68 18 119/74 (89) 96 01/07/20 04:35 18 Mechanical Ventilator 40 01/07/20 04:34 18 Mechanical Ventilator 40 01/07/20 04:00 98.8 84 18 122/75 (91) 99 01/07/20 04:00 18 Mechanical Ventilator 40 01/07/20 04:00 18 Mechanical Ventilator 40 01/07/20 04:00 96 01/07/20 04:00 Mechanical Ventilator 01/07/20 04:00 40 01/07/20 03:29 99 24 50 01/07/20 03:00 18 Mechanical Ventilator 40 01/07/20 03:00 18 Mechanical Ventilator 40 01/07/20 03:00 71 18 126/77 (93) 96 01/07/20 02:00 18 Mechanical Ventilator 40 01/07/20 02:00 18 Mechanical Ventilator 40 01/07/20 02:00 85 16 134/90 (105) 94 01/07/20 01:23 18 Mechanical Ventilator 40 01/07/20 01:00 75 18 115/81 (92) 94 01/07/20 01:00 18 Mechanical Ventilator 40 01/07/20 01:00 18 Mechanical Ventilator 40 01/07/20 00:40 100 19 50 01/07/20 00:00 18 Mechanical Ventilator 40 01/07/20 00:00 18 Mechanical Ventilator 40 01/07/20 00:00 72 01/07/20 00:00 Mechanical Ventilator 01/07/20 00:00 99.0 94 18 150/94 (112) 95 01/07/20 00:00 40 01/06/20 23:32 18 Mechanical Ventilator 40 01/06/20 23:31 18 Mechanical Ventilator 40 01/06/20 23:00 81 18 121/81 (94) 95 01/06/20 23:00 18 Mechanical Ventilator 40 01/06/20 23:00 18 Mechanical Ventilator 40 01/06/20 22:36 92 21 50 01/06/20 22:00 18 Mechanical Ventilator 40 01/06/20 22:00 18 Mechanical Ventilator 40 01/06/20 22:00 67 18 121/72 (88) 94 01/06/20 21:00 86 18 135/86 (102) 95 01/06/20 21:00 18 Mechanical Ventilator 40 01/06/20 21:00 18 Mechanical Ventilator 40 01/06/20 20:00 40 01/06/20 20:00 98.7 70 18 125/84 (98) 94 01/06/20 20:00 Mechanical Ventilator 01/06/20 20:00 71 01/06/20 20:00 18 Mechanical Ventilator 40 01/06/20 20:00 18 Mechanical Ventilator 40 01/06/20 19:00 83 18 129/79 (96) 94 01/06/20 19:00 18 Mechanical Ventilator 40 01/06/20 19:00 18 Mechanical Ventilator 40 01/06/20 18:55 101 22 50 01/06/20 18:30 104 13 158/92 (114) 94 01/06/20 18:26 18 Mechanical Ventilator 40 01/06/20 18:00 100 12 169/76 (107) 93 01/06/20 17:30 94 18 168/113 (131) 97 01/06/20 17:00 18 Mechanical Ventilator 40 01/06/20 17:00 18 Mechanical Ventilator 40 01/06/20 17:00 111 15 148/111 (123) 97 01/06/20 16:51 118 18 50 01/06/20 16:30 116 19 172/107 (128) 95 01/06/20 16:25 20 40 01/06/20 16:00 117 01/06/20 16:00 99.0 112 20 159/102 (121) 97 01/06/20 16:00 50 01/06/20 16:00 18 Mechanical Ventilator 40 01/06/20 16:00 Mechanical Ventilator 01/06/20 15:30 101 13 183/133 (150) 94 01/06/20 15:00 89 18 125/84 (98) 94 01/06/20 15:00 18 Non-Rebreather 40 01/06/20 14:42 109 18 50 01/06/20 14:30 109 11 151/117 (128) 95 01/06/20 14:00 18 Mechanical Ventilator 40 01/06/20 14:00 18 Mechanical Ventilator 40 01/06/20 14:00 104 13 157/111 (126) 99 01/06/20 13:00 18 Mechanical Ventilator 40 01/06/20 13:00 18 Mechanical Ventilator 40 01/06/20 13:00 62 18 130/82 (98) 99 01/06/20 12:56 20 Mechanical Ventilator 40 01/06/20 12:55 18 Mechanical Ventilator 50 01/06/20 12:50 61 18 50 01/06/20 12:30 61 18 125/82 (96) 98 01/06/20 12:19 59 Intake and Output 01/06/20 01/07/20 19:00 07:00 Intake Total 874.7 ml 1783.750 ml Output Total 1500 ml 4250 ml Balance -625.3 ml -2466.250 ml IV Total 874.7 ml 1783.750 ml Output Urine Total 1500 ml 4250 ml General Appearance: no acute distress HEENT: normocephalic Respiratory/Chest: chest wall non-tender, lungs clear Cardiovascular: normal peripheral pulses Microbiology Date/Time Source Procedure Growth Status 01/05/20 16:30 Nasopharynx Coronavirus COVID-19 PCR ([facility]) - Final Complete Laboratory Tests 01/06/20 16:56: Vancomycin Level Trough 7.4 01/07/20 06:15: White Blood Count 10.5, Red Blood Count 3.61L, Hemoglobin 11.8L, Hematocrit 34.7L, Mean Corpuscular Volume 96, Mean Corpuscular Hemoglobin 32.8H, Mean Corpuscular Hemoglobin Concent 34.1, Red Cell Distribution Width 11.9, Platelet Count 144L, Mean Platelet Volume 6.2L, Neutrophils (%) (Auto) 77.0H, Lymphocytes (%) (Auto) 10.5L, Monocytes (%) (Auto) 11.1H, Eosinophils (%) (Auto ) 0.0, Basophils (%) (Auto) 1.4, Sodium Level 144, Potassium Level 3.4L, Chloride Level 104, Carbon Dioxide Level 34H, Anion Gap 6, Blood Urea Nitrogen 18, Creatinine 0.9, Estimat Glomerular Filtration Rate > 60, Glucose Level 176#H , Calcium Level 7.9L, Phosphorus Level 2.8 01/07/20 11:00: Arterial Blood pH 7.438, Arterial Blood Partial Pressure CO2 52.0H, Arterial Blood Partial Pressure O2 85.1, Arterial Blood HCO3 34.4H, Arterial Blood Oxygen Saturation 96.1, Arterial Blood Base Excess 8.6H, Juan Test Positive Current Medications Medications (Trade) Dose Ordered Sig/Samia Route PRN Reason Start Time Stop Time Status Last Admin Dose Admin Acetaminophen (Tylenol) 650 mg Q4H PRN ORAL fever 01/01/20 19:45 01/31/20 19:44 01/02/20 17:51 Acetaminophen (Tylenol) 650 mg Q4H PRN ORAL Mild Pain (Pain Scale 1-3) 01/01/20 19:45 01/31/20 19:44 Acetaminophen (Tylenol) 650 mg Q4H PRN RECTAL Mild Pain (Pain Scale 1-3) 01/01/20 19:45 01/31/20 19:44 Acetaminophen (Tylenol) 650 mg Q4H PRN RECTAL fever 01/01/20 19:45 01/31/20 19:44 Ceftriaxone Sodium 1 gm/ Dextrose 55 ml @ 110 mls/hr Q24H IV 01/01/20 22:00 01/12/20 21:59 01/06/20 22:13 Chlorhexidine Gluconate (Bhavana-Hex 2%) 1 applic DAILY@2000 TOPIC 01/02/20 20:00 04/01/20 19:59 01/06/20 19:56 Dextrose (Dextrose 50%) 25 ml Q30M PRN IV Hypoglycemia 01/06/20 11:30 04/05/20 11:29 Dextrose (Dextrose 50%) 50 ml Q30M PRN IV Hypoglycemia 01/06/20 11:30 04/05/20 11:29 Famotidine (Pepcid I.v.) 20 mg Q12HR IVP 01/01/20 21:00 01/31/20 20:59 01/07/20 09:29 Fentanyl Citrate 2500 mcg/Sodium Chloride 250 ml @ 0 mls/hr Q24H IV 01/02/20 10:20 01/09/20 10:19 01/07/20 09:43 Furosemide 100 mg/ Dextrose 100 ml @ 7.5 mls/hr [id number] IV 01/06/20 11:00 01/07/20 14:00 01/07/20 01:18 Furosemide 100 mg/ Dextrose 100 ml @ 7.5 mls/hr [id number] IV 01/07/20 14:00 02/06/20 13:59 Haloperidol Lactate 5 mg/ Dextrose 56 ml @ 224 mls/hr Q6H PRN IVPB Agitation 01/03/20 10:00 02/17/20 09:59 01/04/20 10:52 Heparin Sodium (Porcine) (Heparin 5000 units/ml) 5,000 units EVERY 12 HOURS SUBQ 01/01/20 21:00 02/15/20 20:59 01/06/20 20:42 Insulin Aspart (NovoLOG) BEFORE MEALS AND HS SUBQ 01/06/20 11:30 04/05/20 11:29 01/07/20 11:29 Methylprednisolone Sodium Succinate (Solu-MEDROL) 40 mg EVERY 8 HOURS IVP 01/02/20 14:00 04/01/20 13:59 01/07/20 05:47 Midazolam HCl 100 ml @ 0 mls/hr Q24H PRN IV Agitation 01/04/20 11:20 01/11/20 11:19 01/07/20 09:43 Nitroglycerin (Ntg) 0.4 mg Q5M PRN SL Prn Chest Pain 01/01/20 19:45 01/31/20 19:44 Ondansetron HCl (Zofran) 4 mg Q6H PRN IVP Nausea & Vomiting 01/01/20 19:45 01/31/20 19:44 Polyethylene Glycol (Miralax) 17 gm DAILYPRN PRN ORAL Constipation 01/01/20 19:45 01/31/20 19:44 Potassium Chloride 100 ml @ 100 mls/hr BID IVPB 01/06/20 11:30 04/05/20 11:29 01/07/20 09:29 Sodium Phosphate 20 mm/Dextrose/ Sodium Chloride 1,006.6667 ml @ 50 mls/hr Q20H8M IV 01/05/20 14:30 02/04/20 14:29 01/07/20 07:02 Vancomycin HCl (Vanco rx to dose) 1 ea DAILY PRN MISC Per rx protocol 01/03/20 18:15 02/02/20 18:14 Vancomycin/Sodium Chloride 275 ml @ 137.5 mls/ hr Q12H IVPB 01/07/20 06:00 01/12/20 05:59 01/07/20 05:47 Hardik Medina MD Jan 07, 2020 12:04
[2020-01-07] MEDS ORDERED: NS 275ml ONE (12:38)
--- NOTE | 2020-01-07 14:32 | Surgery Progress Note ---
Surgery Progress Note Subjective Procedure Performed Left femoral triple-lumen venous central catheter insertion Additional Comments more responsive labs improved leukocytosis resolved no n/v//f/c weaning off vent. doing better Objective Last 24 Hour Vital Signs Date Time Temp Pulse Resp B/P (MAP) Pulse Ox O2 Delivery O2 Flow Rate FiO2 01/07/20 14:21 181/116 01/07/20 13:03 102 20 40 01/07/20 13:00 40 01/07/20 12:00 16 Mechanical Ventilator 40 01/07/20 12:00 16 Mechanical Ventilator 40 01/07/20 12:00 93 01/07/20 12:00 Mechanical Ventilator 01/07/20 12:00 40 01/07/20 11:39 100 17 177/106 (129) 97 01/07/20 11:30 99 15 181/111 (134) 97 01/07/20 11:08 91 24 50 01/07/20 11:00 16 Mechanical Ventilator 40 01/07/20 11:00 16 Mechanical Ventilator 40 01/07/20 11:00 101 14 153/105 (121) 97 01/07/20 10:30 102 13 180/115 (136) 97 01/07/20 10:00 16 Mechanical Ventilator 40 01/07/20 10:00 16 Mechanical Ventilator 40 01/07/20 10:00 101 12 155/111 (126) 98 01/07/20 09:43 12 Mechanical Ventilator 40 01/07/20 09:43 12 Mechanical Ventilator 40 01/07/20 09:42 16 Mechanical Ventilator 40 01/07/20 09:42 16 Mechanical Ventilator 40 01/07/20 09:30 101 15 159/120 (133) 97 01/07/20 09:00 84 17 160/97 (118) 99 01/07/20 09:00 20 Mechanical Ventilator 40 01/07/20 09:00 18 Mechanical Ventilator 40 01/07/20 08:56 75 18 50 01/07/20 08:30 65 18 120/72 (88) 95 01/07/20 08:00 Mechanical Ventilator 01/07/20 08:00 18 Mechanical Ventilator 40 01/07/20 08:00 18 Mechanical Ventilator 40 01/07/20 08:00 98.5 65 18 121/73 (89) 96 01/07/20 08:00 40 01/07/20 08:00 65 01/07/20 07:30 67 18 121/74 (90) 96 01/07/20 07:14 75 18 50 01/07/20 07:02 18 Mechanical Ventilator 40 01/07/20 07:02 18 Mechanical Ventilator 40 01/07/20 07:00 66 18 119/74 (89) 96 01/07/20 06:30 66 18 01/07/20 06:00 78 16 141/83 (102) 95 01/07/20 06:00 16 Mechanical Ventilator 40 01/07/20 06:00 16 Mechanical Ventilator 40 01/07/20 05:26 67 18 50 01/07/20 05:00 18 Mechanical Ventilator 40 01/07/20 05:00 18 Mechanical Ventilator 40 01/07/20 05:00 68 18 119/74 (89) 96 01/07/20 04:35 18 Mechanical Ventilator 40 01/07/20 04:34 18 Mechanical Ventilator 40 01/07/20 04:00 98.8 84 18 122/75 (91) 99 01/07/20 04:00 18 Mechanical Ventilator 40 01/07/20 04:00 18 Mechanical Ventilator 40 01/07/20 04:00 96 01/07/20 04:00 Mechanical Ventilator 01/07/20 04:00 40 01/07/20 03:29 99 24 50 01/07/20 03:00 18 Mechanical Ventilator 40 01/07/20 03:00 18 Mechanical Ventilator 40 01/07/20 03:00 71 18 126/77 (93) 96 01/07/20 02:00 18 Mechanical Ventilator 40 01/07/20 02:00 18 Mechanical Ventilator 40 01/07/20 02:00 85 16 134/90 (105) 94 01/07/20 01:23 18 Mechanical Ventilator 40 01/07/20 01:00 75 18 115/81 (92) 94 01/07/20 01:00 18 Mechanical Ventilator 40 01/07/20 01:00 18 Mechanical Ventilator 40 01/07/20 00:40 100 19 50 01/07/20 00:00 18 Mechanical Ventilator 40 01/07/20 00:00 18 Mechanical Ventilator 40 01/07/20 00:00 72 01/07/20 00:00 Mechanical Ventilator 01/07/20 00:00 99.0 94 18 150/94 (112) 95 01/07/20 00:00 40 01/06/20 23:32 18 Mechanical Ventilator 40 01/06/20 23:31 18 Mechanical Ventilator 40 01/06/20 23:00 81 18 121/81 (94) 95 01/06/20 23:00 18 Mechanical Ventilator 40 01/06/20 23:00 18 Mechanical Ventilator 40 01/06/20 22:36 92 21 50 01/06/20 22:00 18 Mechanical Ventilator 40 01/06/20 22:00 18 Mechanical Ventilator 40 01/06/20 22:00 67 18 121/72 (88) 94 01/06/20 21:00 86 18 135/86 (102) 95 01/06/20 21:00 18 Mechanical Ventilator 40 01/06/20 21:00 18 Mechanical Ventilator 40 01/06/20 20:00 40 01/06/20 20:00 98.7 70 18 125/84 (98) 94 01/06/20 20:00 Mechanical Ventilator 01/06/20 20:00 71 01/06/20 20:00 18 Mechanical Ventilator 40 01/06/20 20:00 18 Mechanical Ventilator 40 01/06/20 19:00 83 18 129/79 (96) 94 01/06/20 19:00 18 Mechanical Ventilator 40 01/06/20 19:00 18 Mechanical Ventilator 40 01/06/20 18:55 101 22 50 01/06/20 18:30 104 13 158/92 (114) 94 01/06/20 18:26 18 Mechanical Ventilator 40 01/06/20 18:00 100 12 169/76 (107) 93 01/06/20 17:30 94 18 168/113 (131) 97 01/06/20 17:00 18 Mechanical Ventilator 40 01/06/20 17:00 18 Mechanical Ventilator 40 01/06/20 17:00 111 15 148/111 (123) 97 01/06/20 16:51 118 18 50 01/06/20 16:30 116 19 172/107 (128) 95 01/06/20 16:25 20 40 01/06/20 16:00 117 01/06/20 16:00 99.0 112 20 159/102 (121) 97 01/06/20 16:00 50 01/06/20 16:00 18 Mechanical Ventilator 40 01/06/20 16:00 Mechanical Ventilator 01/06/20 15:30 101 13 183/133 (150) 94 01/06/20 15:00 89 18 125/84 (98) 94 01/06/20 15:00 18 Non-Rebreather 40 01/06/20 14:42 109 18 50 I&O Intake and Output 01/06/20 01/07/20 19:00 07:00 Intake Total 874.7 ml 1783.750 ml Output Total 1500 ml 4250 ml Balance -625.3 ml -2466.250 ml IV Total 874.7 ml 1783.750 ml Output Urine Total 1500 ml 4250 ml Dressing: saturated Wound: clean Cardiovascular: RSR Respiratory: clear Abdomen: soft, non-tender Extremities: no edema, no tenderness, no cyanosis Laboratory Tests Test 01/06/20 16:56 01/07/20 06:15 01/07/20 11:00 Vancomycin Level Trough 7.4 ug/mL (5.0-12.0) White Blood Count 10.5 K/UL (4.8-10.8) Red Blood Count 3.61 M/UL (4.70-6.10) L Hemoglobin 11.8 G/DL (14.2-18.0) L Hematocrit 34.7 % (42.0-52.0) L Mean Corpuscular Volume 96 FL (80-99) Mean Corpuscular Hemoglobin 32.8 PG (27.0-31.0) H Mean Corpuscular Hemoglobin Concent 34.1 G/DL (32.0-36.0) Red Cell Distribution Width 11.9 % (11.6-14.8) Platelet Count 144 K/UL (150-450) L Mean Platelet Volume 6.2 FL (6.5-10.1) L Neutrophils (%) (Auto) 77.0 % (45.0-75.0) H Lymphocytes (%) (Auto) 10.5 % (20.0-45.0) L Monocytes (%) (Auto) 11.1 % (1.0-10.0) H Eosinophils (%) (Auto) 0.0 % (0.0-3.0) Basophils (%) (Auto) 1.4 % (0.0-2.0) Sodium Level 144 MMOL/L (136-145) Potassium Level 3.4 MMOL/L (3.5-5.1) L Chloride Level 104 MMOL/L (98-107) Carbon Dioxide Level 34 MMOL/L (21-32) H Anion Gap 6 mmol/L (5-15) Blood Urea Nitrogen 18 mg/dL (7-18) Creatinine 0.9 MG/DL (0.55-1.30) Estimat Glomerular Filtration Rate > 60 mL/min (>60) Glucose Level 176 MG/DL (74-106) #H Calcium Level 7.9 MG/DL (8.5-10.1) L Phosphorus Level 2.8 MG/DL (2.5-4.9) Arterial Blood pH 7.438 (7.350-7.450) Arterial Blood Partial Pressure CO2 52.0 mmHg (35.0-45.0) H Arterial Blood Partial Pressure O2 85.1 mmHg (75.0-100.0) Arterial Blood HCO3 34.4 mmol/L (22.0-26.0) H Arterial Blood Oxygen Saturation 96.1 % (95-100) Arterial Blood Base Excess 8.6 (-2-2) H Juan Test Positive Plan Problems: (1) COPD (chronic obstructive pulmonary disease) Assessment & Plan: As per pulmonology Continue vent support (2) Hyperkalemia (3) Respiratory failure Assessment & Plan: Intubated intensive care unit on vent support Unable to be weaned at this time Chest x-ray noted Sedation wean vent as improving possible extubation soon (4) Rhabdomyolysis Assessment & Plan: IV fluid hydration Trend labs Improving (5) Elevated liver enzymes Assessment & Plan: Likely related to hypotension expressiveness originally. Improving with resuscitation. Likely shock. Hold on ultrasound tentatively Labs improving (6) LUDMILA (acute kidney injury) (7) Suspected COVID-19 virus infection Assessment & Plan: Continues to be ill appearing Pending swabs results initially PICC line placed and patient receiving medications through this but patient was able to pull through his restraints and with movement PICC line was dislodged patient unable to receive sedation medications and requiring urgent central venous catheter insertion. COVID negative Yousif Bates Jan 07, 2020 14:31
[2020-01-07] MEDS: Fat Emulsion Iv 20% 250 ML IV SCH (15:10)
--- NOTE | 2020-01-07 16:11 | General Progress Note ---
Assessment/Plan Problem List: (1) Rhabdomyolysis ICD Codes: M62.82 - Rhabdomyolysis SNOMED: 453778701 (2) Elevated liver enzymes ICD Codes: R74.8 - Abnormal levels of other serum enzymes SNOMED: 899973915 (3) Hyperkalemia ICD Codes: E87.5 - Hyperkalemia SNOMED: 10795255 (4) LUDMILA (acute kidney injury) ICD Codes: N17.9 - Acute kidney failure, unspecified SNOMED: 4541874, 97047116 (5) Suspected COVID-19 virus infection ICD Codes: R68.89 - Other general symptoms and signs SNOMED: 641954322 (6) COPD (chronic obstructive pulmonary disease) ICD Codes: J44.9 - Chronic obstructive pulmonary disease, unspecified SNOMED: 73525620 (7) Respiratory failure ICD Codes: J96.90 - Respiratory failure, unspecified, unspecified whether with hypoxia or hypercapnia SNOMED: 540521180 (8) Drug abuse ICD Codes: F19.10 - Other psychoactive substance abuse, uncomplicated SNOMED: 52186644 (9) Staphylococcal septicemia Assessment & Plan: staph hemolyticus likely contaminant ICD Codes: A41.2 - Sepsis due to unspecified staphylococcus SNOMED: 47776602, [id number] Assessment/Plan: Weaning started, covid 19 neg, , picc as poor access,pulled out , now fem cath for access + hydration , ludmila and K improving, Staph sepsis likely contaminant Vent care, icu orders reviewed and updated,low phos , will give some glucose and lipids, lasix drip d/w dr johnson, still high risk icu time 40min Subjective ROS Limited/Unobtainable: Yes Allergies: Coded Allergies: UNABLE TO ASSESS (Unverified , 01/01/20) Subjective on vent, sedated, 50% FIO2 Objective Last 24 Hour Vital Signs Date Time Temp Pulse Resp B/P (MAP) Pulse Ox O2 Delivery O2 Flow Rate FiO2 01/07/20 15:04 91 13 40 01/07/20 14:30 99 16 194/159 (171) 95 01/07/20 14:21 181/116 01/07/20 14:00 105 17 181/116 (137) 93 01/07/20 13:30 104 19 177/90 (119) 96 01/07/20 13:03 102 20 40 01/07/20 13:00 102 16 186/117 (140) 96 01/07/20 13:00 40 01/07/20 12:30 96 14 178/96 (123) 97 01/07/20 12:00 98.4 100 16 198/135 (156) 97 01/07/20 12:00 16 Mechanical Ventilator 40 01/07/20 12:00 16 Mechanical Ventilator 40 01/07/20 12:00 93 01/07/20 12:00 Mechanical Ventilator 01/07/20 12:00 40 01/07/20 11:39 100 17 177/106 (129) 97 01/07/20 11:30 99 15 181/111 (134) 97 01/07/20 11:08 91 24 50 01/07/20 11:00 16 Mechanical Ventilator 40 01/07/20 11:00 16 Mechanical Ventilator 40 01/07/20 11:00 101 14 153/105 (121) 97 01/07/20 10:30 102 13 180/115 (136) 97 01/07/20 10:00 16 Mechanical Ventilator 40 01/07/20 10:00 16 Mechanical Ventilator 40 01/07/20 10:00 101 12 155/111 (126) 98 01/07/20 09:43 12 Mechanical Ventilator 40 01/07/20 09:43 12 Mechanical Ventilator 40 01/07/20 09:42 16 Mechanical Ventilator 40 01/07/20 09:42 16 Mechanical Ventilator 40 01/07/20 09:30 101 15 159/120 (133) 97 01/07/20 09:00 84 17 160/97 (118) 99 01/07/20 09:00 20 Mechanical Ventilator 40 01/07/20 09:00 18 Mechanical Ventilator 40 01/07/20 08:56 75 18 50 01/07/20 08:30 65 18 120/72 (88) 95 01/07/20 08:00 Mechanical Ventilator 01/07/20 08:00 18 Mechanical Ventilator 40 01/07/20 08:00 18 Mechanical Ventilator 40 01/07/20 08:00 98.5 65 18 121/73 (89) 96 01/07/20 08:00 40 01/07/20 08:00 65 01/07/20 07:30 67 18 121/74 (90) 96 01/07/20 07:14 75 18 50 01/07/20 07:02 18 Mechanical Ventilator 40 01/07/20 07:02 18 Mechanical Ventilator 40 01/07/20 07:00 66 18 119/74 (89) 96 01/07/20 06:30 66 18 01/07/20 06:00 78 16 141/83 (102) 95 01/07/20 06:00 16 Mechanical Ventilator 40 01/07/20 06:00 16 Mechanical Ventilator 40 01/07/20 05:26 67 18 50 01/07/20 05:00 18 Mechanical Ventilator 40 01/07/20 05:00 18 Mechanical Ventilator 40 01/07/20 05:00 68 18 119/74 (89) 96 01/07/20 04:35 18 Mechanical Ventilator 40 01/07/20 04:34 18 Mechanical Ventilator 40 01/07/20 04:00 98.8 84 18 122/75 (91) 99 01/07/20 04:00 18 Mechanical Ventilator 40 01/07/20 04:00 18 Mechanical Ventilator 40 01/07/20 04:00 96 01/07/20 04:00 Mechanical Ventilator 01/07/20 04:00 40 01/07/20 03:29 99 24 50 01/07/20 03:00 18 Mechanical Ventilator 40 01/07/20 03:00 18 Mechanical Ventilator 40 01/07/20 03:00 71 18 126/77 (93) 96 01/07/20 02:00 18 Mechanical Ventilator 40 01/07/20 02:00 18 Mechanical Ventilator 40 01/07/20 02:00 85 16 134/90 (105) 94 01/07/20 01:23 18 Mechanical Ventilator 40 01/07/20 01:00 75 18 115/81 (92) 94 01/07/20 01:00 18 Mechanical Ventilator 40 01/07/20 01:00 18 Mechanical Ventilator 40 01/07/20 00:40 100 19 50 01/07/20 00:00 18 Mechanical Ventilator 40 01/07/20 00:00 18 Mechanical Ventilator 40 01/07/20 00:00 72 01/07/20 00:00 Mechanical Ventilator 01/07/20 00:00 99.0 94 18 150/94 (112) 95 01/07/20 00:00 40 01/06/20 23:32 18 Mechanical Ventilator 40 01/06/20 23:31 18 Mechanical Ventilator 40 01/06/20 23:00 81 18 121/81 (94) 95 01/06/20 23:00 18 Mechanical Ventilator 40 01/06/20 23:00 18 Mechanical Ventilator 40 01/06/20 22:36 92 21 50 01/06/20 22:00 18 Mechanical Ventilator 40 01/06/20 22:00 18 Mechanical Ventilator 40 01/06/20 22:00 67 18 121/72 (88) 94 01/06/20 21:00 86 18 135/86 (102) 95 01/06/20 21:00 18 Mechanical Ventilator 40 01/06/20 21:00 18 Mechanical Ventilator 40 01/06/20 20:00 40 01/06/20 20:00 98.7 70 18 125/84 (98) 94 01/06/20 20:00 Mechanical Ventilator 01/06/20 20:00 71 01/06/20 20:00 18 Mechanical Ventilator 40 01/06/20 20:00 18 Mechanical Ventilator 40 01/06/20 19:00 83 18 129/79 (96) 94 01/06/20 19:00 18 Mechanical Ventilator 40 01/06/20 19:00 18 Mechanical Ventilator 40 01/06/20 18:55 101 22 50 01/06/20 18:30 104 13 158/92 (114) 94 01/06/20 18:26 18 Mechanical Ventilator 40 01/06/20 18:00 100 12 169/76 (107) 93 01/06/20 17:30 94 18 168/113 (131) 97 01/06/20 17:00 18 Mechanical Ventilator 40 01/06/20 17:00 18 Mechanical Ventilator 40 01/06/20 17:00 111 15 148/111 (123) 97 01/06/20 16:51 118 18 50 01/06/20 16:30 116 19 172/107 (128) 95 01/06/20 16:25 20 40 Intake and Output 01/06/20 01/07/20 19:00 07:00 Intake Total 874.7 ml 1783.750 ml Output Total 1500 ml 4250 ml Balance -625.3 ml -2466.250 ml IV Total 874.7 ml 1783.750 ml Output Urine Total 1500 ml 4250 ml Laboratory Tests 01/06/20 16:56: Vancomycin Level Trough 7.4 01/07/20 06:15: White Blood Count 10.5, Red Blood Count 3.61L, Hemoglobin 11.8L, Hematocrit 34.7L, Mean Corpuscular Volume 96, Mean Corpuscular Hemoglobin 32.8H, Mean Corpuscular Hemoglobin Concent 34.1, Red Cell Distribution Width 11.9, Platelet Count 144L, Mean Platelet Volume 6.2L, Neutrophils (%) (Auto) 77.0H, Lymphocytes (%) (Auto) 10.5L, Monocytes (%) (Auto) 11.1H, Eosinophils (%) (Auto ) 0.0, Basophils (%) (Auto) 1.4, Sodium Level 144, Potassium Level 3.4L, Chloride Level 104, Carbon Dioxide Level 34H, Anion Gap 6, Blood Urea Nitrogen 18, Creatinine 0.9, Estimat Glomerular Filtration Rate > 60, Glucose Level 176#H , Calcium Level 7.9L, Phosphorus Level 2.8 01/07/20 11:00: Arterial Blood pH 7.438, Arterial Blood Partial Pressure CO2 52.0H, Arterial Blood Partial Pressure O2 85.1, Arterial Blood HCO3 34.4H, Arterial Blood Oxygen Saturation 96.1, Arterial Blood Base Excess 8.6H, Juan Test Positive Height (Feet): 5 Height (Inches): 8.00 Weight (Pounds): 190 General Appearance: other - on cpap restless EENT: normal ENT inspection Neck: normal alignment Cardiovascular: regular rhythm Respiratory/Chest: rhonchi - bilaterally Abdomen: soft Edema: no edema noted Arm (L), no edema noted Arm (R), no edema noted Leg (L), no edema noted Leg (R), no edema noted Pedal (L), no edema noted Pedal (R), no edema noted Generalized Neurologic: residential program director II-XII grossly normal Francois Dickey MD Jan 07, 2020 16:11
[2020-01-07] MEDS: Dyna-Hex 2% Top Sol 2oz TOPIC SCH (19:42)
[2020-01-07] MEDS: cefTRIAXone 1 GM in D5W 55 ML IV SCH (21:42)
--- NOTE | 2020-01-07 22:59 | Diagnostic Imaging Report ---
EXAM: XR Abdomen, 2 Views CLINICAL HISTORY: NGT TECHNIQUE: Frontal view of the abdomen/pelvis with upright view of the abdomen. COMPARISON: 01/02/2020. FINDINGS: Intraperitoneal space: No free air. Gastrointestinal tract: Unremarkable. No dilation. Organs: Cholecystectomy clips. Bones/joints: Unremarkable. Tubes, lines and devices: Enteric tube terminates within the stomach. IMPRESSION: Enteric tube terminates within the stomach.
[2020-01-08] VITALS (45 sets, daily range): BP systolic 102–178; BP diastolic 71–133
[2020-01-08] MEDS: SODIUM PHOSPHATE IV SCH (02:33)
[2020-01-08] MEDS: DEXTROSE IV SCH (02:33)
[2020-01-08] MEDS: SOD CHL IV SCH (02:33)
[2020-01-08] MEDS: fentaNYL Citrate 2500mcg in NS 250ml IV SCH (04:12)
[2020-01-08] MEDS: Versed 50mg/D5W 100ml 100 ML IV PRN ×2 (04:12→08:43)
[2020-01-08] MEDS: Solu-MEDROL 40mg Inj IVP SCH ×3 (05:43→22:25)
[2020-01-08] MEDS: Vancomycin 1.5gm/NS Premix q24h IVPB SCH ×2 (05:46→17:33)
[2020-01-08] MEDS: NovoLOG Insulin Flexpen SUBQ SCH ×4 (06:52→22:27)
[2020-01-08 07:17] LABS: BASOPHILS % (AUTO) 1.2 % (0.0-2.0); HEMATOCRIT 36.3 % (42.0-52.0); HEMOGLOBIN 12.5 G/DL (14.2-18.0); LYMPHOCYTES % (AUTO) 5.2 % (20.0-45.0); MEAN CORPUSCULAR VOLUME 96 FL (80-99); MONOCYTES % (AUTO) 13.3 % (1.0-10.0); NEUTROPHILS % (AUTO) 80.3 % (45.0-75.0); PLATELET COUNT 165 K/UL (150-450); RED BLOOD COUNT 3.78 M/UL (4.70-6.10); RED CELL DISTRIBUTION WIDTH 12.3 % (11.6-14.8); WHITE BLOOD COUNT 13.8 K/UL (4.8-10.8)
[2020-01-08 07:36] LABS: ANION GAP 6 mmol/L (5-15); BLOOD UREA NITROGEN 18 mg/dL (7-18); CALCIUM 8.2 MG/DL (8.5-10.1); CARBON DIOXIDE 35 MMOL/L (21-32); CHLORIDE 102 MMOL/L (98-107); CREATININE 0.8 MG/DL (0.55-1.30); PHOSPHORUS 3.7 MG/DL (2.5-4.9); POTASSIUM 3.3 MMOL/L (3.5-5.1); SODIUM 143 MMOL/L (136-145)
[2020-01-08] MEDS: Heparin 5000 units/ml inj SUBQ SCH ×2 (08:44→20:31)
--- NOTE | 2020-01-08 12:03 | Pulmonology Progress Note ---
Assessment/Plan Assessment/Plan IMPRESSION: 1. Hyperkalemia. 2. Respiratory failure. 3. Marked leukocytosis. 4. Chronic obstructive pulmonary disease. 5. History of hepatitis C. DISCUSSION: 1. Will adjust vent; continue AC mode; wean and hope to extubate today 2. Continue diuresis 3. Avoid potassium. 4. Continue azithromycin, Rocephin, Pepcid, 5. DVT prophylaxis. 6. Will plan extubation 7. Solu-Medrol 40 IV q.6 h. 8. Broad antibiotic coverage. 9. I will follow carefully. Wean as tolerated. Hope to wean Hardik Medina M.D. Subjective Interval Events: Weaning well; hoping to extubate Constitutional: Reports: no symptoms HEENT: Repors: no symptoms Respiratory: Reports: no symptoms Cardiovascular: Reports: no symptoms Gastrointestinal/Abdominal: Reports: no symptoms Allergies: Coded Allergies: UNABLE TO ASSESS (Unverified , 01/01/20) Objective Last 24 Hour Vital Signs Date Time Temp Pulse Resp B/P (MAP) Pulse Ox O2 Delivery O2 Flow Rate FiO2 01/08/20 11:11 97 01/08/20 11:11 86 21 40 40 01/08/20 10:00 86 17 133/103 (113) 95 01/08/20 09:30 91 16 121/86 (98) 97 01/08/20 09:00 99.0 79 18 155/133 (140) 96 01/08/20 09:00 21 Mechanical Ventilator 40 01/08/20 09:00 21 Mechanical Ventilator 40 01/08/20 08:53 80 23 40 01/08/20 08:43 18 Mechanical Ventilator 40 01/08/20 08:42 18 Mechanical Ventilator 40 01/08/20 08:30 61 18 118/78 (91) 93 01/08/20 08:00 60 18 118/80 (93) 93 01/08/20 08:00 Mechanical Ventilator 01/08/20 08:00 21 Mechanical Ventilator 40 01/08/20 08:00 20 Mechanical Ventilator 40 01/08/20 08:00 61 01/08/20 08:00 40 01/08/20 07:30 60 18 117/79 (92) 92 01/08/20 07:22 20 Mechanical Ventilator 40 01/08/20 07:22 19 Mechanical Ventilator 40 01/08/20 07:15 61 18 129/78 (95) 93 01/08/20 07:02 61 18 40 01/08/20 07:00 61 18 114/75 (88) 93 01/08/20 07:00 21 Mechanical Ventilator 40 01/08/20 07:00 21 Mechanical Ventilator 40 01/08/20 06:30 62 18 114/75 (88) 95 01/08/20 06:15 64 18 108/76 (87) 96 01/08/20 06:00 64 18 115/77 (90) 94 01/08/20 05:30 67 18 130/91 (104) 96 01/08/20 05:17 72 18 40 01/08/20 05:00 65 16 130/91 (104) 95 01/08/20 04:30 72 18 112/75 (87) 01/08/20 04:12 16 Mechanical Ventilator 95 01/08/20 04:12 18 Mechanical Ventilator 40 01/08/20 04:00 40 01/08/20 04:00 70 01/08/20 04:00 Mechanical Ventilator 01/08/20 04:00 98.9 81 18 129/85 (100) 94 01/08/20 03:30 66 18 135/89 (104) 01/08/20 03:03 65 18 40 01/08/20 03:00 64 18 104/73 (83) 01/08/20 02:30 65 18 105/74 (84) 01/08/20 02:00 67 18 107/71 (83) 01/08/20 01:30 66 18 105/71 (82) 93 01/08/20 01:00 68 18 106/71 (83) 01/08/20 01:00 10 40 01/08/20 01:00 10 Mechanical Ventilator 40 01/08/20 00:45 71 18 102/73 (83) 01/08/20 00:45 75 18 40 01/08/20 00:30 74 18 106/73 (84) 01/08/20 00:00 40 01/08/20 00:00 99.3 86 16 134/91 (105) 01/08/20 00:00 86 01/08/20 00:00 10 Mechanical Ventilator 40 01/08/20 00:00 Mechanical Ventilator 40 01/08/20 00:00 Mechanical Ventilator 01/07/20 23:54 10 Mechanical Ventilator 40 01/07/20 23:45 86 18 133/99 (110) 01/07/20 23:30 84 10 136/97 (110) 01/07/20 23:05 84 28 40 01/07/20 23:00 86 14 151/11 (57) 01/07/20 23:00 15 Mechanical Ventilator 40 01/07/20 23:00 18 Mechanical Ventilator 40 01/07/20 22:30 88 14 154/109 (124) 01/07/20 22:00 94 14 180/105 (130) 94 01/07/20 22:00 16 Mechanical Ventilator 40 01/07/20 22:00 16 Mechanical Ventilator 40 01/07/20 21:42 20 Mechanical Ventilator 40 01/07/20 21:30 91 14 164/118 (133) 93 01/07/20 21:23 90 25 40 01/07/20 21:00 18 Mechanical Ventilator 40 01/07/20 21:00 18 Mechanical Ventilator 40 01/07/20 21:00 94 18 155/105 (122) 97 01/07/20 20:00 Mechanical Ventilator 01/07/20 20:00 18 Mechanical Ventilator 40 01/07/20 20:00 18 Mechanical Ventilator 40 01/07/20 20:00 99.3 86 18 163/107 (125) 95 01/07/20 20:00 40 01/07/20 20:00 96 01/07/20 19:42 18 Mechanical Ventilator 40 01/07/20 19:13 92 26 40 01/07/20 19:00 24 Mechanical Ventilator 40 01/07/20 19:00 24 Mechanical Ventilator 40 01/07/20 19:00 94 15 158/99 (118) 98 01/07/20 18:30 97 14 139/98 (112) 97 01/07/20 18:00 91 17 186/85 (118) 95 01/07/20 18:00 20 Mechanical Ventilator 40 01/07/20 18:00 20 Mechanical Ventilator 40 01/07/20 18:00 92 17 186/85 (118) 96 01/07/20 17:30 84 17 190/97 (128) 95 01/07/20 17:00 95 21 186/95 (125) 95 01/07/20 17:00 24 Mechanical Ventilator 40 01/07/20 17:00 24 Mechanical Ventilator 40 01/07/20 17:00 40 01/07/20 17:00 91 19 186/95 (125) 96 01/07/20 16:53 87 21 40 01/07/20 16:30 94 19 176/110 (132) 95 01/07/20 16:00 96 20 180/107 (131) 96 01/07/20 16:00 Mechanical Ventilator 01/07/20 16:00 96 01/07/20 16:00 99.0 98 21 180/107 (131) 95 01/07/20 15:30 101 21 195/106 (135) 95 01/07/20 15:04 91 13 40 40 01/07/20 15:00 98 19 176/120 (138) 01/07/20 15:00 100 20 176/106 (129) 96 01/07/20 14:30 99 16 194/159 (171) 95 01/07/20 14:21 181/116 01/07/20 14:00 105 17 181/116 (137) 93 01/07/20 13:30 104 19 177/90 (119) 96 01/07/20 13:03 102 20 40 40 01/07/20 13:00 102 16 186/117 (140) 96 01/07/20 13:00 16 Mechanical Ventilator 40 01/07/20 13:00 16 Mechanical Ventilator 40 01/07/20 13:00 40 01/07/20 12:30 16 Mechanical Ventilator 40 01/07/20 12:30 96 14 178/96 (123) 97 Intake and Output 01/07/20 01/08/20 19:00 07:00 Intake Total 1739.3 ml 926.5 ml Output Total 3975 ml 1570 ml Balance -2235.7 ml -643.5 ml IV Total 1739.3 ml 926.5 ml Output Urine Total 3975 ml 1570 ml General Appearance: no acute distress HEENT: normocephalic Respiratory/Chest: chest wall non-tender, lungs clear Cardiovascular: normal peripheral pulses Abdomen: normal bowel sounds Microbiology Date/Time Source Procedure Growth Status 01/05/20 16:30 Nasopharynx Coronavirus COVID-19 PCR ([facility]) - Final Complete Laboratory Tests 01/08/20 06:00: White Blood Count 13.8H, Red Blood Count 3.78L, Hemoglobin 12.5L, Hematocrit 36.3L, Mean Corpuscular Volume 96, Mean Corpuscular Hemoglobin 33.0H, Mean Corpuscular Hemoglobin Concent 34.3, Red Cell Distribution Width 12.3, Platelet Count 165, Mean Platelet Volume 6.2L, Neutrophils (%) (Auto) 80.3H, Lymphocytes (%) (Auto) 5.2L, Monocytes (%) (Auto) 13.3H, Eosinophils (%) (Auto) 0.0, Basophils (%) (Auto) 1.2, Sodium Level 143, Potassium Level 3.3L, Chloride Level 102, Carbon Dioxide Level 35H, Anion Gap 6, Blood Urea Nitrogen 18, Creatinine 0.8, Estimat Glomerular Filtration Rate > 60, Glucose Level 175H, Calcium Level 8.2L, Phosphorus Level 3.7 01/08/20 11:40: Arterial Blood pH 7.461H, Arterial Blood Partial Pressure CO2 50.9H, Arterial Blood Partial Pressure O2 77.9, Arterial Blood HCO3 35.5H, Arterial Blood Oxygen Saturation 95.4, Arterial Blood Base Excess 10.0*H, Juan Test Positive Current Medications Medications (Trade) Dose Ordered Sig/Samia Route PRN Reason Start Time Stop Time Status Last Admin Dose Admin Acetaminophen (Tylenol) 650 mg Q4H PRN ORAL fever 01/01/20 19:45 01/31/20 19:44 01/02/20 17:51 Acetaminophen (Tylenol) 650 mg Q4H PRN ORAL Mild Pain (Pain Scale 1-3) 01/01/20 19:45 01/31/20 19:44 Acetaminophen (Tylenol) 650 mg Q4H PRN RECTAL Mild Pain (Pain Scale 1-3) 01/01/20 19:45 01/31/20 19:44 Acetaminophen (Tylenol) 650 mg Q4H PRN RECTAL fever 01/01/20 19:45 01/31/20 19:44 Ceftriaxone Sodium 1 gm/ Dextrose 55 ml @ 110 mls/hr Q24H IV 01/01/20 22:00 01/12/20 21:59 01/07/20 21:42 Chlorhexidine Gluconate (Bhavana-Hex 2%) 1 applic DAILY@2000 TOPIC 01/02/20 20:00 04/01/20 19:59 01/07/20 19:42 Clonidine HCl (Catapres TTS-3) 1 patch QWEEK TDERMAL 01/07/20 15:00 04/06/20 14:59 01/07/20 14:21 Dextrose (Dextrose 50%) 25 ml Q30M PRN IV Hypoglycemia 01/06/20 11:30 04/05/20 11:29 Dextrose (Dextrose 50%) 50 ml Q30M PRN IV Hypoglycemia 01/06/20 11:30 04/05/20 11:29 Famotidine (Pepcid I.v.) 20 mg Q12HR IVP 01/01/20 21:00 01/31/20 20:59 01/08/20 08:43 Fat Emulsion Intravenous 250 ml @ 25 mls/hr Q24H IV 01/07/20 15:00 02/06/20 14:59 01/07/20 15:10 Fentanyl Citrate 2500 mcg/Sodium Chloride 250 ml @ 0 mls/hr Q24H IV 01/02/20 10:20 01/09/20 10:19 01/08/20 04:12 Furosemide 100 mg/ Dextrose 100 ml @ 7.5 mls/hr [id number] IV 01/07/20 14:00 02/06/20 13:59 01/08/20 09:00 Haloperidol Lactate 5 mg/ Dextrose 56 ml @ 224 mls/hr Q6H PRN IVPB Agitation 01/03/20 10:00 02/17/20 09:59 01/04/20 10:52 Heparin Sodium (Porcine) (Heparin 5000 units/ml) 5,000 units EVERY 12 HOURS SUBQ 01/01/20 21:00 02/15/20 20:59 01/08/20 08:44 Insulin Aspart (NovoLOG) BEFORE MEALS AND HS SUBQ 01/06/20 11:30 04/05/20 11:29 01/08/20 12:00 Methylprednisolone Sodium Succinate (Solu-MEDROL) 40 mg EVERY 8 HOURS IVP 01/02/20 14:00 04/01/20 13:59 01/08/20 05:43 Midazolam HCl 100 ml @ 0 mls/hr Q24H PRN IV Agitation 01/04/20 11:20 01/11/20 11:19 01/08/20 08:43 Nitroglycerin (Ntg) 0.4 mg Q5M PRN SL Prn Chest Pain 01/01/20 19:45 01/31/20 19:44 Ondansetron HCl (Zofran) 4 mg Q6H PRN IVP Nausea & Vomiting 01/01/20 19:45 01/31/20 19:44 Polyethylene Glycol (Miralax) 17 gm DAILYPRN PRN ORAL Constipation 01/01/20 19:45 01/31/20 19:44 Potassium Chloride 100 ml @ 100 mls/hr QID IVPB 01/07/20 18:00 04/06/20 17:59 01/08/20 08:44 Sodium Phosphate 20 mm/Dextrose/ Sodium Chloride 1,006.6667 ml @ 50 mls/hr Q20H8M IV 01/05/20 14:30 02/04/20 14:29 01/08/20 02:33 Vancomycin HCl (Vanco rx to dose) 1 ea DAILY PRN MISC Per rx protocol 01/03/20 18:15 02/02/20 18:14 Vancomycin/Sodium Chloride 275 ml @ 137.5 mls/ hr Q12H IVPB 01/07/20 06:00 01/12/20 05:59 01/08/20 05:46 Hardik Medina MD Jan 08, 2020 12:03
[2020-01-08] MEDS: Haloperidol Lactate 5 MG in D5W 55 ML IVPB PRN ×2 (12:47→20:03)
[2020-01-08] MEDS: Fat Emulsion Iv 20% 250 ML IV SCH (15:19)
--- NOTE | 2020-01-08 15:52 | General Progress Note ---
Assessment/Plan Problem List: (1) Rhabdomyolysis ICD Codes: M62.82 - Rhabdomyolysis SNOMED: 479964343 (2) Elevated liver enzymes ICD Codes: R74.8 - Abnormal levels of other serum enzymes SNOMED: 468273613 (3) Hyperkalemia ICD Codes: E87.5 - Hyperkalemia SNOMED: 96187451 (4) LUDMILA (acute kidney injury) ICD Codes: N17.9 - Acute kidney failure, unspecified SNOMED: 7839079, 11808827 (5) Suspected COVID-19 virus infection ICD Codes: R68.89 - Other general symptoms and signs SNOMED: 474008859 (6) COPD (chronic obstructive pulmonary disease) ICD Codes: J44.9 - Chronic obstructive pulmonary disease, unspecified SNOMED: 35080395 (7) Respiratory failure ICD Codes: J96.90 - Respiratory failure, unspecified, unspecified whether with hypoxia or hypercapnia SNOMED: 905779727 (8) Drug abuse ICD Codes: F19.10 - Other psychoactive substance abuse, uncomplicated SNOMED: 97522970 (9) Staphylococcal septicemia Assessment & Plan: staph hemolyticus likely contaminant ICD Codes: A41.2 - Sepsis due to unspecified staphylococcus SNOMED: 39091842, 126469212102 Assessment/Plan: extubated, encephalopathic, still dyspneic, needs some sedation, still high risk icu time 40min Subjective ROS Limited/Unobtainable: Yes Allergies: Coded Allergies: UNABLE TO ASSESS (Unverified , 01/01/20) Subjective on vent, sedated, 50% FIO2 Objective Last 24 Hour Vital Signs Date Time Temp Pulse Resp B/P (MAP) Pulse Ox O2 Delivery O2 Flow Rate FiO2 01/08/20 13:30 93 14 168/105 (126) 93 01/08/20 13:18 98.9 01/08/20 13:00 93 17 168/107 (127) 86 01/08/20 12:30 91 17 149/98 (115) 96 01/08/20 12:30 97 Cool Aerosol 10.0 40 01/08/20 12:20 Venturi Mask 10.0 40 01/08/20 12:20 40 01/08/20 12:00 100.1 92 13 167/108 (127) 96 01/08/20 12:00 40 01/08/20 11:30 91 13 178/94 (122) 100 01/08/20 11:11 97 01/08/20 11:11 86 21 40 40 01/08/20 11:00 95 14 154/116 (129) 98 01/08/20 10:30 73 18 106/73 (84) 93 01/08/20 10:00 86 17 133/103 (113) 95 01/08/20 09:30 91 16 121/86 (98) 97 01/08/20 09:00 99.0 79 18 155/133 (140) 96 01/08/20 09:00 21 Mechanical Ventilator 40 01/08/20 09:00 21 Mechanical Ventilator 40 01/08/20 08:53 80 23 40 01/08/20 08:43 18 Mechanical Ventilator 40 01/08/20 08:42 18 Mechanical Ventilator 40 01/08/20 08:30 61 18 118/78 (91) 93 01/08/20 08:00 60 18 118/80 (93) 93 01/08/20 08:00 Mechanical Ventilator 01/08/20 08:00 21 Mechanical Ventilator 40 01/08/20 08:00 20 Mechanical Ventilator 40 01/08/20 08:00 61 01/08/20 08:00 40 01/08/20 07:30 60 18 117/79 (92) 92 01/08/20 07:22 20 Mechanical Ventilator 40 01/08/20 07:22 19 Mechanical Ventilator 40 01/08/20 07:15 61 18 129/78 (95) 93 01/08/20 07:02 61 18 40 01/08/20 07:00 61 18 114/75 (88) 93 01/08/20 07:00 21 Mechanical Ventilator 40 01/08/20 07:00 21 Mechanical Ventilator 40 01/08/20 06:30 62 18 114/75 (88) 95 01/08/20 06:15 64 18 108/76 (87) 96 01/08/20 06:00 64 18 115/77 (90) 94 01/08/20 05:30 67 18 130/91 (104) 96 01/08/20 05:17 72 18 40 01/08/20 05:00 65 16 130/91 (104) 95 01/08/20 04:30 72 18 112/75 (87) 01/08/20 04:12 16 Mechanical Ventilator 95 01/08/20 04:12 18 Mechanical Ventilator 40 01/08/20 04:00 40 01/08/20 04:00 70 01/08/20 04:00 Mechanical Ventilator 01/08/20 04:00 98.9 81 18 129/85 (100) 94 01/08/20 03:30 66 18 135/89 (104) 01/08/20 03:03 65 18 40 01/08/20 03:00 64 18 104/73 (83) 01/08/20 02:30 65 18 105/74 (84) 01/08/20 02:00 67 18 107/71 (83) 01/08/20 01:30 66 18 105/71 (82) 93 01/08/20 01:00 68 18 106/71 (83) 01/08/20 01:00 10 40 01/08/20 01:00 10 Mechanical Ventilator 40 01/08/20 00:45 71 18 102/73 (83) 01/08/20 00:45 75 18 40 01/08/20 00:30 74 18 106/73 (84) 01/08/20 00:00 40 01/08/20 00:00 99.3 86 16 134/91 (105) 01/08/20 00:00 86 01/08/20 00:00 10 Mechanical Ventilator 40 01/08/20 00:00 Mechanical Ventilator 40 01/08/20 00:00 Mechanical Ventilator 01/07/20 23:54 10 Mechanical Ventilator 40 01/07/20 23:45 86 18 133/99 (110) 01/07/20 23:30 84 10 136/97 (110) 01/07/20 23:05 84 28 40 01/07/20 23:00 86 14 151/11 (57) 01/07/20 23:00 15 Mechanical Ventilator 40 01/07/20 23:00 18 Mechanical Ventilator 40 01/07/20 22:30 88 14 154/109 (124) 01/07/20 22:00 94 14 180/105 (130) 94 01/07/20 22:00 16 Mechanical Ventilator 40 01/07/20 22:00 16 Mechanical Ventilator 40 01/07/20 21:42 20 Mechanical Ventilator 40 01/07/20 21:30 91 14 164/118 (133) 93 01/07/20 21:23 90 25 40 01/07/20 21:00 18 Mechanical Ventilator 40 01/07/20 21:00 18 Mechanical Ventilator 40 01/07/20 21:00 94 18 155/105 (122) 97 01/07/20 20:00 Mechanical Ventilator 01/07/20 20:00 18 Mechanical Ventilator 40 01/07/20 20:00 18 Mechanical Ventilator 40 01/07/20 20:00 99.3 86 18 163/107 (125) 95 01/07/20 20:00 40 01/07/20 20:00 96 01/07/20 19:42 18 Mechanical Ventilator 40 01/07/20 19:13 92 26 40 01/07/20 19:00 24 Mechanical Ventilator 40 01/07/20 19:00 24 Mechanical Ventilator 40 01/07/20 19:00 94 15 158/99 (118) 98 01/07/20 18:30 97 14 139/98 (112) 97 01/07/20 18:00 91 17 186/85 (118) 95 01/07/20 18:00 20 Mechanical Ventilator 40 01/07/20 18:00 20 Mechanical Ventilator 40 01/07/20 18:00 92 17 186/85 (118) 96 01/07/20 17:30 84 17 190/97 (128) 95 01/07/20 17:00 95 21 186/95 (125) 95 01/07/20 17:00 24 Mechanical Ventilator 40 01/07/20 17:00 24 Mechanical Ventilator 40 01/07/20 17:00 40 01/07/20 17:00 91 19 186/95 (125) 96 01/07/20 16:53 87 21 40 01/07/20 16:30 94 19 176/110 (132) 95 01/07/20 16:00 96 20 180/107 (131) 96 01/07/20 16:00 Mechanical Ventilator 01/07/20 16:00 96 01/07/20 16:00 99.0 98 21 180/107 (131) 95 Intake and Output 01/07/20 01/08/20 19:00 07:00 Intake Total 1739.3 ml 926.5 ml Output Total 3975 ml 1570 ml Balance -2235.7 ml -643.5 ml IV Total 1739.3 ml 926.5 ml Output Urine Total 3975 ml 1570 ml Laboratory Tests 01/08/20 06:00: White Blood Count 13.8H, Red Blood Count 3.78L, Hemoglobin 12.5L, Hematocrit 36.3L, Mean Corpuscular Volume 96, Mean Corpuscular Hemoglobin 33.0H, Mean Corpuscular Hemoglobin Concent 34.3, Red Cell Distribution Width 12.3, Platelet Count 165, Mean Platelet Volume 6.2L, Neutrophils (%) (Auto) 80.3H, Lymphocytes (%) (Auto) 5.2L, Monocytes (%) (Auto) 13.3H, Eosinophils (%) (Auto) 0.0, Basophils (%) (Auto) 1.2, Sodium Level 143, Potassium Level 3.3L, Chloride Level 102, Carbon Dioxide Level 35H, Anion Gap 6, Blood Urea Nitrogen 18, Creatinine 0.8, Estimat Glomerular Filtration Rate > 60, Glucose Level 175H, Calcium Level 8.2L, Phosphorus Level 3.7 01/08/20 11:40: Arterial Blood pH 7.461H, Arterial Blood Partial Pressure CO2 50.9H, Arterial Blood Partial Pressure O2 77.9, Arterial Blood HCO3 35.5H, Arterial Blood Oxygen Saturation 95.4, Arterial Blood Base Excess 10.0*H, Juan Test Positive Height (Feet): 5 Height (Inches): 8.00 Weight (Pounds): 191 General Appearance: other - extubated agitated EENT: normal ENT inspection Neck: normal alignment Cardiovascular: regular rhythm Respiratory/Chest: rhonchi - bilaterally Abdomen: soft, no organomegaly Edema: no edema noted Arm (L), no edema noted Arm (R), no edema noted Leg (L), no edema noted Leg (R), no edema noted Pedal (L), no edema noted Pedal (R), no edema noted Generalized Francois Dickey MD Jan 08, 2020 15:52
--- NOTE | 2020-01-08 18:31 | Surgery Progress Note ---
Surgery Progress Note Subjective Procedure Performed Left femoral triple-lumen venous central catheter insertion Symptoms: improved Additional Comments extubated agitated may pull out lines and tubes discussed with RN Objective Last 24 Hour Vital Signs Date Time Temp Pulse Resp B/P (MAP) Pulse Ox O2 Delivery O2 Flow Rate FiO2 01/08/20 18:00 82 16 165/94 (117) 98 01/08/20 17:30 87 15 164/112 (129) 97 01/08/20 17:00 85 17 162/107 (125) 97 01/08/20 16:30 85 15 178/100 (126) 96 01/08/20 16:00 40 01/08/20 16:00 98.7 79 12 174/87 (116) 94 01/08/20 16:00 Venturi Mask 10.0 01/08/20 16:00 87 01/08/20 15:30 91 15 164/114 (131) 97 01/08/20 15:00 87 18 173/103 (126) 98 01/08/20 14:30 93 20 168/89 (115) 96 01/08/20 14:00 93 17 162/101 (121) 95 01/08/20 13:30 93 14 168/105 (126) 93 01/08/20 13:18 98.9 01/08/20 13:00 93 17 168/107 (127) 86 01/08/20 12:30 91 17 149/98 (115) 96 01/08/20 12:30 97 Cool Aerosol 10.0 40 01/08/20 12:20 Venturi Mask 10.0 40 01/08/20 12:20 40 01/08/20 12:00 100.1 92 13 167/108 (127) 96 01/08/20 12:00 40 01/08/20 12:00 Venturi Mask 10.0 01/08/20 11:30 91 13 178/94 (122) 100 01/08/20 11:11 97 01/08/20 11:11 86 21 40 40 01/08/20 11:00 95 14 154/116 (129) 98 01/08/20 10:45 18 Mechanical Ventilator 40 01/08/20 10:45 18 Mechanical Ventilator 40 01/08/20 10:30 73 18 106/73 (84) 93 01/08/20 10:00 86 17 133/103 (113) 95 01/08/20 10:00 18 Mechanical Ventilator 40 01/08/20 10:00 18 Mechanical Ventilator 40 01/08/20 09:30 91 16 121/86 (98) 97 01/08/20 09:00 99.0 79 18 155/133 (140) 96 01/08/20 09:00 21 Mechanical Ventilator 40 01/08/20 09:00 21 Mechanical Ventilator 40 01/08/20 08:53 80 23 40 01/08/20 08:43 18 Mechanical Ventilator 40 01/08/20 08:42 18 Mechanical Ventilator 40 01/08/20 08:30 61 18 118/78 (91) 93 01/08/20 08:00 60 18 118/80 (93) 93 01/08/20 08:00 Mechanical Ventilator 01/08/20 08:00 21 Mechanical Ventilator 40 01/08/20 08:00 20 Mechanical Ventilator 40 01/08/20 08:00 61 01/08/20 08:00 40 01/08/20 07:30 60 18 117/79 (92) 92 01/08/20 07:22 20 Mechanical Ventilator 40 01/08/20 07:22 19 Mechanical Ventilator 40 01/08/20 07:15 61 18 129/78 (95) 93 01/08/20 07:02 61 18 40 01/08/20 07:00 61 18 114/75 (88) 93 01/08/20 07:00 21 Mechanical Ventilator 40 01/08/20 07:00 21 Mechanical Ventilator 40 01/08/20 07:00 60 18 01/08/20 06:30 62 18 114/75 (88) 95 01/08/20 06:15 64 18 108/76 (87) 96 01/08/20 06:00 64 18 115/77 (90) 94 01/08/20 05:30 67 18 130/91 (104) 96 01/08/20 05:17 72 18 40 01/08/20 05:00 65 16 130/91 (104) 95 01/08/20 04:30 72 18 112/75 (87) 01/08/20 04:12 16 Mechanical Ventilator 95 01/08/20 04:12 18 Mechanical Ventilator 40 01/08/20 04:00 40 01/08/20 04:00 70 01/08/20 04:00 Mechanical Ventilator 01/08/20 04:00 98.9 81 18 129/85 (100) 94 01/08/20 03:30 66 18 135/89 (104) 01/08/20 03:03 65 18 40 01/08/20 03:00 64 18 104/73 (83) 01/08/20 02:30 65 18 105/74 (84) 01/08/20 02:00 67 18 107/71 (83) 01/08/20 01:30 66 18 105/71 (82) 93 01/08/20 01:00 68 18 106/71 (83) 01/08/20 01:00 10 40 01/08/20 01:00 10 Mechanical Ventilator 40 01/08/20 00:45 71 18 102/73 (83) 01/08/20 00:45 75 18 40 01/08/20 00:30 74 18 106/73 (84) 01/08/20 00:00 40 01/08/20 00:00 99.3 86 16 134/91 (105) 01/08/20 00:00 86 01/08/20 00:00 10 Mechanical Ventilator 40 01/08/20 00:00 Mechanical Ventilator 40 01/08/20 00:00 Mechanical Ventilator 01/07/20 23:54 10 Mechanical Ventilator 40 01/07/20 23:45 86 18 133/99 (110) 01/07/20 23:30 84 10 136/97 (110) 01/07/20 23:05 84 28 40 01/07/20 23:00 86 14 151/11 (57) 01/07/20 23:00 15 Mechanical Ventilator 40 01/07/20 23:00 18 Mechanical Ventilator 40 01/07/20 22:30 88 14 154/109 (124) 01/07/20 22:00 94 14 180/105 (130) 94 01/07/20 22:00 16 Mechanical Ventilator 40 01/07/20 22:00 16 Mechanical Ventilator 40 01/07/20 21:42 20 Mechanical Ventilator 40 01/07/20 21:30 91 14 164/118 (133) 93 01/07/20 21:23 90 25 40 01/07/20 21:00 18 Mechanical Ventilator 40 01/07/20 21:00 18 Mechanical Ventilator 40 01/07/20 21:00 94 18 155/105 (122) 97 01/07/20 20:00 Mechanical Ventilator 01/07/20 20:00 18 Mechanical Ventilator 40 01/07/20 20:00 18 Mechanical Ventilator 40 01/07/20 20:00 99.3 86 18 163/107 (125) 95 01/07/20 20:00 40 01/07/20 20:00 96 01/07/20 19:42 18 Mechanical Ventilator 40 01/07/20 19:13 92 26 40 01/07/20 19:00 24 Mechanical Ventilator 40 01/07/20 19:00 24 Mechanical Ventilator 40 01/07/20 19:00 94 15 158/99 (118) 98 I&O Intake and Output 01/07/20 01/08/20 19:00 07:00 Intake Total 1739.3 ml 926.5 ml Output Total 3975 ml 1570 ml Balance -2235.7 ml -643.5 ml IV Total 1739.3 ml 926.5 ml Output Urine Total 3975 ml 1570 ml Dressing: dry Wound: clean Cardiovascular: RSR Respiratory: clear, decreased breath sounds Abdomen: soft, non-tender, present bowel sounds Extremities: no edema, no tenderness, no cyanosis Laboratory Tests Test 01/08/20 06:00 01/08/20 11:40 01/08/20 17:40 White Blood Count 13.8 K/UL (4.8-10.8) H Red Blood Count 3.78 M/UL (4.70-6.10) L Hemoglobin 12.5 G/DL (14.2-18.0) L Hematocrit 36.3 % (42.0-52.0) L Mean Corpuscular Volume 96 FL (80-99) Mean Corpuscular Hemoglobin 33.0 PG (27.0-31.0) H Mean Corpuscular Hemoglobin Concent 34.3 G/DL (32.0-36.0) Red Cell Distribution Width 12.3 % (11.6-14.8) Platelet Count 165 K/UL (150-450) Mean Platelet Volume 6.2 FL (6.5-10.1) L Neutrophils (%) (Auto) 80.3 % (45.0-75.0) H Lymphocytes (%) (Auto) 5.2 % (20.0-45.0) L Monocytes (%) (Auto) 13.3 % (1.0-10.0) H Eosinophils (%) (Auto) 0.0 % (0.0-3.0) Basophils (%) (Auto) 1.2 % (0.0-2.0) Sodium Level 143 MMOL/L (136-145) Potassium Level 3.3 MMOL/L (3.5-5.1) L Chloride Level 102 MMOL/L (98-107) Carbon Dioxide Level 35 MMOL/L (21-32) H Anion Gap 6 mmol/L (5-15) Blood Urea Nitrogen 18 mg/dL (7-18) Creatinine 0.8 MG/DL (0.55-1.30) Estimat Glomerular Filtration Rate > 60 mL/min (>60) Glucose Level 175 MG/DL (74-106) H Calcium Level 8.2 MG/DL (8.5-10.1) L Phosphorus Level 3.7 MG/DL (2.5-4.9) Arterial Blood pH 7.461 (7.350-7.450) Arterial Blood Partial Pressure CO2 50.9 mmHg (35.0-45.0) H Arterial Blood Partial Pressure O2 77.9 mmHg (75.0-100.0) Arterial Blood HCO3 35.5 mmol/L (22.0-26.0) H Arterial Blood Oxygen Saturation 95.4 % (95-100) Arterial Blood Base Excess 10.0 (-2-2) *H Juan Test Positive Vancomycin Level Trough Pending Plan Problems: (1) COPD (chronic obstructive pulmonary disease) Assessment & Plan: As per pulmonology Continue vent support (2) Hyperkalemia (3) Respiratory failure Assessment & Plan: Intubated intensive care unit on vent support Unable to be weaned at this time Chest x-ray noted Sedation wean vent as improving possible extubation soon (4) Rhabdomyolysis Assessment & Plan: IV fluid hydration Trend labs Improving (5) Elevated liver enzymes Assessment & Plan: Likely related to hypotension expressiveness originally. Improving with resuscitation. Likely shock. Hold on ultrasound tentatively Labs improving (6) LUDMILA (acute kidney injury) (7) Suspected COVID-19 virus infection Assessment & Plan: Continues to be ill appearing Pending swabs results initially PICC line placed and patient receiving medications through this but patient was able to pull through his restraints and with movement PICC line was dislodged patient unable to receive sedation medications and requiring urgent central venous catheter insertion. COVID negative Yousif Bates Jan 08, 2020 18:31
[2020-01-08] MEDS: Dyna-Hex 2% Top Sol 2oz TOPIC SCH (20:03)
[2020-01-08] MEDS: cefTRIAXone 1 GM in D5W 55 ML IV SCH (22:25)
[2020-01-09] VITALS (28 sets, daily range): BP systolic 123–180; BP diastolic 72–137
[2020-01-09] MEDS: DEXTROSE IV SCH (01:21)
[2020-01-09] MEDS: SOD CHL IV SCH (01:21)
[2020-01-09] MEDS: SODIUM PHOSPHATE IV SCH (01:21)
[2020-01-09] MEDS: Haloperidol Lactate 5 MG in D5W 55 ML IVPB PRN (04:57)
[2020-01-09] MEDS: VANCOMYCIN IVPB SCH ×2 (05:48→17:41)
[2020-01-09] MEDS: SODIUM CHLORIDE IVPB SCH ×2 (05:48→17:41)
[2020-01-09] MEDS: Solu-MEDROL 40mg Inj IVP SCH ×2 (05:49→17:08)
[2020-01-09] MEDS: NovoLOG Insulin Flexpen SUBQ SCH ×4 (05:50→21:00)
[2020-01-09 05:52] LABS: BASOPHILS % (AUTO) 1.1 % (0.0-2.0); HEMATOCRIT 38.5 % (42.0-52.0); HEMOGLOBIN 13.4 G/DL (14.2-18.0); LYMPHOCYTES % (AUTO) 6.3 % (20.0-45.0); MEAN CORPUSCULAR VOLUME 96 FL (80-99); MONOCYTES % (AUTO) 11.7 % (1.0-10.0); NEUTROPHILS % (AUTO) 80.9 % (45.0-75.0); PLATELET COUNT 210 K/UL (150-450); RED BLOOD COUNT 4.01 M/UL (4.70-6.10); WHITE BLOOD COUNT 17.5 K/UL (4.8-10.8)
[2020-01-09 06:26] LABS: ANION GAP 11 mmol/L (5-15); BLOOD UREA NITROGEN 14 mg/dL (7-18); CALCIUM 8.2 MG/DL (8.5-10.1); CARBON DIOXIDE 30 MMOL/L (21-32); CHLORIDE 101 MMOL/L (98-107); CREATINE KINASE 376 U/L (26-308); CREATININE 0.9 MG/DL (0.55-1.30); POTASSIUM 2.9 MMOL/L (3.5-5.1); SODIUM 141 MMOL/L (136-145)
[2020-01-09 06:35] LABS: AMMONIA 26 umol/L (11-32)
[2020-01-09] MEDS: Heparin 5000 units/ml inj SUBQ SCH ×2 (09:17→21:23)
--- NOTE | 2020-01-09 11:21 | Pulmonology Progress Note ---
Assessment/Plan Assessment/Plan IMPRESSION: 1. Hyperkalemia. Corrected 2. Respiratory failure. Resolved. 3. Marked leukocytosis. 4. Chronic obstructive pulmonary disease. 5. History of hepatitis C. DISCUSSION: 1. Doing well on 2L/min O2 2. Swallow eval 3. Avoid potassium. 4. Continue azithromycin, Rocephin, Pepcid, 5. DVT prophylaxis. 6. S/pxtubation 7. Solu-Medrol 40 IV q.6 h. Will decrease 8. Broad antibiotic coverage. 9. I will follow carefully. Hardik Medina M.D. Subjective Interval Events: None new; s/p extubation yesterday Constitutional: Reports: no symptoms HEENT: Repors: no symptoms Respiratory: Reports: no symptoms Cardiovascular: Reports: no symptoms Gastrointestinal/Abdominal: Reports: no symptoms Allergies: Coded Allergies: UNABLE TO ASSESS (Unverified , 01/01/20) Objective Last 24 Hour Vital Signs Date Time Temp Pulse Resp B/P (MAP) Pulse Ox O2 Delivery O2 Flow Rate FiO2 01/09/20 11:00 66 25 161/82 (108) 100 01/09/20 10:00 80 23 155/105 (122) 100 01/09/20 09:00 91 20 174/110 (131) 100 01/09/20 08:00 40 01/09/20 08:00 98.5 77 20 168/106 (126) 100 01/09/20 07:18 98 Cool Aerosol 10.0 40 01/09/20 07:00 68 18 140/86 (104) 58 01/09/20 06:30 73 18 01/09/20 06:00 69 18 123/94 (104) 58 01/09/20 05:00 82 26 161/137 (145) 52 01/09/20 04:00 Venturi Mask 10.0 01/09/20 04:00 40 01/09/20 04:00 98.8 77 19 150/85 (106) 99 01/09/20 04:00 84 01/09/20 03:00 89 25 160/90 (113) 100 01/09/20 02:00 63 17 135/72 (93) 99 01/09/20 01:00 94 17 176/102 (126) 98 01/09/20 00:15 100 Cool Aerosol 10.0 40 01/09/20 00:00 40 01/09/20 00:00 40 01/09/20 00:00 99.0 86 25 167/99 (121) 98 01/09/20 00:00 92 01/09/20 00:00 Venturi Mask 10.0 01/08/20 23:00 78 17 153/91 (111) 96 01/08/20 22:00 92 22 172/99 (123) 100 01/08/20 21:00 88 19 172/126 (141) 92 01/08/20 20:00 98.7 90 17 170/92 (118) 94 01/08/20 20:00 Venturi Mask 10.0 01/08/20 20:00 40 01/08/20 20:00 87 01/08/20 19:10 100 Cool Aerosol 10.0 40 01/08/20 19:00 92 20 173/91 (118) 92 01/08/20 18:00 82 16 165/94 (117) 98 01/08/20 17:30 87 15 164/112 (129) 97 01/08/20 17:00 85 17 162/107 (125) 97 01/08/20 16:30 85 15 178/100 (126) 96 01/08/20 16:00 40 01/08/20 16:00 98.7 79 12 174/87 (116) 94 01/08/20 16:00 Venturi Mask 10.0 01/08/20 16:00 87 01/08/20 15:30 91 15 164/114 (131) 97 01/08/20 15:00 87 18 173/103 (126) 98 01/08/20 14:30 93 20 168/89 (115) 96 01/08/20 14:00 93 17 162/101 (121) 95 01/08/20 13:30 93 14 168/105 (126) 93 01/08/20 13:18 98.9 01/08/20 13:00 93 17 168/107 (127) 86 01/08/20 12:30 91 17 149/98 (115) 96 01/08/20 12:30 97 Cool Aerosol 10.0 40 01/08/20 12:20 Venturi Mask 10.0 40 01/08/20 12:20 40 01/08/20 12:00 100.1 92 13 167/108 (127) 96 01/08/20 12:00 40 01/08/20 12:00 Venturi Mask 10.0 01/08/20 11:30 91 13 178/94 (122) 100 Intake and Output 01/08/20 01/09/20 19:00 07:00 Intake Total 1305.25 ml 911 ml Output Total 1850 ml 2100 ml Balance -544.75 ml -1189 ml IV Total 1305.25 ml 911 ml Output Urine Total 1850 ml 2100 ml General Appearance: no acute distress HEENT: normocephalic Respiratory/Chest: chest wall non-tender Cardiovascular: normal peripheral pulses Abdomen: normal bowel sounds, soft, non tender Extremities: no cyanosis Laboratory Tests 01/08/20 11:40: Arterial Blood pH 7.461H, Arterial Blood Partial Pressure CO2 50.9H, Arterial Blood Partial Pressure O2 77.9, Arterial Blood HCO3 35.5H, Arterial Blood Oxygen Saturation 95.4, Arterial Blood Base Excess 10.0*H, Juan Test Positive 01/08/20 17:40: Vancomycin Level Trough 13.7H 01/09/20 05:00: White Blood Count 17.5H, Red Blood Count 4.01L, Hemoglobin 13.4L, Hematocrit 38.5L, Mean Corpuscular Volume 96, Mean Corpuscular Hemoglobin 33.5H, Mean Corpuscular Hemoglobin Concent 34.9, Red Cell Distribution Width 12.0, Platelet Count 210, Mean Platelet Volume 6.0L, Neutrophils (%) (Auto) 80.9H, Lymphocytes (%) (Auto) 6.3L, Monocytes (%) (Auto) 11.7H, Eosinophils (%) (Auto) 0.0, Basophils (%) (Auto) 1.1, Sodium Level 141, Potassium Level 2.9L, Chloride Level 101, Carbon Dioxide Level 30, Anion Gap 11, Blood Urea Nitrogen 14, Creatinine 0.9, Estimat Glomerular Filtration Rate > 60, Glucose Level 156H, Calcium Level 8.2L, Ammonia 26, Total Creatine Kinase 376H 01/09/20 10:27: Arterial Blood pH 7.484H, Arterial Blood Partial Pressure CO2 39.9, Arterial Blood Partial Pressure O2 105.0H, Arterial Blood HCO3 29.3H, Arterial Blood Oxygen Saturation 97.3, Arterial Blood Base Excess 5.5H, Juan Test Positive Current Medications Medications (Trade) Dose Ordered Sig/Samia Route PRN Reason Start Time Stop Time Status Last Admin Dose Admin Acetaminophen (Tylenol) 650 mg Q4H PRN ORAL fever 01/01/20 19:45 01/31/20 19:44 01/02/20 17:51 Acetaminophen (Tylenol) 650 mg Q4H PRN ORAL Mild Pain (Pain Scale 1-3) 01/01/20 19:45 01/31/20 19:44 01/08/20 12:48 Acetaminophen (Tylenol) 650 mg Q4H PRN RECTAL Mild Pain (Pain Scale 1-3) 01/01/20 19:45 01/31/20 19:44 Acetaminophen (Tylenol) 650 mg Q4H PRN RECTAL fever 01/01/20 19:45 01/31/20 19:44 Ceftriaxone Sodium 1 gm/ Dextrose 55 ml @ 110 mls/hr Q24H IV 01/01/20 22:00 01/12/20 21:59 01/08/20 22:25 Chlorhexidine Gluconate (Bhavana-Hex 2%) 1 applic DAILY@2000 TOPIC 01/02/20 20:00 04/01/20 19:59 01/08/20 20:03 Clonidine HCl (Catapres TTS-3) 1 patch QWEEK TDERMAL 01/07/20 15:00 04/06/20 14:59 01/07/20 14:21 Dextrose (Dextrose 50%) 25 ml Q30M PRN IV Hypoglycemia 01/06/20 11:30 04/05/20 11:29 Dextrose (Dextrose 50%) 50 ml Q30M PRN IV Hypoglycemia 01/06/20 11:30 04/05/20 11:29 Famotidine (Pepcid I.v.) 20 mg Q12HR IVP 01/01/20 21:00 01/31/20 20:59 01/09/20 09:15 Fat Emulsion Intravenous 250 ml @ 25 mls/hr Q24H IV 01/07/20 15:00 02/06/20 14:59 01/08/20 15:19 Haloperidol Lactate 5 mg/ Dextrose 56 ml @ 224 mls/hr Q6H PRN IVPB Agitation 01/03/20 10:00 02/17/20 09:59 01/09/20 04:57 Heparin Sodium (Porcine) (Heparin 5000 units/ml) 5,000 units EVERY 12 HOURS SUBQ 01/01/20 21:00 02/15/20 20:59 01/09/20 09:17 Insulin Aspart (NovoLOG) BEFORE MEALS AND HS SUBQ 01/06/20 11:30 04/05/20 11:29 01/09/20 05:50 Methylprednisolone Sodium Succinate (Solu-MEDROL) 20 mg EVERY 8 HOURS IVP 01/08/20 14:00 04/01/20 13:59 01/09/20 05:49 Nitroglycerin (Ntg) 0.4 mg Q5M PRN SL Prn Chest Pain 01/01/20 19:45 01/31/20 19:44 Ondansetron HCl (Zofran) 4 mg Q6H PRN IVP Nausea & Vomiting 01/01/20 19:45 01/31/20 19:44 Polyethylene Glycol (Miralax) 17 gm DAILYPRN PRN ORAL Constipation 01/01/20 19:45 01/31/20 19:44 Potassium Chloride 100 ml @ 100 mls/hr QID IVPB 01/07/20 18:00 04/06/20 17:59 01/09/20 09:16 Sodium Phosphate 20 mm/Dextrose/ Sodium Chloride 1,006.6667 ml @ 50 mls/hr Q20H8M IV 01/05/20 14:30 02/04/20 14:29 01/09/20 01:21 Vancomycin HCl (Vanco rx to dose) 1 ea DAILY PRN MISC Per rx protocol 01/03/20 18:15 02/02/20 18:14 Vancomycin HCl 1.75 gm/Sodium Chloride 550 ml @ 275 mls/hr Q12H IVPB 01/09/20 06:00 01/14/20 05:59 01/09/20 05:48 Hardik Medina MD Jan 09, 2020 11:21
[2020-01-09] MEDS ORDERED: Tubing IV Secondary IV ONE ×2 (13:12→14:01)
[2020-01-09] MEDS ORDERED: NS 275ml ONE ×2 (13:12→14:01)
[2020-01-09] MEDS ORDERED: 1/2 NS 1000ml IV ONE (13:12)
--- NOTE | 2020-01-09 15:05 | General Progress Note ---
Assessment/Plan Problem List: (1) Rhabdomyolysis ICD Codes: M62.82 - Rhabdomyolysis SNOMED: 637790864 (2) Elevated liver enzymes ICD Codes: R74.8 - Abnormal levels of other serum enzymes SNOMED: 514417654 (3) Hyperkalemia ICD Codes: E87.5 - Hyperkalemia SNOMED: 19464830 (4) LUDMILA (acute kidney injury) ICD Codes: N17.9 - Acute kidney failure, unspecified SNOMED: 5165027, 25141428 (5) Suspected COVID-19 virus infection ICD Codes: R68.89 - Other general symptoms and signs SNOMED: 615859183 (6) COPD (chronic obstructive pulmonary disease) ICD Codes: J44.9 - Chronic obstructive pulmonary disease, unspecified SNOMED: 32262808 (7) Respiratory failure ICD Codes: J96.90 - Respiratory failure, unspecified, unspecified whether with hypoxia or hypercapnia SNOMED: 845906327 (8) Drug abuse ICD Codes: F19.10 - Other psychoactive substance abuse, uncomplicated SNOMED: 89665973 (9) Staphylococcal septicemia Assessment & Plan: staph hemolyticus likely contaminant ICD Codes: A41.2 - Sepsis due to unspecified staphylococcus SNOMED: 75947782, 105382372753 (10) Metabolic encephalopathy ICD Codes: G93.41 - Metabolic encephalopathy SNOMED: 80799973 Assessment/Plan: extubated, answers simple questions, less dyspneic, still high risk to mobilize , replace K orders updated icu time 40min Subjective Constitutional: Reports: weakness Cardiovascular: Reports: no symptoms Respiratory: Reports: cough, shortness of breath Gastrointestinal/Abdominal: Reports: no symptoms Genitourinary: Reports: no symptoms Neurologic/Psychiatric: Reports: no symptoms Endocrine: Reports: no symptoms Allergies: Coded Allergies: UNABLE TO ASSESS (Unverified , 01/01/20) Subjective alert extubated Objective Last 24 Hour Vital Signs Date Time Temp Pulse Resp B/P (MAP) Pulse Ox O2 Delivery O2 Flow Rate FiO2 01/09/20 14:00 84 28 159/89 (112) 100 01/09/20 13:00 82 22 150/99 (116) 100 01/09/20 12:00 2.0 01/09/20 12:00 61 01/09/20 12:00 98.8 70 20 133/94 (107) 100 01/09/20 12:00 Nasal Cannula 2.0 01/09/20 11:00 66 25 161/82 (108) 100 01/09/20 10:00 80 23 155/105 (122) 100 01/09/20 09:00 91 20 174/110 (131) 100 01/09/20 08:00 40 01/09/20 08:00 70 01/09/20 08:00 Venturi Mask 10.0 01/09/20 08:00 98.5 77 20 168/106 (126) 100 01/09/20 07:18 98 Cool Aerosol 10.0 40 01/09/20 07:00 68 18 140/86 (104) 58 01/09/20 06:30 73 18 01/09/20 06:00 69 18 123/94 (104) 58 01/09/20 05:00 82 26 161/137 (145) 52 01/09/20 04:00 Venturi Mask 10.0 01/09/20 04:00 40 01/09/20 04:00 98.8 77 19 150/85 (106) 99 01/09/20 04:00 84 01/09/20 03:00 89 25 160/90 (113) 100 01/09/20 02:00 63 17 135/72 (93) 99 01/09/20 01:00 94 17 176/102 (126) 98 01/09/20 00:15 100 Cool Aerosol 10.0 40 01/09/20 00:00 40 01/09/20 00:00 40 01/09/20 00:00 99.0 86 25 167/99 (121) 98 01/09/20 00:00 92 01/09/20 00:00 Venturi Mask 10.0 01/08/20 23:00 78 17 153/91 (111) 96 01/08/20 22:00 92 22 172/99 (123) 100 01/08/20 21:00 88 19 172/126 (141) 92 01/08/20 20:00 98.7 90 17 170/92 (118) 94 01/08/20 20:00 Venturi Mask 10.0 01/08/20 20:00 40 01/08/20 20:00 87 01/08/20 19:10 100 Cool Aerosol 10.0 40 01/08/20 19:00 92 20 173/91 (118) 92 01/08/20 18:00 82 16 165/94 (117) 98 01/08/20 17:30 87 15 164/112 (129) 97 01/08/20 17:00 85 17 162/107 (125) 97 01/08/20 16:30 85 15 178/100 (126) 96 01/08/20 16:00 40 01/08/20 16:00 98.7 79 12 174/87 (116) 94 01/08/20 16:00 Venturi Mask 10.0 01/08/20 16:00 87 01/08/20 15:30 91 15 164/114 (131) 97 Intake and Output 01/08/20 01/09/20 19:00 07:00 Intake Total 1305.25 ml 911 ml Output Total 1850 ml 2100 ml Balance -544.75 ml -1189 ml IV Total 1305.25 ml 911 ml Output Urine Total 1850 ml 2100 ml Laboratory Tests 01/08/20 17:40: Vancomycin Level Trough 13.7H 01/09/20 05:00: White Blood Count 17.5H, Red Blood Count 4.01L, Hemoglobin 13.4L, Hematocrit 38.5L, Mean Corpuscular Volume 96, Mean Corpuscular Hemoglobin 33.5H, Mean Corpuscular Hemoglobin Concent 34.9, Red Cell Distribution Width 12.0, Platelet Count 210, Mean Platelet Volume 6.0L, Neutrophils (%) (Auto) 80.9H, Lymphocytes (%) (Auto) 6.3L, Monocytes (%) (Auto) 11.7H, Eosinophils (%) (Auto) 0.0, Basophils (%) (Auto) 1.1, Sodium Level 141, Potassium Level 2.9L, Chloride Level 101, Carbon Dioxide Level 30, Anion Gap 11, Blood Urea Nitrogen 14, Creatinine 0.9, Estimat Glomerular Filtration Rate > 60, Glucose Level 156H, Calcium Level 8.2L, Ammonia 26, Total Creatine Kinase 376H 01/09/20 10:27: Arterial Blood pH 7.484H, Arterial Blood Partial Pressure CO2 39.9, Arterial Blood Partial Pressure O2 105.0H, Arterial Blood HCO3 29.3H, Arterial Blood Oxygen Saturation 97.3, Arterial Blood Base Excess 5.5H, Juan Test Positive Height (Feet): 5 Height (Inches): 8.00 Weight (Pounds): 189 General Appearance: no apparent distress, alert EENT: normal ENT inspection Neck: normal alignment Cardiovascular: normal rate, regular rhythm Respiratory/Chest: decreased breath sounds Abdomen: non tender Edema: no edema noted Arm (L), no edema noted Arm (R), no edema noted Leg (L), no edema noted Leg (R), no edema noted Pedal (L), no edema noted Pedal (R), no edema noted Generalized Neurologic: [employer] team member II-XII grossly normal Francois Dickey MD Jan 09, 2020 15:05
--- NOTE | 2020-01-09 17:54 | Surgery Progress Note ---
Surgery Progress Note Subjective Procedure Performed Left femoral triple-lumen venous central catheter insertion Additional Comments no acute events exam stable doing better having conversation today states he feels well still confused as he states he needs to leave hospital now will likely pull out lines precaution Objective Last 24 Hour Vital Signs Date Time Temp Pulse Resp B/P (MAP) Pulse Ox O2 Delivery O2 Flow Rate FiO2 01/09/20 16:00 98.2 72 20 145/91 (109) 100 01/09/20 16:00 2.0 01/09/20 16:00 Nasal Cannula 2.0 01/09/20 15:00 64 26 144/86 (105) 100 01/09/20 14:00 84 28 159/89 (112) 100 01/09/20 13:00 82 22 150/99 (116) 100 01/09/20 12:00 2.0 01/09/20 12:00 61 01/09/20 12:00 98.8 70 20 133/94 (107) 100 01/09/20 12:00 Nasal Cannula 2.0 01/09/20 11:00 66 25 161/82 (108) 100 01/09/20 10:30 100 Nasal Cannula 2.0 28 01/09/20 10:00 80 23 155/105 (122) 100 01/09/20 09:00 91 20 174/110 (131) 100 01/09/20 08:00 40 01/09/20 08:00 70 01/09/20 08:00 Venturi Mask 10.0 01/09/20 08:00 98.5 77 20 168/106 (126) 100 01/09/20 07:18 98 Cool Aerosol 10.0 40 01/09/20 07:00 68 18 140/86 (104) 58 01/09/20 06:30 73 18 01/09/20 06:00 69 18 123/94 (104) 58 01/09/20 05:00 82 26 161/137 (145) 52 01/09/20 04:00 Venturi Mask 10.0 01/09/20 04:00 40 01/09/20 04:00 98.8 77 19 150/85 (106) 99 01/09/20 04:00 84 01/09/20 03:00 89 25 160/90 (113) 100 01/09/20 02:00 63 17 135/72 (93) 99 01/09/20 01:00 94 17 176/102 (126) 98 01/09/20 00:15 100 Cool Aerosol 10.0 40 01/09/20 00:00 40 01/09/20 00:00 40 01/09/20 00:00 99.0 86 25 167/99 (121) 98 01/09/20 00:00 92 01/09/20 00:00 Venturi Mask 10.0 01/08/20 23:00 78 17 153/91 (111) 96 01/08/20 22:00 92 22 172/99 (123) 100 01/08/20 21:00 88 19 172/126 (141) 92 01/08/20 20:00 98.7 90 17 170/92 (118) 94 01/08/20 20:00 Venturi Mask 10.0 01/08/20 20:00 40 01/08/20 20:00 87 01/08/20 19:10 100 Cool Aerosol 10.0 40 01/08/20 19:00 92 20 173/91 (118) 92 01/08/20 18:00 82 16 165/94 (117) 98 I&O Intake and Output 01/08/20 01/09/20 19:00 07:00 Intake Total 1305.25 ml 911 ml Output Total 1850 ml 2100 ml Balance -544.75 ml -1189 ml IV Total 1305.25 ml 911 ml Output Urine Total 1850 ml 2100 ml Dressing: dry Wound: clean Cardiovascular: RSR Respiratory: clear Abdomen: soft, non-tender, present bowel sounds, non-distended Extremities: no edema, no tenderness, no cyanosis Laboratory Tests Test 01/09/20 05:00 01/09/20 10:27 White Blood Count 17.5 K/UL (4.8-10.8) H Red Blood Count 4.01 M/UL (4.70-6.10) L Hemoglobin 13.4 G/DL (14.2-18.0) L Hematocrit 38.5 % (42.0-52.0) L Mean Corpuscular Volume 96 FL (80-99) Mean Corpuscular Hemoglobin 33.5 PG (27.0-31.0) H Mean Corpuscular Hemoglobin Concent 34.9 G/DL (32.0-36.0) Red Cell Distribution Width 12.0 % (11.6-14.8) Platelet Count 210 K/UL (150-450) Mean Platelet Volume 6.0 FL (6.5-10.1) L Neutrophils (%) (Auto) 80.9 % (45.0-75.0) H Lymphocytes (%) (Auto) 6.3 % (20.0-45.0) L Monocytes (%) (Auto) 11.7 % (1.0-10.0) H Eosinophils (%) (Auto) 0.0 % (0.0-3.0) Basophils (%) (Auto) 1.1 % (0.0-2.0) Sodium Level 141 MMOL/L (136-145) Potassium Level 2.9 MMOL/L (3.5-5.1) L Chloride Level 101 MMOL/L (98-107) Carbon Dioxide Level 30 MMOL/L (21-32) Anion Gap 11 mmol/L (5-15) Blood Urea Nitrogen 14 mg/dL (7-18) Creatinine 0.9 MG/DL (0.55-1.30) Estimat Glomerular Filtration Rate > 60 mL/min (>60) Glucose Level 156 MG/DL (74-106) H Calcium Level 8.2 MG/DL (8.5-10.1) L Ammonia 26 umol/L (11-32) Total Creatine Kinase 376 U/L (26-308) H Arterial Blood pH 7.484 (7.350-7.450) Arterial Blood Partial Pressure CO2 39.9 mmHg (35.0-45.0) Arterial Blood Partial Pressure O2 105.0 mmHg (75.0-100.0) H Arterial Blood HCO3 29.3 mmol/L (22.0-26.0) H Arterial Blood Oxygen Saturation 97.3 % (95-100) Arterial Blood Base Excess 5.5 (-2-2) H Juan Test Positive Plan Problems: (1) COPD (chronic obstructive pulmonary disease) Assessment & Plan: As per pulmonology doing well extubated (2) Hyperkalemia (3) Respiratory failure Assessment & Plan: Intubated intensive care unit on vent support Unable to be weaned at this time Chest x-ray noted Sedation wean vent as improving possible extubation soon extubated doing well talkative but confused downgrade (4) Rhabdomyolysis Assessment & Plan: IV fluid hydration Trend labs Improving (5) Elevated liver enzymes Assessment & Plan: Likely related to hypotension expressiveness originally. Improving with resuscitation. Likely shock. Hold on ultrasound tentatively Labs improving (6) LUDMILA (acute kidney injury) (7) Suspected COVID-19 virus infection Assessment & Plan: Continues to be ill appearing Pending swabs results initially PICC line placed and patient receiving medications through this but patient was able to pull through his restraints and with movement PICC line was dislodged patient unable to receive sedation medications and requiring urgent central venous catheter insertion. COVID negative Yousif Bates Jan 09, 2020 17:54
[2020-01-09] MEDS: Dyna-Hex 2% Top Sol 2oz TOPIC SCH (21:19)
[2020-01-09] MEDS: cefTRIAXone 1 GM in D5W 55 ML IV SCH (22:12)
[2020-01-10] VITALS: BP 157/105
[2020-01-10 04:00] VITALS: BP 153/91
[2020-01-10] MEDS: SODIUM CHLORIDE IVPB SCH ×2 (05:29→17:07)
[2020-01-10] MEDS: VANCOMYCIN IVPB SCH ×2 (05:29→17:07)
[2020-01-10] MEDS: NovoLOG Insulin Flexpen SUBQ SCH ×4 (06:19→21:00)
[2020-01-10 08:00] VITALS: BP 134/78
[2020-01-10] MEDS: Solu-MEDROL 40mg Inj IVP SCH (09:40)
[2020-01-10] MEDS: Heparin 5000 units/ml inj SUBQ SCH ×2 (10:06→20:16)
--- NOTE | 2020-01-10 10:25 | Pulmonology Progress Note ---
Assessment/Plan Assessment/Plan IMPRESSION: 1. Hyperkalemia. Corrected; now hypokalemic 2. Respiratory failure. Resolved. 3. Marked leukocytosis. persistent but lower 4. Chronic obstructive pulmonary disease. 5. History of hepatitis C. DISCUSSION: 1. Doing well on 2L/min O2 2. Will dc steroids 3. Add potassium. 4. Continue abx 5. DVT prophylaxis. 6. S/p extubation 7. Solu-Medrol 40 IV q.6 h. Will dc 8. Broad antibiotic coverage. 9. I will follow carefully. Hardik Medina M.D. Subjective Interval Events: Extubated; now on tele; has hypokalemia and leucocytosis Constitutional: Reports: no symptoms HEENT: Repors: no symptoms Respiratory: Reports: no symptoms Cardiovascular: Reports: no symptoms Gastrointestinal/Abdominal: Reports: no symptoms Allergies: Coded Allergies: UNABLE TO ASSESS (Unverified , 01/01/20) Objective Last 24 Hour Vital Signs Date Time Temp Pulse Resp B/P (MAP) Pulse Ox O2 Delivery O2 Flow Rate FiO2 01/10/20 08:00 4.0 01/10/20 08:00 96.8 80 19 134/78 (96) 98 01/10/20 06:17 82 20 01/10/20 04:00 58 01/10/20 04:00 98.4 82 20 153/91 (111) 96 01/10/20 03:57 2.0 01/10/20 03:45 Nasal Cannula 2.0 01/10/20 00:00 98.7 78 20 157/105 (122) 94 01/10/20 00:00 71 01/10/20 00:00 Nasal Cannula 2.0 01/10/20 00:00 2.0 01/09/20 23:00 98.9 70 22 150/89 (109) 98 01/09/20 22:00 Nasal Cannula 2.0 01/09/20 22:00 70 22 150/89 (109) 98 01/09/20 21:15 70 24 154/93 (113) 98 01/09/20 21:00 65 30 144/96 (112) 99 01/09/20 20:45 66 30 158/88 (111) 98 01/09/20 20:30 77 33 180/111 (134) 98 01/09/20 20:15 80 37 159/92 (114) 86 01/09/20 20:00 98.9 79 29 175/101 (125) 100 01/09/20 20:00 2.0 01/09/20 20:00 69 01/09/20 20:00 Nasal Cannula 2.0 01/09/20 19:35 100 Nasal Cannula 2.0 28 01/09/20 19:00 82 18 153/80 (104) 100 01/09/20 18:00 58 20 142/82 (102) 100 01/09/20 17:00 67 20 150/93 (112) 100 01/09/20 16:00 98.2 72 20 145/91 (109) 100 01/09/20 16:00 62 01/09/20 16:00 2.0 01/09/20 16:00 Nasal Cannula 2.0 01/09/20 15:00 64 26 144/86 (105) 100 01/09/20 14:00 84 28 159/89 (112) 100 01/09/20 13:00 82 22 150/99 (116) 100 01/09/20 12:00 2.0 01/09/20 12:00 61 01/09/20 12:00 98.8 70 20 133/94 (107) 100 01/09/20 12:00 Nasal Cannula 2.0 01/09/20 11:00 66 25 161/82 (108) 100 01/09/20 10:30 100 Nasal Cannula 2.0 28 Intake and Output 01/09/20 01/10/20 19:00 07:00 Intake Total 595 ml Output Total 930 ml 0 ml Balance -930 ml 595 ml Intake Oral 540 ml IV Total 55 ml Output Urine Total 930 ml 0 ml # Voids 2 # Bowel Movements 9 3 General Appearance: no acute distress HEENT: normocephalic Respiratory/Chest: chest wall non-tender, lungs clear Cardiovascular: normal peripheral pulses, normal rate Abdomen: normal bowel sounds Microbiology Date/Time Source Procedure Growth Status 01/08/20 08:15 Sputum AFB Specimen Processing Tissue - Final Resulted 01/08/20 08:15 Sputum Acid Fast Bacilli Smear - Final Resulted 01/08/20 08:15 Sputum Acid Fast Bacilli Culture Pending Resulted 01/09/20 16:00 Indwelling Cath Urine Culture - Preliminary NO GROWTH Resulted Laboratory Tests 01/09/20 10:27: Arterial Blood pH 7.484H, Arterial Blood Partial Pressure CO2 39.9, Arterial Blood Partial Pressure O2 105.0H, Arterial Blood HCO3 29.3H, Arterial Blood Oxygen Saturation 97.3, Arterial Blood Base Excess 5.5H, Juan Test Positive Current Medications Medications (Trade) Dose Ordered Sig/Samia Route PRN Reason Start Time Stop Time Status Last Admin Dose Admin Acetaminophen (Tylenol) 650 mg Q4H PRN ORAL fever 01/01/20 19:45 01/31/20 19:44 01/02/20 17:51 Acetaminophen (Tylenol) 650 mg Q4H PRN ORAL Mild Pain (Pain Scale 1-3) 01/01/20 19:45 01/31/20 19:44 01/08/20 12:48 Acetaminophen (Tylenol) 650 mg Q4H PRN RECTAL Mild Pain (Pain Scale 1-3) 01/01/20 19:45 01/31/20 19:44 Acetaminophen (Tylenol) 650 mg Q4H PRN RECTAL fever 01/01/20 19:45 01/31/20 19:44 Ceftriaxone Sodium 1 gm/ Dextrose 55 ml @ 110 mls/hr Q24H IV 01/01/20 22:00 01/12/20 21:59 01/09/20 22:12 Chlorhexidine Gluconate (Bhavana-Hex 2%) 1 applic DAILY@2000 TOPIC 01/02/20 20:00 04/01/20 19:59 01/09/20 21:19 Clonidine HCl (Catapres TTS-3) 1 patch QWEEK TDERMAL 01/07/20 15:00 04/06/20 14:59 01/07/20 14:21 Dextrose (Dextrose 50%) 25 ml Q30M PRN IV Hypoglycemia 01/06/20 11:30 04/05/20 11:29 Dextrose (Dextrose 50%) 50 ml Q30M PRN IV Hypoglycemia 01/06/20 11:30 04/05/20 11:29 Famotidine (Pepcid I.v.) 20 mg Q12HR IVP 01/01/20 21:00 01/31/20 20:59 01/10/20 09:40 Haloperidol Lactate 5 mg/ Dextrose 56 ml @ 224 mls/hr Q6H PRN IVPB Agitation 01/03/20 10:00 02/17/20 09:59 01/09/20 04:57 Heparin Sodium (Porcine) (Heparin 5000 units/ml) 5,000 units EVERY 12 HOURS SUBQ 01/01/20 21:00 02/15/20 20:59 01/10/20 10:06 Insulin Aspart (NovoLOG) BEFORE MEALS AND HS SUBQ 01/06/20 11:30 04/05/20 11:29 01/09/20 05:50 Methylprednisolone Sodium Succinate (Solu-MEDROL) 20 mg BID IVP 01/09/20 18:00 04/01/20 13:59 01/10/20 09:40 Nitroglycerin (Ntg) 0.4 mg Q5M PRN SL Prn Chest Pain 01/01/20 19:45 01/31/20 19:44 Ondansetron HCl (Zofran) 4 mg Q6H PRN IVP Nausea & Vomiting 01/01/20 19:45 01/31/20 19:44 Polyethylene Glycol (Miralax) 17 gm DAILYPRN PRN ORAL Constipation 01/01/20 19:45 01/31/20 19:44 Potassium Chloride 100 ml @ 100 mls/hr QID IVPB 01/07/20 18:00 04/06/20 17:59 01/10/20 09:41 Vancomycin HCl (Vanco rx to dose) 1 ea DAILY PRN MISC Per rx protocol 01/03/20 18:15 02/02/20 18:14 Vancomycin HCl 1.75 gm/Sodium Chloride 550 ml @ 275 mls/hr Q12H IVPB 01/09/20 06:00 01/14/20 05:59 01/10/20 05:29 Hardik Medina MD Jan 10, 2020 10:25
[2020-01-10 12:00] VITALS: BP 130/69
--- NOTE | 2020-01-10 12:18 | General Progress Note ---
Assessment/Plan Problem List: (1) Rhabdomyolysis ICD Codes: M62.82 - Rhabdomyolysis SNOMED: 682097053 (2) Elevated liver enzymes ICD Codes: R74.8 - Abnormal levels of other serum enzymes SNOMED: 515405226 (3) Hyperkalemia ICD Codes: E87.5 - Hyperkalemia SNOMED: 78580302 (4) LUDMILA (acute kidney injury) ICD Codes: N17.9 - Acute kidney failure, unspecified SNOMED: 0200033, 88370298 (5) Suspected COVID-19 virus infection ICD Codes: R68.89 - Other general symptoms and signs SNOMED: 448224167 (6) COPD (chronic obstructive pulmonary disease) ICD Codes: J44.9 - Chronic obstructive pulmonary disease, unspecified SNOMED: 32330765 (7) Respiratory failure ICD Codes: J96.90 - Respiratory failure, unspecified, unspecified whether with hypoxia or hypercapnia SNOMED: 046566255 (8) Drug abuse ICD Codes: F19.10 - Other psychoactive substance abuse, uncomplicated SNOMED: 89844850 (9) Staphylococcal septicemia Assessment & Plan: staph hemolyticus likely contaminant ICD Codes: A41.2 - Sepsis due to unspecified staphylococcus SNOMED: 18757015, 232829985014 (10) Metabolic encephalopathy ICD Codes: G93.41 - Metabolic encephalopathy SNOMED: 95151408 Assessment/Plan: extubated, answers questions, less dyspneic, still high risk, to mobilize, restless, trying to gain cooperation, PT eeval lab pending Subjective Constitutional: Reports: weakness HEENT: Reports: no symptoms Cardiovascular: Reports: no symptoms Respiratory: Reports: cough, shortness of breath Gastrointestinal/Abdominal: Reports: no symptoms Neurologic/Psychiatric: Reports: no symptoms Endocrine: Reports: no symptoms Allergies: Coded Allergies: UNABLE TO ASSESS (Unverified , 01/01/20) Subjective alert extubated anxious Objective Last 24 Hour Vital Signs Date Time Temp Pulse Resp B/P (MAP) Pulse Ox O2 Delivery O2 Flow Rate FiO2 01/10/20 08:00 4.0 01/10/20 08:00 96.8 80 19 134/78 (96) 98 01/10/20 06:17 82 20 01/10/20 04:00 58 01/10/20 04:00 98.4 82 20 153/91 (111) 96 01/10/20 03:57 2.0 01/10/20 03:45 Nasal Cannula 2.0 01/10/20 00:00 98.7 78 20 157/105 (122) 94 01/10/20 00:00 71 01/10/20 00:00 Nasal Cannula 2.0 01/10/20 00:00 2.0 01/09/20 23:00 98.9 70 22 150/89 (109) 98 01/09/20 22:00 Nasal Cannula 2.0 01/09/20 22:00 70 22 150/89 (109) 98 01/09/20 21:15 70 24 154/93 (113) 98 01/09/20 21:00 65 30 144/96 (112) 99 01/09/20 20:45 66 30 158/88 (111) 98 01/09/20 20:30 77 33 180/111 (134) 98 01/09/20 20:15 80 37 159/92 (114) 86 01/09/20 20:00 98.9 79 29 175/101 (125) 100 01/09/20 20:00 2.0 01/09/20 20:00 69 01/09/20 20:00 Nasal Cannula 2.0 01/09/20 19:35 100 Nasal Cannula 2.0 28 01/09/20 19:00 82 18 153/80 (104) 100 01/09/20 18:00 58 20 142/82 (102) 100 01/09/20 17:00 67 20 150/93 (112) 100 01/09/20 16:00 98.2 72 20 145/91 (109) 100 01/09/20 16:00 62 01/09/20 16:00 2.0 01/09/20 16:00 Nasal Cannula 2.0 01/09/20 15:00 64 26 144/86 (105) 100 01/09/20 14:00 84 28 159/89 (112) 100 01/09/20 13:00 82 22 150/99 (116) 100 Intake and Output 01/09/20 01/10/20 19:00 07:00 Intake Total 595 ml Output Total 930 ml 0 ml Balance -930 ml 595 ml Intake Oral 540 ml IV Total 55 ml Output Urine Total 930 ml 0 ml # Voids 2 # Bowel Movements 9 3 Laboratory Tests 01/10/20 11:35: White Blood Count [Pending], Red Blood Count [Pending], Hemoglobin [Pending], Hematocrit [Pending], Mean Corpuscular Volume [Pending], Mean Corpuscular Hemoglobin [Pending], Mean Corpuscular Hemoglobin Concent [Pending], Red Cell Distribution Width [Pending], Platelet Count [Pending], Mean Platelet Volume [ Pending], Neutrophils (%) (Auto) [Pending], Lymphocytes (%) (Auto) [Pending], Monocytes (%) (Auto) [Pending], Eosinophils (%) (Auto) [Pending], Basophils (%) (Auto) [Pending], Sodium Level [Pending], Potassium Level [Pending], Chloride Level [Pending], Carbon Dioxide Level [Pending], Blood Urea Nitrogen [Pending], Creatinine [Pending], Estimat Glomerular Filtration Rate [Pending], Glucose Level [Pending], Calcium Level [Pending], Phosphorus Level [Pending], Magnesium Level [Pending], Total Bilirubin [Pending], Aspartate Amino Transf (AST/SGOT) [ Pending], Alanine Aminotransferase (ALT/SGPT) [Pending], Alkaline Phosphatase [ Pending], Total Creatine Kinase [Pending], Total Protein [Pending], Albumin [ Pending], Globulin [Pending] Height (Feet): 5 Height (Inches): 8.00 Weight (Pounds): 192 General Appearance: no apparent distress, alert EENT: normal ENT inspection Neck: normal alignment Cardiovascular: regular rhythm Respiratory/Chest: decreased breath sounds Abdomen: non tender Neurologic: lease analyst II-XII grossly normal Francois Dickey MD Jan 10, 2020 12:18
[2020-01-10 12:21] LABS: EOSINOPHILS % (AUTO) 0.8 % (0.0-3.0); HEMATOCRIT 38.1 % (42.0-52.0); HEMOGLOBIN 13.3 G/DL (14.2-18.0); LYMPHOCYTES % (AUTO) 7.3 % (20.0-45.0); MEAN CORPUSCULAR VOLUME 95 FL (80-99); MONOCYTES % (AUTO) 9.1 % (1.0-10.0); NEUTROPHILS % (AUTO) 81.9 % (45.0-75.0); PLATELET COUNT 209 K/UL (150-450); RED BLOOD COUNT 4.01 M/UL (4.70-6.10); RED CELL DISTRIBUTION WIDTH 11.8 % (11.6-14.8); WHITE BLOOD COUNT 16.1 K/UL (4.8-10.8)
[2020-01-10 12:34] LABS: ALANINE AMINOTRANSFERASE 54 U/L (12-78); ALBUMIN 2.6 G/DL (3.4-5.0); ALBUMIN/GLOBULIN RATIO 0.8 (1.0-2.7); ALKALINE PHOSPHATASE 51 U/L (46-116); ANION GAP 9 mmol/L (5-15); ASPARTATE AMINO TRANSFERASE 23 U/L (15-37); BILIRUBIN,TOTAL 0.8 MG/DL (0.2-1.0); BLOOD UREA NITROGEN 17 mg/dL (7-18); CALCIUM 8.3 MG/DL (8.5-10.1); CARBON DIOXIDE 26 MMOL/L (21-32); CHLORIDE 105 MMOL/L (98-107); CREATINE KINASE 284 U/L (26-308); CREATININE 0.7 MG/DL (0.55-1.30); PHOSPHORUS 2.2 MG/DL (2.5-4.9); POTASSIUM 2.8 MMOL/L (3.5-5.1); SODIUM 140 MMOL/L (136-145)
--- NOTE | 2020-01-10 12:47 | Surgery Progress Note ---
Surgery Progress Note Subjective Procedure Performed Left femoral triple-lumen venous central catheter insertion Symptoms: improved Objective Last 24 Hour Vital Signs Date Time Temp Pulse Resp B/P (MAP) Pulse Ox O2 Delivery O2 Flow Rate FiO2 01/10/20 08:00 4.0 01/10/20 08:00 96.8 80 19 134/78 (96) 98 01/10/20 06:17 82 20 01/10/20 04:00 58 01/10/20 04:00 98.4 82 20 153/91 (111) 96 01/10/20 03:57 2.0 01/10/20 03:45 Nasal Cannula 2.0 01/10/20 00:00 98.7 78 20 157/105 (122) 94 01/10/20 00:00 71 01/10/20 00:00 Nasal Cannula 2.0 01/10/20 00:00 2.0 01/09/20 23:00 98.9 70 22 150/89 (109) 98 01/09/20 22:00 Nasal Cannula 2.0 01/09/20 22:00 70 22 150/89 (109) 98 01/09/20 21:15 70 24 154/93 (113) 98 01/09/20 21:00 65 30 144/96 (112) 99 01/09/20 20:45 66 30 158/88 (111) 98 01/09/20 20:30 77 33 180/111 (134) 98 01/09/20 20:15 80 37 159/92 (114) 86 01/09/20 20:00 98.9 79 29 175/101 (125) 100 01/09/20 20:00 2.0 01/09/20 20:00 69 01/09/20 20:00 Nasal Cannula 2.0 01/09/20 19:35 100 Nasal Cannula 2.0 28 01/09/20 19:00 82 18 153/80 (104) 100 01/09/20 18:00 58 20 142/82 (102) 100 01/09/20 17:00 67 20 150/93 (112) 100 01/09/20 16:00 98.2 72 20 145/91 (109) 100 01/09/20 16:00 62 01/09/20 16:00 2.0 01/09/20 16:00 Nasal Cannula 2.0 01/09/20 15:00 64 26 144/86 (105) 100 01/09/20 14:00 84 28 159/89 (112) 100 01/09/20 13:00 82 22 150/99 (116) 100 I&O Intake and Output 01/09/20 01/10/20 19:00 07:00 Intake Total 595 ml Output Total 930 ml 0 ml Balance -930 ml 595 ml Intake Oral 540 ml IV Total 55 ml Output Urine Total 930 ml 0 ml # Voids 2 # Bowel Movements 9 3 Dressing: dry Wound: clean Cardiovascular: RSR Respiratory: clear, decreased breath sounds Abdomen: soft, present bowel sounds Extremities: no cyanosis Laboratory Tests Test 01/10/20 11:35 White Blood Count 16.1 K/UL (4.8-10.8) H Red Blood Count 4.01 M/UL (4.70-6.10) L Hemoglobin 13.3 G/DL (14.2-18.0) L Hematocrit 38.1 % (42.0-52.0) L Mean Corpuscular Volume 95 FL (80-99) Mean Corpuscular Hemoglobin 33.0 PG (27.0-31.0) H Mean Corpuscular Hemoglobin Concent 34.8 G/DL (32.0-36.0) Red Cell Distribution Width 11.8 % (11.6-14.8) Platelet Count 209 K/UL (150-450) Mean Platelet Volume 5.8 FL (6.5-10.1) L Neutrophils (%) (Auto) 81.9 % (45.0-75.0) H Lymphocytes (%) (Auto) 7.3 % (20.0-45.0) L Monocytes (%) (Auto) 9.1 % (1.0-10.0) Eosinophils (%) (Auto) 0.8 % (0.0-3.0) Basophils (%) (Auto) 1.0 % (0.0-2.0) Sodium Level Pending Potassium Level Pending Chloride Level Pending Carbon Dioxide Level Pending Blood Urea Nitrogen Pending Creatinine Pending Estimat Glomerular Filtration Rate Pending Glucose Level Pending Calcium Level Pending Phosphorus Level Pending Magnesium Level Pending Total Bilirubin Pending Aspartate Amino Transf (AST/SGOT) Pending Alanine Aminotransferase (ALT/SGPT) Pending Alkaline Phosphatase Pending Total Creatine Kinase Pending Total Protein Pending Albumin Pending Globulin Pending Plan Problems: (1) COPD (chronic obstructive pulmonary disease) Assessment & Plan: As per pulmonology doing well extubated (2) Hyperkalemia (3) Respiratory failure Assessment & Plan: Intubated intensive care unit on vent support Unable to be weaned at this time Chest x-ray noted Sedation wean vent as improving possible extubation soon extubated doing well talkative but confused downgrade (4) Rhabdomyolysis Assessment & Plan: IV fluid hydration Trend labs Improving (5) Elevated liver enzymes Assessment & Plan: Likely related to hypotension expressiveness originally. Improving with resuscitation. Likely shock. Hold on ultrasound tentatively Labs improving (6) LUDMILA (acute kidney injury) (7) Suspected COVID-19 virus infection Assessment & Plan: Continues to be ill appearing Pending swabs results initially PICC line placed and patient receiving medications through this but patient was able to pull through his restraints and with movement PICC line was dislodged patient unable to receive sedation medications and requiring urgent central venous catheter insertion. COVID negative Yousif Bates Jan 10, 2020 12:47
[2020-01-10 16:00] VITALS: BP 140/63
[2020-01-10 20:00] VITALS: BP 137/98
[2020-01-10] MEDS: Dyna-Hex 2% Top Sol 2oz TOPIC SCH (20:16)
[2020-01-10] MEDS: cefTRIAXone 1 GM in D5W 55 ML IV SCH (21:06)
[2020-01-10] MEDS: Vancomycin 1.5gm/NS Premix q24h IVPB SCH (22:26)
[2020-01-11] VITALS: BP 133/82
[2020-01-11 04:00] VITALS: BP 128/88
[2020-01-11] MEDS ORDERED: Vancomycin 1.5gm/NS Premix q24h IVPB SCH (06:00)
[2020-01-11] MEDS: NovoLOG Insulin Flexpen SUBQ SCH (06:30)
[2020-01-11 08:00] VITALS: BP 157/95
[2020-01-11 08:19] LABS: BASOPHILS % (AUTO) 1.4 % (0.0-2.0); EOSINOPHILS % (AUTO) 1.8 % (0.0-3.0); HEMATOCRIT 38.8 % (42.0-52.0); HEMOGLOBIN 13.4 G/DL (14.2-18.0); LYMPHOCYTES % (AUTO) 12.8 % (20.0-45.0); MEAN CORPUSCULAR VOLUME 96 FL (80-99); MONOCYTES % (AUTO) 14.1 % (1.0-10.0); PLATELET COUNT 240 K/UL (150-450); RED BLOOD COUNT 4.06 M/UL (4.70-6.10); WHITE BLOOD COUNT 16.1 K/UL (4.8-10.8)
[2020-01-11 08:21] LABS: ALANINE AMINOTRANSFERASE 51 U/L (12-78); ALBUMIN 2.6 G/DL (3.4-5.0); ALBUMIN/GLOBULIN RATIO 0.7 (1.0-2.7); ALKALINE PHOSPHATASE 51 U/L (46-116); ANION GAP 8 mmol/L (5-15); ASPARTATE AMINO TRANSFERASE 32 U/L (15-37); BLOOD UREA NITROGEN 16 mg/dL (7-18); CALCIUM 8.3 MG/DL (8.5-10.1); CARBON DIOXIDE 26 MMOL/L (21-32); CHLORIDE 104 MMOL/L (98-107); CREATINE KINASE 275 U/L (26-308); CREATININE 0.8 MG/DL (0.55-1.30); POTASSIUM 4.4 MMOL/L (3.5-5.1); SODIUM 138 MMOL/L (136-145)
[2020-01-11] MEDS: Vancomycin 1.5gm/NS Premix q24h IVPB SCH ×2 (09:44→21:38)
[2020-01-11] MEDS: Heparin 5000 units/ml inj SUBQ SCH ×2 (09:52→21:41)
[2020-01-11] MEDS ORDERED: Albuterol ud Inhalation HHN PRN (10:15)
--- NOTE | 2020-01-11 10:53 | Pulmonology Progress Note ---
Assessment/Plan Assessment/Plan IMPRESSION: 1. Transferred to [facility] 2. Respiratory failure. Resolved. 3. Marked leukocytosis. persistent but lower 4. Chronic obstructive pulmonary disease. 5. History of hepatitis C. DISCUSSION: 1. Doing well on 2L/min O2 2. Off steroids 3. K adjustment 4. Continue abx 5. DVT prophylaxis. 6. S/p extubation 7. Diet per PMD 8. Broad antibiotic coverage. 9. I will follow carefully. Hardik Medina M.D. Subjective Interval Events: None new Constitutional: Reports: no symptoms HEENT: Repors: no symptoms Respiratory: Reports: no symptoms Cardiovascular: Reports: no symptoms Allergies: Coded Allergies: UNABLE TO ASSESS (Unverified , 01/01/20) Objective Last 24 Hour Vital Signs Date Time Temp Pulse Resp B/P (MAP) Pulse Ox O2 Delivery O2 Flow Rate FiO2 01/11/20 08:00 2.0 01/11/20 08:00 78 01/11/20 08:00 97.7 76 20 157/95 (115) 94 01/11/20 04:00 2.0 01/11/20 04:00 97.5 70 18 128/88 (101) 97 01/11/20 04:00 Nasal Cannula 4.0 01/11/20 03:44 70 01/11/20 00:00 2.0 01/11/20 00:00 96.8 70 18 133/82 (99) 97 01/10/20 23:31 50 01/10/20 20:52 Nasal Cannula 2.0 01/10/20 20:00 96.8 70 18 137/98 (111) 97 01/10/20 20:00 2.0 01/10/20 19:52 77 01/10/20 16:00 Nasal Cannula 2.0 01/10/20 16:00 64 01/10/20 16:00 2.0 01/10/20 16:00 96.8 77 18 140/63 (88) 97 01/10/20 12:00 98.1 72 18 130/69 (89) 96 01/10/20 12:00 2.0 01/10/20 12:00 59 01/10/20 12:00 Nasal Cannula 2.0 Intake and Output 01/10/20 01/11/20 19:00 07:00 Intake Total 865.0 ml Balance 865.0 ml Intake Oral 480 ml IV Total 385.0 ml # Voids 2 # Bowel Movements 4 General Appearance: no acute distress HEENT: normocephalic Respiratory/Chest: chest wall non-tender, lungs clear Cardiovascular: normal peripheral pulses, normal rate Abdomen: normal bowel sounds Extremities: no cyanosis Microbiology Date/Time Source Procedure Growth Status 01/09/20 06:00 Sputum AFB Specimen Processing Tissue - Final Resulted 01/09/20 06:00 Sputum Acid Fast Bacilli Smear - Final Resulted 01/09/20 06:00 Sputum Acid Fast Bacilli Culture Pending Resulted 01/09/20 16:00 Indwelling Cath Urine Culture - Preliminary NO GROWTH AFTER 24 HOURS Resulted Laboratory Tests 01/10/20 11:35: White Blood Count 16.1H, Red Blood Count 4.01L, Hemoglobin 13.3L, Hematocrit 38.1L, Mean Corpuscular Volume 95, Mean Corpuscular Hemoglobin 33.0H, Mean Corpuscular Hemoglobin Concent 34.8, Red Cell Distribution Width 11.8, Platelet Count 209, Mean Platelet Volume 5.8L, Neutrophils (%) (Auto) 81.9H, Lymphocytes (%) (Auto) 7.3L, Monocytes (%) (Auto) 9.1, Eosinophils (%) (Auto) 0.8, Basophils (%) (Auto) 1.0, Sodium Level 140, Potassium Level 2.8L, Chloride Level 105, Carbon Dioxide Level 26, Anion Gap 9, Blood Urea Nitrogen 17, Creatinine 0.7, Estimat Glomerular Filtration Rate > 60, Glucose Level 118H, Calcium Level 8.3L, Phosphorus Level 2.2L, Magnesium Level 2.4, Total Bilirubin 0.8, Aspartate Amino Transf (AST/SGOT) 23, Alanine Aminotransferase (ALT/SGPT) 54, Alkaline Phosphatase 51, Total Creatine Kinase 284, Total Protein 5.8L, Albumin 2.6L, Globulin 3.2, Albumin/Globulin Ratio 0.8L 01/10/20 18:00: Vancomycin Level Trough 25.6H 01/10/20 19:30: Random Vancomycin Level 18.0 01/11/20 07:14: White Blood Count 16.1H, Red Blood Count 4.06L, Hemoglobin 13.4L, Hematocrit 38.8L, Mean Corpuscular Volume 96, Mean Corpuscular Hemoglobin 33.1H, Mean Corpuscular Hemoglobin Concent 34.6, Red Cell Distribution Width 12.0, Platelet Count 240, Mean Platelet Volume 6.0L, Neutrophils (%) (Auto) 70.0, Lymphocytes ( %) (Auto) 12.8L, Monocytes (%) (Auto) 14.1H, Eosinophils (%) (Auto) 1.8, Basophils (%) (Auto) 1.4, Sodium Level 138, Potassium Level 4.4#, Chloride Level 104, Carbon Dioxide Level 26, Anion Gap 8, Blood Urea Nitrogen 16, Creatinine 0.8, Estimat Glomerular Filtration Rate > 60, Glucose Level 86, Calcium Level 8.3L, Total Bilirubin 1.0, Aspartate Amino Transf (AST/SGOT) 32, Alanine Aminotransferase (ALT/SGPT) 51, Alkaline Phosphatase 51, Total Creatine Kinase 275, Total Protein 6.1L, Albumin 2.6L, Globulin 3.5, Albumin/Globulin Ratio 0.7L Current Medications Medications (Trade) Dose Ordered Sig/Samia Route PRN Reason Start Time Stop Time Status Last Admin Dose Admin Acetaminophen (Tylenol) 650 mg Q4H PRN ORAL fever 01/01/20 19:45 01/31/20 19:44 01/02/20 17:51 Acetaminophen (Tylenol) 650 mg Q4H PRN ORAL Mild Pain (Pain Scale 1-3) 01/01/20 19:45 01/31/20 19:44 01/08/20 12:48 Acetaminophen (Tylenol) 650 mg Q4H PRN RECTAL Mild Pain (Pain Scale 1-3) 01/01/20 19:45 01/31/20 19:44 Acetaminophen (Tylenol) 650 mg Q4H PRN RECTAL fever 01/01/20 19:45 01/31/20 19:44 Albuterol Sulfate (Proventil) 2.5 mg Q4H PRN HHN shortness of breath 01/11/20 10:15 01/16/20 10:14 Ceftriaxone Sodium 1 gm/ Dextrose 55 ml @ 110 mls/hr Q24H IV 01/01/20 22:00 01/12/20 21:59 01/10/20 21:06 Chlorhexidine Gluconate (Bhavana-Hex 2%) 1 applic DAILY@2000 TOPIC 01/02/20 20:00 04/01/20 19:59 01/10/20 20:16 Clonidine HCl (Catapres TTS-3) 1 patch QWEEK TDERMAL 01/07/20 15:00 04/06/20 14:59 01/07/20 14:21 Dextrose (Dextrose 50%) 25 ml Q30M PRN IV Hypoglycemia 01/06/20 11:30 04/05/20 11:29 Dextrose (Dextrose 50%) 50 ml Q30M PRN IV Hypoglycemia 01/06/20 11:30 04/05/20 11:29 Famotidine (Pepcid I.v.) 20 mg Q12HR IVP 01/01/20 21:00 01/31/20 20:59 01/11/20 09:45 Furosemide (Lasix) 40 mg DAILY ORAL 01/11/20 11:00 02/10/20 10:59 Haloperidol Lactate 5 mg/ Dextrose 56 ml @ 224 mls/hr Q6H PRN IVPB Agitation 01/03/20 10:00 02/17/20 09:59 01/09/20 04:57 Heparin Sodium (Porcine) (Heparin 5000 units/ml) 5,000 units EVERY 12 HOURS SUBQ 01/01/20 21:00 02/15/20 20:59 01/11/20 09:52 Losartan Potassium (Cozaar) 100 mg DAILY ORAL 01/11/20 11:00 02/10/20 10:59 Nitroglycerin (Ntg) 0.4 mg Q5M PRN SL Prn Chest Pain 01/01/20 19:45 01/31/20 19:44 Ondansetron HCl (Zofran) 4 mg Q6H PRN IVP Nausea & Vomiting 01/01/20 19:45 01/31/20 19:44 Polyethylene Glycol (Miralax) 17 gm DAILYPRN PRN ORAL Constipation 01/01/20 19:45 01/31/20 19:44 Potassium Chloride (K-Dur) 20 meq DAILY ORAL 01/11/20 11:00 04/10/20 10:59 Vancomycin HCl (Vanco rx to dose) 1 ea DAILY PRN MISC Per rx protocol 01/03/20 18:15 02/02/20 18:14 Vancomycin/Sodium Chloride 275 ml @ 137.5 mls/ hr Q12H IVPB 01/10/20 22:00 01/15/20 21:59 01/11/20 09:44 Hardik Medina MD Jan 11, 2020 10:53
[2020-01-11 11:30] VITALS: BP 146/77
--- NOTE | 2020-01-11 11:58 | Diagnostic Imaging Report ---
Indication: Shortness of breath Technique: One view of the chest Comparison: January 06, 2020 Findings: Previously demonstrated endotracheal tube has been removed. The lungs are currently clear, previously demonstrated interstitial opacities have resolved. There is some blunting of the bilateral costophrenic angles. The heart size is normal. Impression: Since 01/06/2020, interim marked improvement of previously demonstrated parenchymal disease, now largely resolved. Suspect small bilateral pleural effusions Interim extubation
[2020-01-11] MEDS: Furosemide 40mg tab ORAL SCH (13:09)
[2020-01-11] MEDS: Losartan 50mg tab ORAL SCH (13:09)
--- NOTE | 2020-01-11 13:34 | Surgery Progress Note ---
Surgery Progress Note Subjective Procedure Performed Left femoral triple-lumen venous central catheter insertion Additional Comments no acute events improving downgraded comfortable labs noted persistent leukocytosis on abx cxr reviewed Objective Last 24 Hour Vital Signs Date Time Temp Pulse Resp B/P (MAP) Pulse Ox O2 Delivery O2 Flow Rate FiO2 01/11/20 13:09 157/95 01/11/20 09:00 Nasal Cannula 4.0 01/11/20 08:00 2.0 01/11/20 08:00 78 01/11/20 08:00 97.7 76 20 157/95 (115) 94 01/11/20 04:00 2.0 01/11/20 04:00 97.5 70 18 128/88 (101) 97 01/11/20 04:00 Nasal Cannula 4.0 01/11/20 03:44 70 01/11/20 00:00 2.0 01/11/20 00:00 96.8 70 18 133/82 (99) 97 01/10/20 23:31 50 01/10/20 20:52 Nasal Cannula 2.0 01/10/20 20:00 96.8 70 18 137/98 (111) 97 01/10/20 20:00 2.0 01/10/20 19:52 77 01/10/20 16:00 Nasal Cannula 2.0 01/10/20 16:00 64 01/10/20 16:00 2.0 01/10/20 16:00 96.8 77 18 140/63 (88) 97 I&O Intake and Output 01/10/20 01/11/20 19:00 07:00 Intake Total 865.0 ml Balance 865.0 ml Intake Oral 480 ml IV Total 385.0 ml # Voids 2 # Bowel Movements 4 Dressing: dry Wound: clean Cardiovascular: RSR Respiratory: clear Abdomen: soft, non-tender, present bowel sounds Extremities: no edema, no tenderness, no cyanosis Laboratory Tests Test 01/10/20 18:00 01/10/20 19:30 01/11/20 07:14 Vancomycin Level Trough 25.6 ug/mL (5.0-12.0) H Random Vancomycin Level 18.0 ug/mL White Blood Count 16.1 K/UL (4.8-10.8) H Red Blood Count 4.06 M/UL (4.70-6.10) L Hemoglobin 13.4 G/DL (14.2-18.0) L Hematocrit 38.8 % (42.0-52.0) L Mean Corpuscular Volume 96 FL (80-99) Mean Corpuscular Hemoglobin 33.1 PG (27.0-31.0) H Mean Corpuscular Hemoglobin Concent 34.6 G/DL (32.0-36.0) Red Cell Distribution Width 12.0 % (11.6-14.8) Platelet Count 240 K/UL (150-450) Mean Platelet Volume 6.0 FL (6.5-10.1) L Neutrophils (%) (Auto) 70.0 % (45.0-75.0) Lymphocytes (%) (Auto) 12.8 % (20.0-45.0) L Monocytes (%) (Auto) 14.1 % (1.0-10.0) H Eosinophils (%) (Auto) 1.8 % (0.0-3.0) Basophils (%) (Auto) 1.4 % (0.0-2.0) Sodium Level 138 MMOL/L (136-145) Potassium Level 4.4 MMOL/L (3.5-5.1) # Chloride Level 104 MMOL/L (98-107) Carbon Dioxide Level 26 MMOL/L (21-32) Anion Gap 8 mmol/L (5-15) Blood Urea Nitrogen 16 mg/dL (7-18) Creatinine 0.8 MG/DL (0.55-1.30) Estimat Glomerular Filtration Rate > 60 mL/min (>60) Glucose Level 86 MG/DL (74-106) Calcium Level 8.3 MG/DL (8.5-10.1) L Total Bilirubin 1.0 MG/DL (0.2-1.0) Aspartate Amino Transf (AST/SGOT) 32 U/L (15-37) Alanine Aminotransferase (ALT/SGPT) 51 U/L (12-78) Alkaline Phosphatase 51 U/L (46-116) Total Creatine Kinase 275 U/L (26-308) Total Protein 6.1 G/DL (6.4-8.2) L Albumin 2.6 G/DL (3.4-5.0) L Globulin 3.5 g/dL Albumin/Globulin Ratio 0.7 (1.0-2.7) L Plan Problems: (1) COPD (chronic obstructive pulmonary disease) Assessment & Plan: As per pulmonology doing well extubated (2) Hyperkalemia (3) Respiratory failure Assessment & Plan: Intubated intensive care unit on vent support Unable to be weaned at this time Chest x-ray noted Sedation wean vent as improving possible extubation soon extubated doing well talkative but confused downgrade recovering labs noted cont abx (4) Rhabdomyolysis Assessment & Plan: IV fluid hydration Trend labs Improving (5) Elevated liver enzymes Assessment & Plan: Likely related to hypotension expressiveness originally. Improving with resuscitation. Likely shock. Hold on ultrasound tentatively Labs improving (6) LUDMILA (acute kidney injury) (7) Suspected COVID-19 virus infection Assessment & Plan: Continues to be ill appearing Pending swabs results initially PICC line placed and patient receiving medications through this but patient was able to pull through his restraints and with movement PICC line was dislodged patient unable to receive sedation medications and requiring urgent central venous catheter insertion. COVID negative Additional Comments may remove line Yousif Bates Jan 11, 2020 13:33
[2020-01-11 16:00] VITALS: BP 154/78
[2020-01-11 20:00] VITALS: BP 150/89
[2020-01-11] MEDS: Dyna-Hex 2% Top Sol 2oz TOPIC SCH (21:38)
[2020-01-11] MEDS: cefTRIAXone 1 GM in D5W 55 ML IV SCH (21:38)
[2020-01-12] VITALS: BP 154/99
[2020-01-12 04:00] VITALS: BP 148/87
[2020-01-12 07:53] LABS: BASOPHILS % (AUTO) 0.9 % (0.0-2.0); EOSINOPHILS % (AUTO) 2.4 % (0.0-3.0); HEMATOCRIT 37.5 % (42.0-52.0); HEMOGLOBIN 13.1 G/DL (14.2-18.0); LYMPHOCYTES % (AUTO) 14.8 % (20.0-45.0); MEAN CORPUSCULAR VOLUME 94 FL (80-99); MONOCYTES % (AUTO) 14.4 % (1.0-10.0); NEUTROPHILS % (AUTO) 67.4 % (45.0-75.0); PLATELET COUNT 255 K/UL (150-450); RED BLOOD COUNT 3.98 M/UL (4.70-6.10); RED CELL DISTRIBUTION WIDTH 11.9 % (11.6-14.8)
[2020-01-12 08:05] LABS: ALANINE AMINOTRANSFERASE 37 U/L (12-78); ALBUMIN 2.6 G/DL (3.4-5.0); ALBUMIN/GLOBULIN RATIO 0.8 (1.0-2.7); ALKALINE PHOSPHATASE 51 U/L (46-116); ANION GAP 11 mmol/L (5-15); ASPARTATE AMINO TRANSFERASE 14 U/L (15-37); BILIRUBIN,TOTAL 0.9 MG/DL (0.2-1.0); BLOOD UREA NITROGEN 12 mg/dL (7-18); CALCIUM 8.3 MG/DL (8.5-10.1); CARBON DIOXIDE 26 MMOL/L (21-32); CHLORIDE 104 MMOL/L (98-107); CREATININE 0.8 MG/DL (0.55-1.30); SODIUM 140 MMOL/L (136-145)
[2020-01-12 08:26] LABS: POTASSIUM 2.6 MMOL/L (3.5-5.1)
[2020-01-12 09:00] VITALS: BP 105/70
[2020-01-12] MEDS: Losartan 50mg tab ORAL SCH ×2 (09:00→19:16)
[2020-01-12] MEDS: Furosemide 40mg tab ORAL SCH (09:00)
[2020-01-12] MEDS: Heparin 5000 units/ml inj SUBQ SCH (09:34)
--- NOTE | 2020-01-12 10:17 | Pulmonology Progress Note ---
Assessment/Plan Assessment/Plan IMPRESSION: 1. Transferred to [facility] 2. Respiratory failure. Resolved. 3. Marked leukocytosis. persistent but lower 4. Chronic obstructive pulmonary disease. 5. History of hepatitis C. DISCUSSION: 1. Doing well on 2L/min O2 2. Off steroids 3. K adjustment 4. Continue abx 5. DVT prophylaxis. 6. S/p extubation 7. Diet per PMD 8. Broad antibiotic coverage. 9. I will follow carefully. Hypokalemic yesterday; labs pending this Am; saturating well; CXR better Hardik Medina M.D. Subjective Interval Events: Hypokalemic yesterday; labs pending this Am; saturating well; CXR better Constitutional: Reports: no symptoms HEENT: Repors: no symptoms Respiratory: Reports: no symptoms Cardiovascular: Reports: no symptoms Gastrointestinal/Abdominal: Reports: no symptoms Allergies: Coded Allergies: UNABLE TO ASSESS (Unverified , 01/01/20) Objective Last 24 Hour Vital Signs Date Time Temp Pulse Resp B/P (MAP) Pulse Ox O2 Delivery O2 Flow Rate FiO2 01/12/20 09:00 105/70 01/12/20 04:00 80 01/12/20 04:00 98.7 70 17 148/87 (107) 97 01/12/20 04:00 3.0 01/12/20 00:00 98.5 76 18 154/99 (117) 98 01/12/20 00:00 3.0 01/12/20 00:00 67 01/11/20 21:00 Nasal Cannula 4.0 01/11/20 20:32 70 20 97 Nasal Cannula 3.0 32 01/11/20 20:32 97 Nasal Cannula 3.0 32 01/11/20 20:00 76 01/11/20 20:00 98.9 63 18 150/89 (109) 97 01/11/20 16:00 75 01/11/20 16:00 3.0 01/11/20 16:00 97.7 78 20 154/78 (103) 96 01/11/20 13:09 157/95 01/11/20 12:00 82 01/11/20 12:00 3.0 01/11/20 11:30 97.5 67 20 146/77 (100) 99 Intake and Output 01/11/20 01/12/20 19:00 07:00 Intake Total 300 ml 480 ml Balance 300 ml 480 ml Intake Oral 300 ml 480 ml # Voids 2 4 # Bowel Movements 2 4 General Appearance: no acute distress HEENT: normocephalic Respiratory/Chest: chest wall non-tender, lungs clear Cardiovascular: normal peripheral pulses, normal rate Abdomen: normal bowel sounds Microbiology Date/Time Source Procedure Growth Status 01/10/20 20:25 Indwelling Cath Urine Culture - Preliminary NO GROWTH Resulted 01/09/20 16:00 Indwelling Cath Urine Culture - Final NO GROWTH AFTER 48 HOURS Complete Laboratory Tests 01/12/20 06:56: White Blood Count 16.0H, Red Blood Count 3.98L, Hemoglobin 13.1L, Hematocrit 37.5L, Mean Corpuscular Volume 94, Mean Corpuscular Hemoglobin 33.0H, Mean Corpuscular Hemoglobin Concent 35.0, Red Cell Distribution Width 11.9, Platelet Count 255, Mean Platelet Volume 5.8L, Neutrophils (%) (Auto) 67.4, Lymphocytes ( %) (Auto) 14.8L, Monocytes (%) (Auto) 14.4H, Eosinophils (%) (Auto) 2.4, Basophils (%) (Auto) 0.9, Erythrocyte Sedimentation Rate 12, Sodium Level 140, Potassium Level 2.6*L, Chloride Level 104, Carbon Dioxide Level 26, Anion Gap 11 , Blood Urea Nitrogen 12, Creatinine 0.8, Estimat Glomerular Filtration Rate > 60, Glucose Level 87, Calcium Level 8.3L, Total Bilirubin 0.9, Aspartate Amino Transf (AST/SGOT) 14L, Alanine Aminotransferase (ALT/SGPT) 37, Alkaline Phosphatase 51, C-Reactive Protein, Quantitative 0.6, Total Protein 5.7L, Albumin 2.6L, Globulin 3.1, Albumin/Globulin Ratio 0.8L 01/12/20 09:00: Vancomycin Level Trough [Pending] Current Medications Medications (Trade) Dose Ordered Sig/Samia Route PRN Reason Start Time Stop Time Status Last Admin Dose Admin Acetaminophen (Tylenol) 650 mg Q4H PRN ORAL fever 01/01/20 19:45 01/31/20 19:44 01/02/20 17:51 Acetaminophen (Tylenol) 650 mg Q4H PRN ORAL Mild Pain (Pain Scale 1-3) 01/01/20 19:45 01/31/20 19:44 01/08/20 12:48 Acetaminophen (Tylenol) 650 mg Q4H PRN RECTAL Mild Pain (Pain Scale 1-3) 01/01/20 19:45 01/31/20 19:44 Acetaminophen (Tylenol) 650 mg Q4H PRN RECTAL fever 01/01/20 19:45 01/31/20 19:44 Albuterol Sulfate (Proventil) 2.5 mg Q4H PRN HHN shortness of breath 01/11/20 10:15 01/16/20 10:14 Ceftriaxone Sodium 1 gm/ Dextrose 55 ml @ 110 mls/hr Q24H IV 01/01/20 22:00 01/17/20 21:59 01/11/20 21:38 Chlorhexidine Gluconate (Bhavana-Hex 2%) 1 applic DAILY@2000 TOPIC 01/02/20 20:00 04/01/20 19:59 01/11/20 21:38 Clonidine HCl (Catapres TTS-3) 1 patch QWEEK TDERMAL 01/07/20 15:00 04/06/20 14:59 01/07/20 14:21 Dextrose (Dextrose 50%) 25 ml Q30M PRN IV Hypoglycemia 01/06/20 11:30 04/05/20 11:29 Dextrose (Dextrose 50%) 50 ml Q30M PRN IV Hypoglycemia 01/06/20 11:30 04/05/20 11:29 Famotidine (Pepcid I.v.) 20 mg Q12HR IVP 01/01/20 21:00 01/31/20 20:59 01/12/20 09:34 Furosemide (Lasix) 40 mg DAILY ORAL 01/11/20 11:00 02/10/20 10:59 01/11/20 13:09 Haloperidol Lactate 5 mg/ Dextrose 56 ml @ 224 mls/hr Q6H PRN IVPB Agitation 01/03/20 10:00 02/17/20 09:59 01/09/20 04:57 Heparin Sodium (Porcine) (Heparin 5000 units/ml) 5,000 units EVERY 12 HOURS SUBQ 01/01/20 21:00 02/15/20 20:59 01/12/20 09:34 Losartan Potassium (Cozaar) 100 mg DAILY ORAL 01/11/20 11:00 02/10/20 10:59 01/11/20 13:09 Nitroglycerin (Ntg) 0.4 mg Q5M PRN SL Prn Chest Pain 01/01/20 19:45 01/31/20 19:44 Ondansetron HCl (Zofran) 4 mg Q6H PRN IVP Nausea & Vomiting 01/01/20 19:45 01/31/20 19:44 Polyethylene Glycol (Miralax) 17 gm DAILYPRN PRN ORAL Constipation 01/01/20 19:45 01/31/20 19:44 Potassium Chloride (K-Dur) 20 meq DAILY ORAL 01/11/20 11:00 04/10/20 10:59 01/12/20 09:31 Vancomycin HCl (Vanco rx to dose) 1 ea DAILY PRN MISC Per rx protocol 01/03/20 18:15 02/02/20 18:14 Vancomycin/Sodium Chloride 275 ml @ 137.5 mls/ hr Q12H IVPB 01/10/20 22:00 01/15/20 21:59 01/11/20 21:38 Hardik Medina MD Jan 12, 2020 10:17
[2020-01-12] MEDS: Vancomycin 1.5gm/NS Premix q24h IVPB SCH (11:52)
[2020-01-12 12:00] VITALS: BP 145/80
--- NOTE | 2020-01-12 14:23 | Surgery Progress Note ---
Surgery Progress Note Subjective Procedure Performed Left femoral triple-lumen venous central catheter insertion Additional Comments dc planning for today will remove line after vanco Objective Last 24 Hour Vital Signs Date Time Temp Pulse Resp B/P (MAP) Pulse Ox O2 Delivery O2 Flow Rate FiO2 01/12/20 12:00 Nasal Cannula 4.0 01/12/20 09:00 105/70 01/12/20 08:00 Nasal Cannula 4.0 01/12/20 04:00 80 01/12/20 04:00 98.7 70 17 148/87 (107) 97 01/12/20 04:00 3.0 01/12/20 00:00 98.5 76 18 154/99 (117) 98 01/12/20 00:00 3.0 01/12/20 00:00 67 01/11/20 21:00 Nasal Cannula 4.0 01/11/20 20:32 70 20 97 Nasal Cannula 3.0 32 01/11/20 20:32 97 Nasal Cannula 3.0 32 01/11/20 20:00 76 01/11/20 20:00 98.9 63 18 150/89 (109) 97 01/11/20 16:00 75 01/11/20 16:00 3.0 01/11/20 16:00 97.7 78 20 154/78 (103) 96 I&O Intake and Output 01/11/20 01/12/20 19:00 07:00 Intake Total 300 ml 480 ml Balance 300 ml 480 ml Intake Oral 300 ml 480 ml # Voids 2 4 # Bowel Movements 2 4 Dressing: dry Wound: clean Cardiovascular: RSR Respiratory: clear Abdomen: soft, non-tender, present bowel sounds Extremities: no edema, no tenderness, no cyanosis Laboratory Tests Test 01/12/20 06:56 01/12/20 09:00 White Blood Count 16.0 K/UL (4.8-10.8) H Red Blood Count 3.98 M/UL (4.70-6.10) L Hemoglobin 13.1 G/DL (14.2-18.0) L Hematocrit 37.5 % (42.0-52.0) L Mean Corpuscular Volume 94 FL (80-99) Mean Corpuscular Hemoglobin 33.0 PG (27.0-31.0) H Mean Corpuscular Hemoglobin Concent 35.0 G/DL (32.0-36.0) Red Cell Distribution Width 11.9 % (11.6-14.8) Platelet Count 255 K/UL (150-450) Mean Platelet Volume 5.8 FL (6.5-10.1) L Neutrophils (%) (Auto) 67.4 % (45.0-75.0) Lymphocytes (%) (Auto) 14.8 % (20.0-45.0) L Monocytes (%) (Auto) 14.4 % (1.0-10.0) H Eosinophils (%) (Auto) 2.4 % (0.0-3.0) Basophils (%) (Auto) 0.9 % (0.0-2.0) Erythrocyte Sedimentation Rate 12 MM/HR (0-20) Sodium Level 140 MMOL/L (136-145) Potassium Level 2.6 MMOL/L (3.5-5.1) *L Chloride Level 104 MMOL/L (98-107) Carbon Dioxide Level 26 MMOL/L (21-32) Anion Gap 11 mmol/L (5-15) Blood Urea Nitrogen 12 mg/dL (7-18) Creatinine 0.8 MG/DL (0.55-1.30) Estimat Glomerular Filtration Rate > 60 mL/min (>60) Glucose Level 87 MG/DL (74-106) Calcium Level 8.3 MG/DL (8.5-10.1) L Total Bilirubin 0.9 MG/DL (0.2-1.0) Aspartate Amino Transf (AST/SGOT) 14 U/L (15-37) L Alanine Aminotransferase (ALT/SGPT) 37 U/L (12-78) Alkaline Phosphatase 51 U/L (46-116) C-Reactive Protein, Quantitative 0.6 mg/dL (0.00-0.90) Total Protein 5.7 G/DL (6.4-8.2) L Albumin 2.6 G/DL (3.4-5.0) L Globulin 3.1 g/dL Albumin/Globulin Ratio 0.8 (1.0-2.7) L Vancomycin Level Trough 15.1 ug/mL (5.0-12.0) H Plan Problems: (1) COPD (chronic obstructive pulmonary disease) Assessment & Plan: As per pulmonology doing well extubated (2) Hyperkalemia (3) Respiratory failure Assessment & Plan: Intubated intensive care unit on vent support Unable to be weaned at this time Chest x-ray noted Sedation wean vent as improving possible extubation soon extubated doing well talkative but confused downgrade recovering labs noted cont abx (4) Rhabdomyolysis Assessment & Plan: IV fluid hydration Trend labs Improving (5) Elevated liver enzymes Assessment & Plan: Likely related to hypotension expressiveness originally. Improving with resuscitation. Likely shock. Hold on ultrasound tentatively Labs improving (6) LUDMILA (acute kidney injury) (7) Suspected COVID-19 virus infection Assessment & Plan: Continues to be ill appearing Pending swabs results initially PICC line placed and patient receiving medications through this but patient was able to pull through his restraints and with movement PICC line was dislodged patient unable to receive sedation medications and requiring urgent central venous catheter insertion. COVID negative Yousif Bates Jan 12, 2020 14:23
[2020-01-12 19:19] VITALS: BP 150/70
[2020-01-12 20:00] VITALS: BP 159/98
[2020-01-12] MEDS: Dyna-Hex 2% Top Sol 2oz TOPIC SCH (20:00)
[2020-01-12] MEDS ORDERED: FUROSEMIDE40 MG ORAL (20:51)
[2020-01-12] MEDS ORDERED: LOSARTAN POTASS50 MG ORAL (20:52)
[2020-01-12] MEDS ORDERED: POTASSIUM CHLO20 ME1 ORAL (20:52)
[2020-01-12] MEDS ORDERED: AMLODIPINE BESYL5 MG ORAL (20:53)
[2020-01-12] MEDS ORDERED: PROAIR HFA8.5 GM INH (20:54)
[2020-01-12] MEDS ORDERED: AUGMENTIN 875-1 EAC1 ORAL (20:54)
[2020-01-12] MEDS ORDERED: Tubing IV Secondary IV ONE (21:44)
[2020-01-12] MEDS ORDERED: NS 275ml ONE (21:44)
--- NOTE | 2020-01-13 | Discharge Summary ---
DATE OF ADMISSION: 01/01/2020 DATE OF DISCHARGE: 01/12/2020 HOSPITAL COURSE: This patient is a 64-year-old man with COPD who presents with shortness of breath and respiratory failure and was intubated in the emergency room and sedated. In the emergency room, CT of the lung showing right greater than left bilateral basilar atelectasis and infiltrate. CT of the brain was negative. There is a prior history of hepatitis C. PERTINENT PHYSICAL FINDINGS: See my dictation. He was intubated and sedated. LUNGS: Distant breath sounds. HEART: Regular rhythm and tachycardic. ABDOMEN: Mildly distended. Liver and spleen not palpable. GENITOURINARY: A Card was in place. EXTREMITIES: No edema. COURSE IN THE HOSPITAL: The patient was admitted with acute respiratory failure, required ICU care for much of his hospital stay. He did have drug screen on admission that was positive for opiates, benzodiazepines, and marijuana. It is not clear if this was done after medications were administered in the ER. The patient was given broad-spectrum antibiotics given concern for possible COVID-19 but COVID-19 test was negative. The patient was given broad-spectrum antibiotics, steroids, pulmonary care under Dr. Medina. He had glucose intolerance with steroids and required insulin sliding scale. There is a gradual improvement of his pulmonary status and he is weaned and extubated. He had agitated behavior and required sedation but subsequently this improved stabilized. Blood culture positive for Staphylococcus hemolyticus which was felt to be a contaminant. The patient had gradual improvement. He did have unsteady gait and required physical therapy. He also had poor IV access and had a PICC line which he pulled out and subsequently femoral line was placed by Dr. Bates and it was removed prior to discharge. He was very anxious to go home. Oxygen was arranged for home care as his room air saturation was 84% to 88 % and he was discharged home in improved condition. FINAL DIAGNOSES: 1. COPD with acute exacerbation. 2. Community-acquired pneumonia. 3. Acute hypoxemic respiratory failure. 4. History of chronic diastolic congestive heart failure. 5. Metabolic encephalopathy. 6. Glucose intolerance secondary to steroids. 7. History of chronic hepatitis C. 8. History of gastritis. 9. History of diastolic CHF. 10. Poor IV access. DISCHARGE DISPOSITION: Home on a low-salt diet and the following medications, ProAir inhaler p.r.n., albuterol via HHN every 4 hours p.r.n., amlodipine 5 mg daily, losartan 100 mg daily, Lasix 40 mg daily, potassium 20 mEq t.i.d. FOLLOWUP: He is to follow up with his primary care physician who is in [place] . Francois Dickey M.D. DR: Leobardo JOB#: [id number] CC:
--- NOTE | 2020-01-13 11:13 | CDS Physician Query ---
Clarification is required for compliance, coding accuracy, and to reflect severity of illness for this patient. Dear Dr. Francois Dickey Date: 01/13/2020 CDS Name: Radha Bean Clinical Documentation states: Op note: Pre-op Diagnosis: Leukocytosis, fever, lactic acidosis, sepsis, Respiratory insufficiency on ventilatory support Vitals/labs on admit: WBC 14.8, HR 100, RR 22, Temp 97.5 01/04 CXR: Bilateral infiltrate suspected Treatment: IV vancomycin and ceftriaxone A diagnosis of Sepsis was made in the medical record. Upon review, it is difficult to determine whether this diagnosis has been ruled in, ruled out,or is still being worked up. Please indicate below the status of the aforementioned diagnosis. [x] Treated and resolve [] Presumed and treated [] Currently under treatment [] Still being worked-up [] Ruled out Present on Admission: [] Yes [] No [] Clinically Undetermined Physician signature Date Please also document in your Progress Notes and/or Discharge Summary and indicate if the condition was present on admission. YUDID
== END 2020-01-12 21:45 | disposition home or self-care (01) | DRG 870 ==
LOC: EDBD 15:13 → EMR 15:45 → ICU 16:40 → EDBEDREQ 17:58 → 2E 01-09 21:43
PROC: 5A1955Z Respiratory Ventilation, Greater than 96 Consecutive Hours (ICD-10-PCS; principal; 2020-01-01)
PROC: 0BH17EZ Insertion of Endotracheal Airway into Trachea, Via Natural or Artificial Opening (ICD-10-PCS; principal; 2020-01-01)
PROC: 02HV33Z Insertion of Infusion Device into Superior Vena Cava, Percutaneous Approach (ICD-10-PCS; 2020-01-03)
PROC: B548ZZA Ultrasonography of Superior Vena Cava, Guidance (ICD-10-PCS; 2020-01-03)
PROC: 06HN33Z Insertion of Infusion Device into Left Femoral Vein, Percutaneous Approach (ICD-10-PCS; 2020-01-04)
DX: A41.9 Sepsis, unspecified organism (principal); J18.9 Pneumonia, unspecified organism; J96.01 Acute respiratory failure with hypoxia; G93.41 Metabolic encephalopathy; J44.1 Chronic obstructive pulmonary disease with (acute) exacerbation; M62.82 Rhabdomyolysis; N17.9 Acute kidney failure, unspecified; J44.0 Chronic obstructive pulmonary disease with (acute) lower respiratory infection; I50.32 Chronic diastolic (congestive) heart failure; B18.2 Chronic viral hepatitis C; R14.0 Abdominal distension (gaseous); E87.5 Hyperkalemia; I95.9 Hypotension, unspecified; F19.10 Other psychoactive substance abuse, uncomplicated
CPT/HCPCS: 31500; 36415; 36569; 36600; 70450; 71045; 71250; 74018; 76937; 80048; 80053; 80069; 80076; 80202; 80307; 81003; 82140; 82164; 82550; 82553; 82803; 82962; 83605; 83735; 84100; 84478; 84484; 85007; 85025; 85651; 86140; 86710; 87040; 87081; 87086; 87116; 87181; 87635; 92610; 94003; 94664; 96361; 96372; 96374; 96375; 99291; J1815; J7030; J7620; J8499